=== PATIENT | male | born 1955 | race Caucasian/White ===

== ENCOUNTER 2017-01-21 09:15 | Observation (INO) | payer MEDICARE ==
[2017-01-21] MEDS ORDERED: Ondansetron HCl/PF 4 MG/2 ML Vial ONE ×2 (11:34→17:20)
[2017-01-21] MEDS ORDERED: Fentanyl 100 MCG/2 ML VIAL ONE (11:34)
[2017-01-21 12:00] LABS: #Eosinphils 0.1 thou/uL (0.0-0.7); #Monocytes 0.5 thou/uL (0.11-0.59); #Neutrophils 3.5 thou/uL (1.40-6.50); %Basophils 0.1 % (0.0-1.0); %Eosinophils 2.5 % (0.0-10.0); %Lymphocytes 19.5 % (21.0-51.0); %Monocytes 10.1 % (0.0-10.0); Hematocrit 52.5 % (42.0-52.0); Mean Platelet Volume 8.3 fL (7.4-10.4); Red Blood Cell (RBC) Count 5.91 mill/uL (4.70-6.10); White Blood Cell (WBC) Count 5.2 thou/uL (4.8-10.8)
[2017-01-21 12:21] LABS: ALT (SGPT) 31 U/L (8-55); AST (SGOT) 60 U/L (5-34); Alkaline Phosphatase 88 U/L (40-150); Anion Gap 12 mmol/L (10-20); BUN (Urea Nitrogen) 8 mg/dL (8.4-25.7); Bilirubin, Total 3.7 mg/dL (0.2-1.2); CK (CPK) 138 U/L (30-200); Calc. Creatinine Clearance 0 mL/min (70-130); Calcium 8.4 mg/dL (7.8-10.44); Carbon Dioxide 21 mmol/L (23-31); Chloride 104 mmol/L (98-107); Estimated GFR-MDRD Greater than 90; Lipase 7 U/L (8-78); Protein, Total 7.7 g/dL (5.8-8.1)
[2017-01-21 12:26] LABS: Lactic Acid - Sepsis 1.9 mmol/L (0.5-2.2)
[2017-01-21 12:32] LABS: Troponin I Less than 0.010 ng/mL (< 0.028)
--- NOTE | 2017-01-21 12:47 | RAD ---
UPRIGHT PORTABLE CHEST 1 VIEW: Date: 01/21/17 HISTORY: 61-year-old male with nausea, vomiting, and abdominal pain. COMPARISON: 11/30/04. FINDINGS: Monitor leads overlie the chest. Heart size is within normal limits. The lungs are clear. IMPRESSION: No acute intrathoracic disease. Stable from prior study. POS: OFF
--- NOTE | 2017-01-21 14:40 | CT ---
CT ABDOMEN AND PELVIS WITH CONTRAST: HISTORY: Abdominal pain. Nausea. Vomiting. History of liver disease. COMPARISON: None. TECHNIQUE: Multiple axial tomograms obtained through the abdomen and pelvis with IV enhancement FINDINGS: The liver is small with irregular margins and mild heterogeneity, consistent with changes of cirrhos is. No focal liver mass identified. There are two or three tiny cystic lesions in the liver, measu ring up to 1 cm. There is splenomegaly, and there are venous varices in the splenic hilum, consiste nt with changes of portal hypertension. The pancreas is unremarkable. The adrenal glands appear normal. The kidneys are unremarkable. A small, 1 cm cyst in the left kidney is noted. There is no evidence of hydronephrosis. No enhancing renal mass lesion. There are several small gallstones seen in the dependent portion of the gallbladder, which is mildly distended. No evidence of pericholecystic edema. Small bowel loops appear of normal caliber. The appendix is normal. The urinary bladder is unremar kable. No significant prostatic enlargement. The aorta is normal in caliber. No adenopathy identi fied. IMPRESSION: 1. There are changes indicating cirrhosis and portal hypertension with splenomegaly. No evidence o f ascites. 2. Cholelithiasis is documented. 3. Tiny renal cyst and tiny hepatic cystic lesions are seen. POS: [facility]
[2017-01-21 17:20] LABS: Bilirubin Small (Negative); Blood, Urine Trace (Negative); Glucose, Urine (Dipstick) Negative (Negative); Ketone, Urine Negative (Negative); Nitrite Negative (Negative); Protein, Urine (Dipstick) Negative (Neg-Trace)
[2017-01-21 17:21] LABS: Bacteria/HPF None Seen HPF (None Seen); Hyaline Casts/LPF 0-3 HYALINE CAST LPF (0-3 Hyaline); Squamous Epithelial None Seen HPF (0-3); WBC/HPF 0-3 HPF (0-3)
[2017-01-21] MEDS ORDERED: Ondansetron HCl/PF 4 MG/2 ML Vial IVP PRN (19:54)
[2017-01-21] MEDS ORDERED: Ondansetron ODT 4 MG TAB SL PRN (19:54)
[2017-01-21 20:02] VITALS: BMI 32.1
[2017-01-21] MEDS ORDERED: Morphine Sulfate 2 MG/ML SYRINGE SLOW IVP PRN (20:42)
[2017-01-21] MEDS ORDERED: Ondansetron HCl/PF 4 MG/2 ML Vial SLOW IVP PRN (20:43)
[2017-01-21] MEDS: Morphine Sulfate 2 MG/ML SYRINGE SLOW IVP PRN (23:27)
[2017-01-21] MEDS: traZODone HCl 50 MG TAB PO PRN (23:28)
--- NOTE | 2017-01-22 01:16 | HP ---
DATE OF ADMISSION: 01/21/2017 CHIEF COMPLAINT: Abdominal pain and vomiting. HISTORY OF PRESENT ILLNESS: Mr. Hairston is a 61-year-old white male with a colorful past who comes in for 3 days history of abdominal pain, primarily in the right upper quadrant. This has been associa sai with vomiting numerous times until today, which he apparently has not had any vomiting. He does state he did have some blood in the vomitus on a couple of occasions, but also noted that he had a \\\\"cut in his mouth during that time.\\\\" Again, he has had no vomiting today, last bowel movement 3 days ago. No fevers or chills, no chest pain, no shortness of breath. He presented to the emergency department for evaluation, and was subsequently admitted, although I a m not quite sure why. GI was consulted and Dr. Carty did see the patient upon the floor this evenin g, labs have been ordered and the plan for abdominal ultrasound has been made for tomorrow. Since admission, the patient had some abdominal pain in the right upper quadrant, when I came him to see him, he was asleep. He denies any other new problems. In further talking with him, he tells me that his current of many years is leaving him and left 3 days ago when his symptoms started. He also tells me that he does have a history of cirrhosis, h e was told probably 5 years ago, but was never confirmed until more recently. When asked about risk factors, he did have one episode of 6 months of binge drinking when he was around 41 years old when his first , and also tells me that he has known hepatitis C from his years of drug using m any years ago. He has no other current complaints. No other history to give. PAST MEDICAL HISTORY: 1. Cirrhosis, likely secondary to hepatitis C. 2. Hepatitis C, chronic. Not confirmed, but per history. 3. Questionable dementia. 4. Depression. 5. Post-traumatic stress disorder: This is interesting that he states he has post-traumatic stress disorder not associated with \\\\"killing that man\\\\" but more from watching his . PAST SURGICAL HISTORY: None. HOME MEDICATIONS: Klonopin 0.5 mg p.o. q.p.m., has not taken in quite some time. ALLERGIES: No known drug allergies. He does not tolerate LATEX well. FAMILY HISTORY: Negative for history of clotting or bleeding disorders, he has no history of immune dysfunction. No premature coronary artery disease. SOCIAL HISTORY: Negative for habits x3 right now, he has smoked a half to 1 pack per day for many y ears. No IV drugs currently and no alcohol. He states he did used to do drugs \\\\"a long time ago\\\\ " and when asked about the multiple scars on his arms, did admit to skin popping. Additionally, his did leave him 3 days ago. REVIEW OF SYSTEMS: Ten point review of systems was performed and is negative for all other systems except as stated as per HPI. PHYSICAL EXAMINATION: VITAL SIGNS: Temperature 99.1, pulse 73, blood pressure 134/81, respiratory rate 13, satting 96% on room air. His pulse rate was in the 70s while he was complaining of 7-10/10 pain. GENERAL: He is awake. He is alert. He is oriented x3. He is a well-developed, well-nourished, wh ite male who appears to be in no acute distress. HEENT: Normocephalic and atraumatic. Pupils equal, round, reactive to light bilaterally, mucous me mbranes are moist. There are no visible lesions. He has no thrush. NECK: Supple. He has no JVD, no thyromegaly. Normal carotids. LUNGS: Clear anteriorly, some faint bibasilar crackles that do not clear with deep inspiration. He has no dullness. He has no prolonged expiratory phase. No wheezes, rales or rhonchi are present. CARDIOVASCULAR: Normal S1, S2. He has a regular rhythm and a normal rate. He has no audible murmur s. ABDOMEN: Soft and is nontender, nondistended. He has normoactive bowel sounds present in all 4 fab[address]ants. There is no rebound, rigidity, or guarding. He has no Durant sign. EXTREMITIES: Show no cyanosis, no clubbing. He does have 1+ edema to the mid tibial level. He has 1+ peripheral pulses in both bilateral lower extremities. SKIN: Warm, moist, and well perfused. He has diffuse scarring present on the reachable areas of hi s arms from the wrist up to the mid bicep region bilaterally. It is well healed. There is no evide nce of fluctuance, erythema, or recent wound. MUSCULOSKELETAL: Normal to inspection, there is no inflamed or hot joints. There is no palpable caroline int effusions. NEUROLOGIC: Cranial nerves II through XII are grossly intact with no focal deficits. He has normal speech. He has 5/5 strength. LABORATORY DATA AND IMAGING: CMP is normal except for an AST of 60. His total bilirubin is 3.7. T roponin I was negative at less than 0.10. MB was normal at 2.8 and CK was 138. CBC showed a white count of 5.2, hemoglobin 17.4, hematocrit of 58.5, and platelets are low at 80,00 0, likely consistent with cirrhosis. Urinalysis was negative. Chest x-ray was clear. There is no acute cardiopulmonary disease. CT of the abdomen and pelvis ladarius ws cirrhosis with splenomegaly and evidence of portal hypertension. There is no ascites and he does have cholelithiasis present. ASSESSMENT AND PLAN: 1. Nausea, vomiting, right upper quadrant pain: Certainly could present his gallbladder disease; h owever, I found interesting that the symptoms coincide when his left him [address] Carty from GI has been consulted and plans on doing an abdominal ultrasound, has multiple labs including hepatitis B and C serologies which I concur with. He also has an ammonia level checked, but current ly the patient is alert and oriented x3. We will start on lactulose 10 grams by mouth, which we maday l continue. We will increase his morphine a little bit as he is still complaining of discomfort, an d we will add something to help him sleep tonight at his request. 2. Cirrhosis: Likely secondary to hepatitis C. He denies having any treatment for hepatitis C at any point. 3. History of chronic hepatitis C: Status unknown. Antibodies being drawn. 4. Depression. 5. Post-traumatic stress disorder. 6. Past history of IV drug abuse with no known recent activity.
--- NOTE | 2017-01-22 04:21 | CON ---
DATE OF CONSULTATION: 01/21/2017 CHIEF COMPLAINT: Abdominal pain. HISTORY OF PRESENT ILLNESS: Mr. Hairston is a 61-year-old man with cirrhosis of the liver, who present ed to the emergency room with abdominal pain. He has had right upper quadrant aching, severe pain o n and off for years; however, has been more persistent over the last 3 days. The pain lasts for elgin rs at a time. With this episode, he did have persistent nausea, which is a new symptom with this pa in. When he gets the pain, he stops all oral intake and therefore is unsure if the pain actually wo rsens with oral intake, but his assumption is that it would. He has had no diarrhea, constipation o r blood in the stool. He normally has a bowel movement daily; however, his last bowel movement now has been 3 days ago. His weight has been stable. His last drink of alcohol was several months ago. He reports a significant psychiatric history with PTSD. When times get hard, he will fall back on drinking. He reports a history of hepatitis C infection. PAST MEDICAL HISTORY: Chronic liver disease and hepatitis C, PTSD, cirrhosis, possibly dementia. PAST SURGICAL HISTORY: Negative. FAMILY HISTORY: Negative for GI malignancies or liver disease. SOCIAL HISTORY: Relapses on alcohol occasionally, but has not drank for several months. No drugs. He does smoke half a pack to a pack per day. ALLERGIES: LATEX. MEDICATIONS: Currently as an inpatient include pantoprazole and morphine, has been on clonazepam in the past. REVIEW OF SYSTEMS: Negative x10 systems reviewed except as stated in the history of present illness . PHYSICAL EXAMINATION: VITAL SIGNS: Temperature 96.6, pulse 77, blood pressure 131/77. GENERAL: He is in no acute distress. He is awake and alert. HEENT: Eyes have no scleral icterus. Oropharynx is clear, without lesions. NECK: No cervical or supraclavicular lymphadenopathy. LUNGS: Clear to auscultation bilaterally. HEART: Regular rate and rhythm. ABDOMEN: Soft. He has no significant tenderness in his right upper quadrant to exam currently. Hi s bowel sounds are active. EXTREMITIES: No lower extremity edema. NEUROLOGICAL: There is no asterixis on neurological exam. LABORATORY DATA: White blood cell count 5.2, hemoglobin 17.4, platelets 80, creatinine 0.54 with so dium of 133. Bilirubin is 3.7, AST 60, ALT 31, alkaline phosphatase 88, albumin 2.7, lipase 7. Las t INR was in August with 1.2. IMAGING: He had a CT scan of the abdomen and pelvis in the ER, which showed cholelithiasis, nodular liver and changes of portal hypertension were noted, varices in the splenic hilum were noted and th e spleen was enlarged. IMPRESSION: 1. Right upper quadrant pain. This very well might be due to symptomatic cholelithiasis; however, given his decompensated cirrhosis, he would be at significant risk for surgical intervention. We wi ll check an ultrasound to check for changes of acute cholecystitis, but otherwise we should likely f ollow more conservative management. 2. Cirrhosis of liver advanced Child's class B with a Child score of 9. This is his last INR from August. He has a history of alcohol abuse and hepatitis C. We will check additional labs to further e valuate this. If he is not immune to hepatitis A and hepatitis B, should be vaccinated. 3. Post-traumatic stress disorder. He does report some confusion. His last bowel movement was 3 d ays ago. I would start him on lactulose now. 4. Splenic varices and portal hypertension. He should eventually undergo esophagogastroduodenoscop y for screening for esophageal varices. This can be done as an outpatient. 5. There is no evidence of ascites by the CT scan. 6. He is due for hepatoma screening. RECOMMENDATIONS: 1. Check INR, alpha fetoprotein, viral hepatitis panel, additional labs for other etiologies for ch ronic liver disease. 2. Ultrasound of the gallbladder and liver.
[2017-01-22] MEDS: Morphine Sulfate 2 MG/ML SYRINGE SLOW IVP PRN ×5 (04:43→22:27)
[2017-01-22 06:32] LABS: Prothrombin Time 17.6 SEC (12.0-14.7)
[2017-01-22 06:35] LABS: #Lymphocytes 0.7 thou/uL (1.20-3.40); #Monocytes 0.3 thou/uL (0.11-0.59); %Basophils 1.2 % (0.0-1.0); %Eosinophils 1.2 % (0.0-10.0); %Lymphocytes 23.8 % (21.0-51.0); %Monocytes 9.6 % (0.0-10.0); Hematocrit 46.2 % (42.0-52.0); Mean Platelet Volume 7.8 fL (7.4-10.4); Red Blood Cell (RBC) Count 5.27 mill/uL (4.70-6.10)
[2017-01-22 06:50] LABS: ALT (SGPT) 28 U/L (8-55); AST (SGOT) 57 U/L (5-34); Alkaline Phosphatase 84 U/L (40-150); Anion Gap 10 mmol/L (10-20); BUN (Urea Nitrogen) 9 mg/dL (8.4-25.7); Bilirubin, Total 3.4 mg/dL (0.2-1.2); Calc. Creatinine Clearance 208 mL/min (70-130); Calcium 8.3 mg/dL (7.8-10.44); Carbon Dioxide 21 mmol/L (23-31); Chloride 106 mmol/L (98-107); Estimated GFR-MDRD Greater than 90; Globulin 4.6 g/dL (2.4-3.5); Iron 235 ug/dL (65-175); Protein, Total 7.3 g/dL (5.8-8.1)
--- NOTE | 2017-01-22 08:29 | ULT ---
RIGHT UPPER QUADRANT ULTRASOUND: Date: 01-22-17 History: Right upper quadrant pain. Cholelithiasis noted on CT exam one day ago. FINDINGS: There is a nodular peripheral contour of the liver suggesting cirrhosis. There is heterogeneous echo texture of the liver. There is a small anechoic cystic structure seen in the left hepatic lobe measu ring 1.1 cm also seen on recent CT scan exam on 01-21-17 demonstrating characteristics most consiste nt with a small cyst. There is also an anechoic structure in the right hepatic lobe measuring 1.3 cm likely also attributable to a small cyst. There is echogenic material in the gallbladder lumen, some of which demonstrates posterior shadowing , consistent with cholelithiasis as well as gallbladder sludge. Gallbladder wall is at the upper jain its of normal in thickness measuring 0.3 cm. Common duct is normal in caliber measuring 0.5 cm in diameter. Pancreas is mostly obscured but the limited visualized portion of the pancreas, visualized portion o f the IVC, and right kidney demonstrate a normal sonographic appearance. The right kidney measures 1 0.4 cm in length. IMPRESSION: 1. Lobulated margin of the liver which also has a heterogeneous appearance and findings are likely a ttributable to cirrhosis. 2. Right and left hepatic lobe cyst. 3. Cholelithiasis as well as gallbladder sludge. Gallbladder wall is at the upper limits of normal i n thickness. POS: [facility]
[2017-01-22] MEDS ORDERED: Famotidine/PF 20 mg/2ml Vial SLOW IVP SCH (09:00)
[2017-01-22] MEDS ORDERED: Pantoprazole 40 MG VIAL IVP SCH (09:00)
--- NOTE | 2017-01-22 13:06 | PDOC.PN ---
- Subjective Encounter Start Date: 01/22/17 Encounter Start Time: 13:04 no n/v no f/c no cp - Objective Resuscitation Status: Resuscitation Status FULL:Full Resuscitation MAR Reviewed: Yes Vital Signs & Weight: Vital Signs (12 hours) Temp Pulse Resp BP Pulse Ox 01/22/17 11:35 97.8 F 65 16 134/78 97 01/22/17 08:16 98.1 F 56 L 20 01/22/17 08:05 98.1 F 56 L 20 143/83 H 96 Weight Weight 237 lb 1.6 oz I&O: 01/21/17 01/22/17 01/23/17 06:59 06:59 06:59 Intake Total 11 Balance 11 Result Diagrams: 01/22/17 06:09 01/22/17 06:09 Phys Exam - Physical Examination Constitutional: NAD HEENT: PERRLA Neck: no JVD Respiratory: no wheezing Cardiovascular: no significant murmur Gastrointestinal: non-tender Musculoskeletal: pulses present Neurological: normal sensation Psychiatric: A&O x 3 Dx/Plan (1) Abdominal pain Code(s): R10.9 - UNSPECIFIED ABDOMINAL PAIN Status: Acute (2) Cirrhosis Code(s): K74.60 - UNSPECIFIED CIRRHOSIS OF LIVER Status: Acute (3) Gall stone Code(s): K80.20 - CALCULUS OF GALLBLADDER W/O CHOLECYSTITIS W/O OBSTRUCTION Status: Acute (4) Nausea & vomiting Code(s): R11.2 - NAUSEA WITH VOMITING, UNSPECIFIED Status: Acute (5) Thrombocytopenia Code(s): D69.6 - THROMBOCYTOPENIA, UNSPECIFIED Status: Acute (6) Chronic hepatitis C Code(s): B18.2 - CHRONIC VIRAL HEPATITIS C Status: Chronic (7) Mild protein-energy malnutrition Code(s): E44.1 - MILD PROTEIN-CALORIE MALNUTRITION Status: Chronic (8) Obesity (BMI 30.0-34.9) Code(s): E66.9 - OBESITY, UNSPECIFIED Status: Chronic (9) Tobacco dependence Code(s): F17.200 - NICOTINE DEPENDENCE, UNSPECIFIED, UNCOMPLICATED Status: Chronic - Plan * f/u gi plan for gall stone * start propranolol, spironolacton * monitor labs
[2017-01-22] MEDS ORDERED: Spironolactone 25 MG TAB PO SCH (13:15)
[2017-01-22] MEDS: traZODone HCl 50 MG TAB PO PRN (22:22)
--- NOTE | 2017-01-22 23:10 | PRG ---
DATE OF SERVICE: 01/22/2017 SUBJECTIVE: Mr. Hairston has had multiple bowel movements with incontinence following the dose of lact ulose. His right upper quadrant pain is improved. It is unclear if that improved with the bowel mo vements or if that is just the usual nature of his pain that comes and goes. OBJECTIVE: VITAL SIGNS: Temperature 98.5, pulse 53, blood pressure 118/69. GENERAL: He is in no acute distress. He is awake and alert. LUNGS: Clear to auscultation bilaterally. HEART: Regular rate and rhythm. ABDOMEN: Soft. Mild tenderness in the right upper quadrant without guarding. Bowel sounds are pre sent and nondistended. EXTREMITIES: No lower extremity edema. IMPRESSION: 1. Right upper quadrant pain. This is most likely secondary to symptomatic cholelithiasis; however , functional pain might also be contributing and also he had some constipation which is currently re solved. Pain is improved today; however, it comes and goes. Ideally, he would undergo cholecystect donna for symptomatic cholelithiasis; however, given his decompensated advanced child's B cirrhosis, w ould try to avoid surgery on his gallbladder if possible. The ultrasound does not show changes of a cute cholecystitis. He is really minimally tender at this point. There is a significant functional overlay with the psychiatric history. We will hold off surgical referral at this time. 2. Decompensated cirrhosis with a child score of 9. This is most likely due to hepatitis C by hist ory. However, the viral load is pending. RECOMMENDATIONS: 1. Stop lactulose as he had incontinence and diarrhea with a single dose of 15 mL. 2. If his pain returns and becomes persistently severe, then we might ultimately have to consider s urgical options. 3. For now, I would plan discharge tomorrow and outpatient followup for maintenance of his cirrhosi s. 4. Await additional blood work and was sent for evaluation of liver disease. Await alpha fetoprote in. His iron saturation was noted to be elevated, so hemochromatosis gene PCR has been requested. 5. Anticipate discharge home tomorrow with outpatient followup for routine care of his cirrhosis.
[2017-01-23 05:30] LABS: ALT (SGPT) 31 U/L (8-55); AST (SGOT) 58 U/L (5-34); Alkaline Phosphatase 87 U/L (40-150); Anion Gap 11 mmol/L (10-20); BUN (Urea Nitrogen) 10 mg/dL (8.4-25.7); Bilirubin, Total 3.3 mg/dL (0.2-1.2); Calc. Creatinine Clearance 191 mL/min (70-130); Calcium 8.4 mg/dL (7.8-10.44); Carbon Dioxide 19 mmol/L (23-31); Chloride 109 mmol/L (98-107); Estimated GFR-MDRD Greater than 90; Protein, Total 7.7 g/dL (5.8-8.1)
[2017-01-23 07:30] LABS: Hepatitis A Total ABS Positive (Negative)
[2017-01-23 08:11] VITALS: BP 139/81; TEMP 98.3
[2017-01-23] MEDS: Morphine Sulfate 2 MG/ML SYRINGE SLOW IVP PRN (09:41)
--- NOTE | 2017-01-23 11:33 | PDOC.PN ---
- Subjective Encounter Start Date: 01/23/17 Encounter Start Time: 11:32 Patient seen and examined. No new complaints. No overnight events - Objective Resuscitation Status: Resuscitation Status FULL:Full Resuscitation MAR Reviewed: Yes Vital Signs & Weight: Vital Signs (12 hours) Temp Pulse Resp BP BP Pulse Ox 01/23/17 08:13 98.3 F 54 L 16 01/23/17 07:55 98.3 F 54 L 16 139/81 95 01/23/17 05:00 61 18 131/75 Weight Weight 237 lb 1.6 oz I&O: 01/22/17 01/23/17 01/24/17 06:59 06:59 06:59 Intake Total 12 255 Balance 12 255 Result Diagrams: 01/22/17 06:09 01/23/17 04:58 Phys Exam - Physical Examination Constitutional: NAD HEENT: PERRLA Neck: no JVD Respiratory: no wheezing Cardiovascular: no significant murmur Gastrointestinal: non-tender Musculoskeletal: pulses present Neurological: moves all 4 limbs Psychiatric: A&O x 3 Skin: normal turgor Dx/Plan (1) Abdominal pain Code(s): R10.9 - UNSPECIFIED ABDOMINAL PAIN Status: Acute (2) Cirrhosis Code(s): K74.60 - UNSPECIFIED CIRRHOSIS OF LIVER Status: Acute (3) Gall stone Code(s): K80.20 - CALCULUS OF GALLBLADDER W/O CHOLECYSTITIS W/O OBSTRUCTION Status: Acute (4) Nausea & vomiting Code(s): R11.2 - NAUSEA WITH VOMITING, UNSPECIFIED Status: Acute (5) Thrombocytopenia Code(s): D69.6 - THROMBOCYTOPENIA, UNSPECIFIED Status: Acute (6) Chronic hepatitis C Code(s): B18.2 - CHRONIC VIRAL HEPATITIS C Status: Chronic (7) Mild protein-energy malnutrition Code(s): E44.1 - MILD PROTEIN-CALORIE MALNUTRITION Status: Chronic (8) Obesity (BMI 30.0-34.9) Code(s): E66.9 - OBESITY, UNSPECIFIED Status: Chronic (9) Tobacco dependence Code(s): F17.200 - NICOTINE DEPENDENCE, UNSPECIFIED, UNCOMPLICATED Status: Chronic - Plan * doing better * d/c home * out pt f/u with pcp and gi
--- NOTE | 2017-01-24 06:20 | DIS ---
DATE OF ADMISSION: 01/21/2017 DATE OF DISCHARGE: 01/23/2017 DISCHARGE DIAGNOSES: 1. Right upper quadrant pain, possibly secondary to combination of symptomatic cholelithiasis and c onstipation. 2. Cirrhosis of the liver advanced Child's class B with a Child score of 9. 3. History of alcohol abuse. 4. Hepatitis C. 5. Posttraumatic stress disorder. 6. Splenic varices and portal hypertension. 7. Mild protein energy malnutrition. 8. Thrombocytopenia secondary to cirrhosis. 9. Nausea and vomiting resolved. 10. Mild tobacco dependence, stable. 11. Obesity with a BMI between 30 and 34. DISCHARGE MEDICATIONS: Include propranolol 5 mg p.o. q.8 hours, Aldactone 25 mg p.o. daily, Zofran 4 mg oral dissolving tablets q.8 hours p.r.n. for nausea and vomiting and Nexium 20 mg p.o. daily. CONSULTANTS: Dr. Carty. DIAGNOSTIC DATA: The patient's studies done this hospital stay was CT scan of the abdomen and pelvi s, which showed cirrhosis, portal hypertension with splenomegaly. No evidence of ascites or choleli thiasis. Also has an ultrasound, which pretty much showed cirrhosis. BRIEF HOSPITAL COURSE: A 61-year-old pleasant gentleman came into the hospital with abdominal pain and vomiting. Please refer to the admitting physician's H\T\P for further details. The nausea and vomiting resolved with IV fluids and he got some pain medications for the abdominal pain. CT scan s howed gallstones. Because of his decompensated cirrhosis, he was not a good candidate for surgery; we decided to do conservative management. He improved with this treatment and GI is right now okay with this discharge. They also tested some of the lab work, which they ordered this hospital stay a re pending like the alpha-fetoprotein and PCR, which they will follow up in the office as an outpati ent. He is right now medically stable to be discharged to be followed by PCP and GI. He is asked t o come back to the emergency room in case symptoms recur. Total time for this discharge took 35 minutes.
[2017-01-24 13:16] LABS: Hep C PCR-Quant 666000 IU/mL (.)
[2017-01-24 15:25] LABS: Alpha-1-Antitrypsin 161 mg/dL (90-200)
== END 2017-01-23 13:48 | disposition home or self-care (01) ==
LOC: ERS 09:15 → 2SW 19:33
PROVIDERS: ADMIT Internal Medicine; ATTEND Internal Medicine
DX: R10.11 Right upper quadrant pain (principal); K74.60 Unspecified cirrhosis of liver; F10.11 Alcohol abuse, in remission; B19.20 Unspecified viral hepatitis C without hepatic coma; F43.10 Post-traumatic stress disorder, unspecified; I86.8 Varicose veins of other specified sites; K76.6 Portal hypertension; E44.1 Mild protein-calorie malnutrition; D69.59 Other secondary thrombocytopenia; R11.2 Nausea with vomiting, unspecified; E66.9 Obesity, unspecified; K80.20 Calculus of gallbladder without cholecystitis without obstruction; F32.9 Major depressive disorder, single episode, unspecified; F17.210 Nicotine dependence, cigarettes, uncomplicated; R16.1 Splenomegaly, not elsewhere classified; Z68.32 Body mass index [BMI] 32.0-32.9, adult; Z79.899 Other long term (current) drug therapy; Z91.040 Latex allergy status; Z86.59 Personal history of other mental and behavioral disorders
CPT/HCPCS: 71010; 74177; 76705; 80053 ×3; 81256; 82103; 82104; 82105; 82550; 82553; 82728; 83516 ×2; 83540; 83550; 83605; 83690; 84484; 85025 ×2; 85610; 86704; 86706; 86708; 87340; 87522; 87902; 93005; 94760; 96361; 96374; 96375 ×3; 96376 ×4; 99285; G0378; 36415; 81003; 81015; A4216; C9113; J2270; J2405; J3010

== ENCOUNTER 2017-02-07 06:21 | Emergency (ER) | payer MEDICARE ==
[2017-02-07 06:56] LABS: Hematocrit 44.9 % (42.0-52.0); Mean Platelet Volume 7.5 fL (7.4-10.4); Red Blood Cell (RBC) Count 4.99 mill/uL (4.70-6.10); White Blood Cell (WBC) Count 2.8 thou/uL (4.8-10.8)
[2017-02-07 07:05] LABS: ALT (SGPT) 34 U/L (8-55); AST (SGOT) 51 U/L (5-34); Alkaline Phosphatase 82 U/L (40-150); Anion Gap 13 mmol/L (10-20); BUN (Urea Nitrogen) 10 mg/dL (8.4-25.7); Bilirubin, Total 0.9 mg/dL (0.2-1.2); Calc. Creatinine Clearance 0 mL/min (70-130); Calcium 8.2 mg/dL (7.8-10.44); Carbon Dioxide 19 mmol/L (23-31); Chloride 105 mmol/L (98-107); Estimated GFR-MDRD 38; Globulin 4.2 g/dL (2.4-3.5); Lipase 20 U/L (8-78); Protein, Total 6.8 g/dL (5.8-8.1)
[2017-02-07 07:16] LABS: Band 11 % (5-11); Neutrophil 42 % (42-75)
[2017-02-07 08:35] LABS: Bilirubin Negative (Negative); Blood, Urine Negative (Negative); Glucose, Urine (Dipstick) Negative (Negative); Ketone, Urine Negative (Negative); Nitrite Negative (Negative); Protein, Urine (Dipstick) > or equal to 300 mg/dL (Neg-Trace); Urobilinogen 0.2 mg/dL (0.2-1.0)
[2017-02-07 08:37] LABS: Bacteria/HPF None Seen HPF (None Seen); Hyaline Casts/LPF 0-3 HYALINE CAST LPF (0-3 Hyaline); RBC/HPF 0-3 HPF (0-3)
[2017-02-07 09:01] LABS: Renal Epithelial None Seen HPF (0-3); Transitional Epithelial NONE SEEN HPF (0-3); WBC/HPF 0-3 HPF (0-3)
== END 2017-02-07 10:44 | disposition home or self-care (01) ==
LOC: ERS 06:21
DX: L28.0 Lichen simplex chronicus (principal); K74.60 Unspecified cirrhosis of liver; F17.210 Nicotine dependence, cigarettes, uncomplicated; F43.10 Post-traumatic stress disorder, unspecified; F03.90 Unspecified dementia, unspecified severity, without behavioral disturbance, psychotic disturbance, mood disturbance, and anxiety; F32.9 Major depressive disorder, single episode, unspecified
CPT/HCPCS: 36415; 80053; 81003; 81015; 83690; 85025; 87070; 87205; 99406

== ENCOUNTER 2018-10-08 18:09 | Emergency (ER) | payer MEDICARE ==
--- NOTE | 2018-10-08 18:35 | RAD ---
EXAM: Single view of the chest HISTORY: Chest congestion for 6 months COMPARISON: 01/21/2017 FINDINGS: Single view of the chest shows a normal sized cardiomediastinal silhouette. There is no derek dence of consolidation, mass, or pleural effusion. Degenerative changes are seen in the spine. IMPRESSION: No evidence of acute cardiopulmonary disease
[2018-10-08 19:20] LABS: #Basophils 0.1 thou/uL (0.0-0.2); #Eosinphils 0.3 thou/uL (0.0-0.7); #Lymphocytes 3.8 thou/uL (1.20-3.40); #Monocytes 1.4 thou/uL (0.11-0.59); #Neutrophils 5.9 thou/uL (1.40-6.50); %Eosinophils 2.4 % (0.0-10.0); %Lymphocytes 32.9 % (21.0-51.0); %Monocytes 12.2 % (0.0-10.0); %Neutrophils 51.4 % (42.0-75.0); Hemoglobin 17.7 g/dL (14.0-18.0); Mean Corpuscular HGB CONC 34.6 g/dL (32.0-36.0); Mean Corpuscular Hemoglobin 30.1 pg (27.0-31.0); Mean Corpuscular Volume 86.9 fL (78.0-98.0); Mean Platelet Volume 7.2 fL (7.4-10.4); Platelet Count 164 thou/uL (130-400); RBC Distribution Width 14.9 % (11.5-14.5); Red Blood Cell (RBC) Count 5.89 mill/uL (4.70-6.10); White Blood Cell (WBC) Count 11.5 thou/uL (4.8-10.8)
[2018-10-08 19:41] LABS: ALT (SGPT) 44 U/L (8-55); AST (SGOT) 71 U/L (5-34); Albumin 2.9 g/dL (3.4-4.8); Alkaline Phosphatase 144 U/L (40-150); Anion Gap 13 mmol/L (10-20); BUN (Urea Nitrogen) 12 mg/dL (8.4-25.7); Bilirubin, Total 2.2 mg/dL (0.2-1.2); Calc. Creatinine Clearance 0 mL/min (70-130); Calcium 8.4 mg/dL (7.8-10.44); Carbon Dioxide 19 mmol/L (23-31); Chloride 108 mmol/L (98-107); Estimated GFR-MDRD Greater than 90; Globulin 4.5 g/dL (2.4-3.5); Glucose 126 mg/dL (80-115); Potassium 4.2 mmol/L (3.5-5.1); Protein, Total 7.4 g/dL (5.8-8.1); Sodium 136 mmol/L (136-145)
== END 2018-10-08 22:03 | disposition home or self-care (01) ==
LOC: ERS 18:09
DX: J44.1 Chronic obstructive pulmonary disease with (acute) exacerbation (principal); F32.9 Major depressive disorder, single episode, unspecified; F03.90 Unspecified dementia, unspecified severity, without behavioral disturbance, psychotic disturbance, mood disturbance, and anxiety; F17.210 Nicotine dependence, cigarettes, uncomplicated
CPT/HCPCS: 36415; 71045; 80053; 85025

== ENCOUNTER 2018-10-17 11:37 | Inpatient (IN) | payer MEDICARE ==
[2018-10-17 12:35] LABS: #Eosinphils 0.1 thou/uL (0.0-0.7); #Monocytes 0.9 thou/uL (0.11-0.59); #Neutrophils 9.3 thou/uL (1.40-6.50); %Eosinophils 0.5 % (0.0-10.0); %Lymphocytes 8.6 % (21.0-51.0); %Monocytes 8.3 % (0.0-10.0); %Neutrophils 82.6 % (42.0-75.0); Hemoglobin 15.8 g/dL (14.0-18.0); Mean Corpuscular HGB CONC 33.2 g/dL (32.0-36.0); Mean Corpuscular Hemoglobin 29.8 pg (27.0-31.0); Mean Corpuscular Volume 89.7 fL (78.0-98.0); Mean Platelet Volume 8.1 fL (7.4-10.4); Platelet Count 91 thou/uL (130-400); RBC Distribution Width 16.1 % (11.5-14.5); Red Blood Cell (RBC) Count 5.31 mill/uL (4.70-6.10); White Blood Cell (WBC) Count 11.3 thou/uL (4.8-10.8)
[2018-10-17 12:53] LABS: ALT (SGPT) 35 U/L (8-55); AST (SGOT) 43 U/L (5-34); Albumin 2.6 g/dL (3.4-4.8); Alkaline Phosphatase 107 U/L (40-150); Anion Gap 9 mmol/L (10-20); BUN (Urea Nitrogen) 10 mg/dL (8.4-25.7); Bilirubin, Total 4.6 mg/dL (0.2-1.2); Calc. Creatinine Clearance 0 mL/min (70-130); Calcium 7.9 mg/dL (7.8-10.44); Carbon Dioxide 19 mmol/L (23-31); Chloride 106 mmol/L (98-107); Estimated GFR-MDRD Greater than 90; Globulin 3.7 g/dL (2.4-3.5); Glucose 123 mg/dL (80-115); Lipase 26 U/L (8-78); Potassium 3.8 mmol/L (3.5-5.1); Protein, Total 6.3 g/dL (5.8-8.1); Sodium 130 mmol/L (136-145)
[2018-10-17 12:55] LABS: Platelet Morphology Comment Appears Decreased; RBC Morphology Normal
--- NOTE | 2018-10-17 12:56 | ULT ---
US Gallbladder RUQ HISTORY: Right upper quadrant pain. COMPARISON: None. FINDINGS: Exam is technically difficult due to body habitus and bowel gas. Real-time imaging of the r ight upper quadrant showed a thick walled gallbladder with marked gallbladder wall edematous change. Small stones are present and some sludge. Gallbladder is very tortuous in appearance. The com mon bile duct is 5 mm. Liver parenchyma shows heterogeneity which would suggest cirrhotic change is difficult to assess due to technical factors described above. A small cyst is seen. The pancreas is obscured. The right kidney is nonobstructed and normal in size. IMPRESSION: 1. Small gallstones with a very abnormally thick-walled edematous appearing gallbladder raise the pos sibility of an acute cholecystitis. It would be less likely that these changes are on the basis of intrinsic liver disease. There are nodular cirrhotic changes of the liver.
[2018-10-17] MEDS ORDERED: Ketorolac Tromethamine 30 MG/ML VIAL ONE (14:05)
[2018-10-17] MEDS ORDERED: Morphine 4 MG/ML VIAL ONE (14:05)
[2018-10-17 14:31] LABS: INR-International Normal Ratio 1.2; PTT 31.5 SEC (22.9-36.1)
[2018-10-17] MEDS ORDERED: Acetaminophen 325 MG TAB PO PRN (14:55)
[2018-10-17] MEDS ORDERED: Benzonatate 100 MG CAP PO PRN (14:55)
[2018-10-17] MEDS ORDERED: Acetaminophen 650 MG Suppository PR PRN (14:55)
[2018-10-17] MEDS ORDERED: Sodium Chloride 0.65% Nasal 44 ML BOT EA NARE PRN (14:55)
[2018-10-17] MEDS ORDERED: Bisacodyl 5 MG TAB PO PRN ×2 (14:55)
[2018-10-17] MEDS ORDERED: hydrALAZINE 20 MG/ML VIAL SLOW IVP PRN (14:55)
[2018-10-17] MEDS ORDERED: cloNIDine 0.1 MG TAB PO PRN (14:55)
[2018-10-17] MEDS ORDERED: Diabetic Tussin 200 MG/10 ML UDCUP PO PRN (14:55)
[2018-10-17] MEDS ORDERED: Ondansetron PF 4 MG/2 ML Vial IVP PRN (14:55)
[2018-10-17] MEDS ORDERED: Senokot S 8.6-50 MG TAB PO PRN ×2 (14:55)
[2018-10-17] MEDS ORDERED: Sodium Chloride 0.9% (PF) 10 ML VIAL FS PRN (15:56)
[2018-10-17] MEDS ORDERED: MEROPENEM 1 GM/50 ML 1 GM in Premix Bag 1 BAG IVPB SCH (16:00)
[2018-10-17] MEDS ORDERED: Pantoprazole 40 MG VIAL IVP SCH (16:00)
--- NOTE | 2018-10-17 16:22 | HP ---
PRIMARY CARE PHYSICIAN: Magdaleno Dunn MD CHIEF COMPLAINT: Abdominal pain. HISTORY OF PRESENTING ILLNESS: Mr. Hairston is a very pleasant 62-year-old male with past medical history of hepatitis C leading to cirrhosis, who is currently admitted at [facility], was brought into the ER with above-mentioned complaint. History is mainly obtained by discussing with the patient himself. It is reviewed by discussion with the ER physician and charts are reviewed as above. Mr. Hairston reports that he has been in his usual health up until yesterday afternoon. He started to have sudden onset of sharp right upper quadrant and epigastric pain. Pain was intermittent in nature, 9/10 in intensity and radiated to his right lower quadrant. It was not associated with any nausea, vomiting, or diarrhea. He did not have any fever or chills. He could not account any relieving factors. He denies any similar symptoms in the past. He denies any blood in his stools or any dark colored stools. His last alcoholic drink was just before 09 of October. He said that he has been completely sober for the last seven months. He used to drink heavily up until 2012. In the emergency room, he underwent a general evaluation. His vitals were stable at the time of presentation. He had an ultrasound done, which showed a thick walled, adenomatous-appearing gallbladder with possible stones, raising the possibility of acute cholecystitis. His bilirubin was elevated as well with T bilirubin of 4.6. WBCs were 11.3 with 82% neutrophils. He is now being admitted to Internal Medicine team for acute cholecystitis. The emergency room physician, Dr. Esteves has discussed the case with on-call surgeon, Dr. See, who requests GI evaluation prior to possible cholecystectomy. PAST MEDICAL HISTORY: 1. History of hepatitis C. 2. History of cirrhosis, either due to hepatitis C or chronic alcoholism. 3. History of portal gastropathy. The patient reports that he was supposed to follow up with GI, Dr. Carty, for EGD, but never was able to do so. 4. Depression. 5. PTSD. PAST SURGICAL HISTORY: None as per the patient. ALLERGIES: NO KNOWN MEDICATION ALLERGIES. PAST PSYCHIATRIC HISTORY: History of severe depression with most recent suicide attempts that is why he is at [facility]. FAMILY HISTORY: No significant family history of any bleeding or clotting disorders. No premature coronary artery disease. SOCIAL HISTORY: He denies any recent alcohol use except for that mentioned in the HPI. Denies any drug abuse. Smokes about a half pack of cigarettes on a daily basis. HOME MEDICATIONS: Not updated yet. The patient does not remember the medications. REVIEW OF SYSTEMS: A 14-point review of system is done, it is negative except for those mentioned in the history and physical. PHYSICAL EXAMINATION: VITAL SIGNS: Upon presentation, blood pressure 122/76, pulse of 82, respirations 16, saturating 96% on room air, and temperature 98.3. GENERAL: No acute distress. Awake, alert, and oriented x3. Appears mildly jaundiced. HEENT: No scleral icterus. No conjunctival pallor. Head is normocephalic and atraumatic. Pupils are equal and reactive to light and accommodation. Extraocular movement intact. NECK: Supple without any lymphadenopathy, JVD, or bruit. CHEST: Clear to auscultation without any wheezing, rales, or rhonchi. Rate rhythm is regular without any murmurs, rubs, or gallops. ABDOMEN: Tender to palpation in the epigastric region as well as right upper quadrant. He does not appear to have any rebound, guarding, or rigidity. Bowel sounds are heard in all 4 quadrants. EXTREMITIES: Free of any cyanosis, clubbing, or edema. PSYCHIATRIC: Normal affect. SKIN: Free of any rashes or bruises. Feels warm and dry to touch. IMPRESSION AND PLAN: 1. Acute cholecystitis, likely due to gallstones. The patient will require Gastroenterology and General Surgery evaluations with possible ERCP as well as cholecystectomy. We will start him on meropenem for IV antibiotics and IV fluids and keep him n.p.o. after midnight. He is relatively hemodynamically stable and pain medications will be ordered as needed. We will repeat his liver enzymes in the morning. He does have history of cirrhosis, but according to the radiologist, it does not seem like that his cirrhotic morphology is responsible for his presenting symptoms at this time. 2. Abdominal pain due to #1. 3. Mild leukocytosis, this one is secondary to cholecystitis. We will start him on empiric antibiotic for GI coverage and recheck in the morning. 4. Hyperbilirubinemia. Once again, it is due to acute cholecystitis and cholelithiasis. 5. History of hepatitis C and cirrhosis, appears rather stable. Currently not having any acute issues. 6. History of depression and recent suicidal ideation. [facility] public service representative is in the room and they will follow the patient along in the inpatient setting as well. 7. History of alcohol abuse, currently abstinent. 8. Thrombocytopenia, it appears chronic. We will avoid any pharmacological DVT prophylaxis due to high risk of bleeding. Use SCDs instead. DISPOSITION: Mr. Hairston is currently being admitted to the non-ortho surgical floor for acute cholecystitis, most likely will require cholecystectomy. Estimated length of stay at this time is at least 2 to 3 midnights. Further management will depend upon his clinical course. Job ID: [id number]
[2018-10-17] MEDS: Sodium Chloride 0.9% 1,000 ML IV SCH (20:33)
--- NOTE | 2018-10-17 20:46 | CON ---
DATE OF CONSULTATION: 10/17/2018 REQUESTING PHYSICIAN: Dr. Law. REASON FOR CONSULTATION: Cholecystitis and cirrhosis. HISTORY OF PRESENT ILLNESS: Mr. Sridhar Hairston is a 62-year-old man with a history of cirrhosis secondary to hepatitis C and prior alcohol abuse. He was seen by my GI colleague, Dr. Enio Carty in hospital consultation for this back in late 2017. He was found to have hepatitis C genotype 1a. The patient has not really followed up for his cirrhosis. He has thrombocytopenia, but the cirrhosis appears to be otherwise fairly well compensated. There is no history of ascites or encephalopathy. His hepatitis C is untreated. The patient has a severe depression and is actually at the psychiatric facility at this time following recent suicide attempt. He states that last night around midnight, he had a fairly sudden onset of epigastric pain, which then shifted to the right upper quadrant. It was escalating and becoming more, more severe for several hours. There was some minimal nausea, but no vomiting. No fever with this. He never had any pain like this before. Upon presentation, he was found to have elevation of total bilirubin to 4.6, but it appears this is a chronic elevation, baseline is about 3, AST is 43 and LFTs otherwise normal, normal lipase. An abdominal ultrasound showed significant gallbladder wall thickening and edema with stones in the gallbladder lumen, all consistent with acute cholecystitis. The liver appears nodular. The common bile duct is only 5 mm in diameter. The patient has responded very well to IV morphine. He is actually sitting up in the side of his bed, eating barbecue chicken dinner and doing pretty well with this. He said he has had normal bowel movements earlier today. Surgical evaluation is pending. REVIEW OF SYSTEMS: Full review of systems including constitutional, head, eyes, ears, nose, throat, GI, , cardiovascular, respiratory, musculoskeletal, and neurologic systems are negative except as noted in the HPI. PAST MEDICAL HISTORY: 1. Hepatitis C, genotype 1a. 2. Prior alcohol abuse, abstinent for the past 7 months, except for some use last week associated with the 09 of October. 3. Cirrhosis, likely secondary to hepatitis C and prior alcohol abuse. 4. Depression, severe. 5. PTSD. 6. Suicide attempts. ALLERGIES: NO KNOWN DRUG ALLERGIES. OUTPATIENT MEDICATIONS: The patient does not remember the names. Old medication list includes: 1. Propranolol. 2. Ondansetron. 3. Spironolactone 25 mg daily. 4. Nexium 20 mg daily. SOCIAL HISTORY: Alcohol use is rare lately. He does smoke a half of pack cigarettes per day. No drug use. FAMILY HISTORY: Noncontributory. PHYSICAL EXAMINATION: VITAL SIGNS: Temperature 98.0, blood pressure 115/68, pulse 71, and 99% oxygen saturation on room air. GENERAL: Well and nontoxic appearing 62-year-old man, sitting up on the side of the bed comfortably, eating barbecue chicken for dinner. SKIN: No jaundice. No rashes were palpable. HEENT: Eyes, no scleral icterus. Extraocular movements intact. ENT, poor dentition. Mucous membranes moist. No oral lesions. LYMPH: No submandibular or supraclavicular lymphadenopathy. THYROID: Nontender to palpation. HEART: Regular rate and rhythm. LUNGS: Clear to auscultation bilaterally. ABDOMEN: Nondistended. Bowel sounds are present. Soft. Tender to palpation in the right upper quadrant, but no guarding or rebound tenderness. EXTREMITIES: No peripheral edema vessels. Radial pulses 2+ bilaterally. NEUROLOGIC: Cranial nerves 2 through 12 intact bilaterally. No focal deficits. LABORATORY STUDIES: WBC 11.3, hemoglobin 15.8, platelets 91. INR 1.2. Sodium 130, potassium 3.8, BUN 10, creatinine 0.63. Total bilirubin 4.6, alkaline phosphatase 107, AST 43, and ALT 35. IMAGING STUDIES: Abdominal ultrasound from earlier today demonstrated gallbladder wall thickening and edema with gallstones in the gallbladder lumen, raising the possibility of acute cholecystitis. Liver is nodular in appearance. Common bile duct measures only 5 mm. ASSESSMENT AND PLAN: 1. Acute cholecystitis. The patient's acute presentation and ultrasound findings are certainly suggestive of acute cholecystitis. Note, the common bile duct is normal and the bilirubin elevation is somewhat chronic, so I have a low suspicion for any retained stone in the common bile duct. There is no indication for endoscopic retrograde cholangiopancreatography. General surgery evaluation is pending. I did briefly speak with Dr. See, and she may be considering recommendation of cholecystostomy tube placement rather than cholecystectomy given the patient's liver disease. 2. Cirrhosis, secondary to hepatitis C and prior alcohol abuse. The patient's liver disease appears otherwise stable. INR is only 1.2. He does have low platelets and hypoalbuminemia, but good renal function. No acute issues with regard to his cirrhosis. GI can continue to follow while he is inpatient. Following discharge, the patient should follow up with Dr. Carty for further surveillance of his cirrhosis. Job ID: [id number]
[2018-10-17] MEDS ORDERED: Famotidine/PF 20 mg/2ml Vial SLOW IVP SCH (21:00)
[2018-10-17] MEDS: Morphine 2 MG/ML SYRINGE SLOW IVP PRN (21:56)
[2018-10-17] MEDS: MEROPENEM 1 GM/50 ML 1 GM in Premix Bag 1 BAG IVPB SCH (22:37)
[2018-10-18] MEDS: Morphine 2 MG/ML SYRINGE SLOW IVP PRN ×3 (02:18→16:37)
[2018-10-18 04:01] VITALS: BMI 33.1
[2018-10-18] MEDS: Sodium Chloride 0.9% 1,000 ML IV SCH (05:10)
[2018-10-18 05:21] LABS: #Basophils 0.1 thou/uL (0.0-0.2); #Eosinphils 0.2 thou/uL (0.0-0.7); #Lymphocytes 1.4 thou/uL (1.20-3.40); #Monocytes 1.1 thou/uL (0.11-0.59); #Neutrophils 5.8 thou/uL (1.40-6.50); %Basophils 0.6 % (0.0-1.0); %Eosinophils 2.1 % (0.0-10.0); %Lymphocytes 15.9 % (21.0-51.0); %Monocytes 13.2 % (0.0-10.0); %Neutrophils 68.3 % (42.0-75.0); Mean Corpuscular HGB CONC 33.3 g/dL (32.0-36.0); Mean Corpuscular Hemoglobin 30.4 pg (27.0-31.0); Mean Corpuscular Volume 91.1 fL (78.0-98.0); Mean Platelet Volume 8.5 fL (7.4-10.4); Platelet Count 78 thou/uL (130-400); Red Blood Cell (RBC) Count 4.93 mill/uL (4.70-6.10); White Blood Cell (WBC) Count 8.6 thou/uL (4.8-10.8)
[2018-10-18 05:44] LABS: ALT (SGPT) 28 U/L (8-55); AST (SGOT) 39 U/L (5-34); Albumin 2.4 g/dL (3.4-4.8); Alkaline Phosphatase 101 U/L (40-150); Anion Gap 8 mmol/L (10-20); BUN (Urea Nitrogen) 12 mg/dL (8.4-25.7); Bilirubin, Total 6.6 mg/dL (0.2-1.2); Calc. Creatinine Clearance 198 mL/min (70-130); Carbon Dioxide 21 mmol/L (23-31); Chloride 106 mmol/L (98-107); Estimated GFR-MDRD Greater than 90; Globulin 3.8 g/dL (2.4-3.5); Glucose 103 mg/dL (80-115); Potassium 4.3 mmol/L (3.5-5.1); Protein, Total 6.2 g/dL (5.8-8.1); Sodium 131 mmol/L (136-145)
[2018-10-18] MEDS: MEROPENEM 1 GM/50 ML 1 GM in Premix Bag 1 BAG IVPB SCH ×3 (05:54→21:09)
--- NOTE | 2018-10-18 06:59 | CON ---
DATE OF CONSULTATION: REASON FOR CONSULT: Abdominal pain. HISTORY OF PRESENT ILLNESS: Mr. Hairston is a 62-year-old man, who presented to the hospital with abdominal pain which began the afternoon the day before admission. He said the pain came on fairly rapidly and was sharp and intermittent, but was not getting any better. He denies any fevers or chills, nausea or vomiting, or diarrhea. He cannot identify any exacerbating or alleviating factors. He has a history of cirrhosis due to hepatitis C. Denies alcohol use in recent years. In the emergency room, he was found to have an elevated white count as well as an elevated bilirubin, and an ultrasound of the gallbladder showed stones, wall thickening, and pericholecystic fluid as well as an irregular contour to the liver consistent with cirrhosis. PAST MEDICAL HISTORY: Cirrhosis, hepatitis C, depression, PTSD. PAST SURGICAL HISTORY: None. PSYCHIATRIC HISTORY: He was recently being treated as an inpatient at [facility] for PTSD and depression. He denies suicidal ideation or attempts. FAMILY HISTORY: Noncontributory. SOCIAL HISTORY: He denies alcohol or drug abuse, but does smoke about a half pack a day of cigarettes. HOME MEDICATIONS: The patient is on Prozac, but does not remember his other medications. REVIEW OF SYSTEMS: Ten system review of systems is negative except per HPI. PHYSICAL EXAMINATION: VITAL SIGNS: The patient has been afebrile since admission, heart rate in the 70s, respirations 16, 95% saturated on room air, normal blood pressure. HEENT: Unremarkable. NECK: Supple without lymphadenopathy or thyroid nodules. HEART: Regular in its rate and rhythm without murmurs, rubs, or gallops. LUNGS: Clear to auscultation bilaterally. He does not have any pain with deep inspiration. ABDOMEN: Soft and nondistended. He is tender to palpation in the right upper quadrant without rigidity, rebound, or guarding. There is a fullness in the area where he is tender, suggestive of an enlarged gallbladder. Liver is not significantly enlarged on exam. No fluid wave or caput medusa. He is slightly jaundiced. EXTREMITIES: Warm and well perfused. He has mild lower extremity edema, which is worse on the right than the left leg. NEUROLOGIC: No focal deficits. No asterixis or tremor. PSYCHIATRIC: Somewhat flat affect, but alert, oriented, and appropriate. LABORATORY DATA: White count is elevated at 11.3, hematocrit 47.6, platelets 91. INR 1.2. BUN and creatinine 10 and 0.63. Sodium is low at 130 and bicarb is low at 19. Bilirubin is elevated at 4.6, and AST is slightly elevated at 43. Albumin is low at 2.6. Looking at past labs, his bilirubin has been mostly in the 3s for the past couple of years. Abdominal ultrasound images are reviewed and I agree with the written report. His gallbladder does look worse than his last ultrasound which was in 2017, although he had significant gallbladder wall thickening at that time. ASSESSMENT: Cholelithiasis, cholecystitis, and cirrhosis. Cirrhosis is fairly advanced with hypoalbuminemia, low platelets, and hyperbilirubinemia, which is all chronic. Risk for gallbladder surgery are elevated due to his cirrhosis. 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 He is on meropenem, which is appropriate coverage. We discussed options of cholecystectomy versus cholecystostomy, and also the risks and benefits of both. Overall, I would recommend percutaneous cholecystostomy given his advanced cirrhosis, and the patient would like to proceed with this. I have ordered this through Radiology and he is on the schedule for this tomorrow. I will continue to follow along while he is inpatient. Job ID: [id number]
[2018-10-18] MEDS ORDERED: Sodium Bicarbonate 2.5 MEQ/5 ML VIAL ONE (08:52)
[2018-10-18] MEDS ORDERED: Fentanyl 100 MCG/2 ML VIAL ONE (08:52)
[2018-10-18] MEDS ORDERED: Midazolam HCl 2 mg/2 ml Vial ONE (08:52)
[2018-10-18] MEDS ORDERED: Pantoprazole 40 MG VIAL IVP SCH (09:00)
[2018-10-18] MEDS ORDERED: Enoxaparin Sodium 40 MG/0.4 ML SYRINGE SC SCH (09:00)
--- NOTE | 2018-10-18 11:04 | CT ---
CT-guided PERCUTANEOUS CHOLECYSTOSTOMY For use in conjunction with Master Template Clinical Summary Sheet CLINICAL INDICATION: Acute cholecystitis in a non-surgical candidate MEDICATIONS: 2 mg of versed and 100 micrograms of Fentanyl were administered for conscious sedation. Vital signs were continuously monitored by nursing staff throughout the procedure. PROCEDURE: Informed consent was obtained. The patient was placed supine on the CT fluoroscopic table. Site overlying the right anterolateral aspect of the abdominal wall was marked. Site was prepped and draped in the usual sterile fashion. Buffered 1% lidocaine was administered overlying subcutaneou s tissues. 2 separate attempts utilizing a 5 [place] Path Logic catheter were made with CT guidance to access the gallbladder; however, due to the extent of the gallbladder wall thickening this proved to be unsuccessful. Utilizing an Accu-CheGymbox system, a microneedle was guided into the lumen of the gallbladder. There was confirmation of intraluminal positioning of the needle with aspiration of 2 cc of normal appearing bile. Following this a microwire was advanced into the lumen of the gallbladder. Utilizing the Accu-Chek exchange system, a 035 Amplatz wire was eventually exchanged thr ough the Accu-Cheks system. Following confirmation of Amplatz wire position within the lumen of the gallbladder and 8 Barbadian all-purpose drain was advanced into the lumen of the gallbladder. The pigtai l was fixated. There was aspiration of approximately 10 cc of normal appearing bile material. The patient tolerated the procedure without difficulty. The catheter was fixated to the skin utilizing 0 silk suture and a Percu-Stay device. IMPRESSION: Successful placement of percutaneous cholecystostomy tube.
[2018-10-18 12:41] LABS: BF Color Red; Clarity Cloudy/Turbid (Clear); Tube # 1
[2018-10-18 12:42] LABS: BF RBC Count - Manual 5225 /cumm; WBC/NonHematic-Auto 2200 /cumm
[2018-10-18 12:46] LABS: BF Segmented Neutrophils 95 %; Cell Count Non Hematic 2 %; Lymphocytes 3 %
--- NOTE | 2018-10-18 13:19 | PRG ---
DATE OF SERVICE: 10/18/2018 SUBJECTIVE: Mr. Hairston underwent percutaneous cholecystostomy tube placement earlier today. He says he is feeling quite a bit better. There is a bit of soreness around the tube site. No nausea or vomiting. He is about to advance his diet. He has been afebrile, receiving IV antibiotics. OBJECTIVE: VITAL SIGNS: Temperature 98.3, pulse 75, blood pressure 124/68, and 95% oxygen saturation on room air. GENERAL: No acute distress. HEART: Regular rate and rhythm. LUNGS: Clear to auscultation bilaterally. ABDOMEN: Cholecystostomy tube in place in the right upper quadrant, with drainage tubing has some cloudy fluid in it. EXTREMITIES: No peripheral edema. LABORATORY STUDIES: WBC down to 8.6, hemoglobin 15.0, platelets 78. INR 1.2. Sodium 131, potassium 4.3, BUN 12, creatinine 0.60. Total bilirubin went up to 6.6, AST only 39, ALT 28, alkaline phosphatase 101, lipase 26. Gallbladder fluid, wbc's 2200, rbc's 5225, and 95% neutrophils. ASSESSMENT AND PLAN: 1. Acute cholecystitis, now status post percutaneous cholecystostomy tube placement. This morning, the patient remains on IV meropenem. Dr. See is following. Appreciate the assistance of Interventional Radiology. 2. Cirrhosis, secondary to hepatitis C and prior alcohol abuse. Cirrhosis is otherwise stable. I again emphasized the importance of completely abstaining from alcohol with the patient. Plan to re-establish care with Dr. Carty in the GI Clinic for his cirrhosis, as well as his hepatitis C genotype 1a, following hospital discharge. Please call back anytime with questions or concerns. Job ID: [id number]
--- NOTE | 2018-10-18 13:25 | PDOC.PN ---
- Subjective Encounter Start Date: 10/18/18 (f/u cholecystitis) Encounter Start Time: 13:23 Subjective: Pt without complaints, some post procedure pain that responded to -: pain meds. Denies any new sx - Objective Vital Signs & Weight: Vital Signs (12 hours) Temp Pulse Resp BP Pulse Ox 10/18/18 08:15 98.3 F 75 18 124/68 95 10/18/18 04:25 98.3 F 72 16 117/71 96 Weight Weight 244 lb 15.995 oz Result Diagrams: 10/18/18 04:52 10/18/18 04:52 Phys Exam - Physical Examination Constitutional: NAD Respiratory: no wheezing, no rales, no rhonchi, clear to auscultation bilateral Cardiovascular: RRR, no significant murmur Gastrointestinal: soft, non-tender, no distention, positive bowel sounds Musculoskeletal: no edema Neurological: non-focal, moves all 4 limbs Psychiatric: normal affect Dx/Plan (1) Cholecystitis Code(s): K81.9 - CHOLECYSTITIS, UNSPECIFIED Status: Acute (2) Depression Code(s): F32.9 - MAJOR DEPRESSIVE DISORDER, SINGLE EPISODE, UNSPECIFIED Status : Chronic Qualifiers: Depression Type: unspecified Qualified Code(s): F32.9 - Major depressive disorder, single episode, unspecified (3) PTSD (post-traumatic stress disorder) Code(s): F43.10 - POST-TRAUMATIC STRESS DISORDER, UNSPECIFIED Status: Chronic (4) Abnormal LFTs Code(s): R79.89 - OTHER SPECIFIED ABNORMAL FINDINGS OF BLOOD CHEMISTRY Status : Chronic (5) Cirrhosis Code(s): K74.60 - UNSPECIFIED CIRRHOSIS OF LIVER Status: Chronic Qualifiers: Hepatic cirrhosis type: unspecified hepatic cirrhosis (6) Chronic hepatitis C Code(s): B18.2 - CHRONIC VIRAL HEPATITIS C Status: Chronic (7) Hyponatremia Code(s): E87.1 - HYPO-OSMOLALITY AND HYPONATREMIA Status: Chronic (8) Thrombocytopenia Code(s): D69.6 - THROMBOCYTOPENIA, UNSPECIFIED Status: Chronic - Plan * Diet resumed now s/p cholecystostomy tube * Appreciate Gen Surg and GI consults * continue meropenem * ID consult * Resume home meds to manage mood d/o and insomnia * Hyponatremia stable * monitor platelets - thrombocytopenia * d/c IVF * * dvt prophy - thrombocytopenia - no pharmacologic dvt prophy, ambulatory * gi prophy - change to PO protonix * * pt remains at high risk in current condition. *
[2018-10-18] MEDS ORDERED: Acetaminophen 500 MG TAB PO PRN (16:08)
[2018-10-18] MEDS ORDERED: Calcium Acetate 667 MG CAP ONE (20:35)
--- NOTE | 2018-10-18 22:40 | PDOC.GSPN ---
Surgery Progress Note: Subj - Subjective Narrative: Patient feels much better today. His abdominal pain has basically resolved. He is a little tender at the drain site for his percutaneous cholecystostomy tube. He has some clear bilious drainage. Assessment/plan: Acute cholecystitis in a cirrhotic patient, managed with a percutaneous cholecystostomy tube. The patient is feeling much better and his diet is being advanced. He'll require drain training to go home with the percutaneous cholecystostomy tube. He is concerned about the discharge plan since he came from inpatient psych unit and does not really have housing at this time. Her last case management to help him with options Surgery Progress Note: Obj - Vital signs Vital signs: Vital Signs - Most Recent Temp Pulse Resp BP Pulse Ox 98.9 F 79 16 126/73 95 10/18/18 19:49 10/18/18 19:49 10/18/18 19:49 10/18/18 19:49 10/18/18 20:43 Surgery Progress Note: Results - Labs Result Diagrams: 10/18/18 04:52 10/18/18 04:52 Lab results: Laboratory Results - last 24 hr 10/18/18 10:10 Fluid Source Fluid Tube Number 1 Fluid Color Red Fluid Clarity Cloudy/Turbid H Fluid WBC 2200 Fluid RBC (Manual) 5225 Fluid Seg Neutrophil % 95 Fluid Lymphocytes % 3 Non-Hematological % 2 Fluid Comment Note:
[2018-10-19 05:22] LABS: Anion Gap 7 mmol/L (10-20); BUN (Urea Nitrogen) 10 mg/dL (8.4-25.7); Calc. Creatinine Clearance 216 mL/min (70-130); Calcium 7.5 mg/dL (7.8-10.44); Carbon Dioxide 20 mmol/L (23-31); Chloride 108 mmol/L (98-107); Estimated GFR-MDRD Greater than 90; Glucose 97 mg/dL (80-115); Potassium 3.6 mmol/L (3.5-5.1); Sodium 131 mmol/L (136-145)
[2018-10-19 05:51] LABS: #Eosinphils 0.1 thou/uL (0.0-0.7); #Lymphocytes 1.4 thou/uL (1.20-3.40); #Monocytes 0.7 thou/uL (0.11-0.59); #Neutrophils 2.7 thou/uL (1.40-6.50); %Basophils 0.5 % (0.0-1.0); %Eosinophils 2.7 % (0.0-10.0); %Lymphocytes 28.5 % (21.0-51.0); %Neutrophils 54.3 % (42.0-75.0); Hemoglobin 14.1 g/dL (14.0-18.0); Hypochromia MODERATE=16-30 cells (100X) (0-5/hpf); MDiff Complete? YES; Mean Corpuscular HGB CONC 37.2 g/dL (32.0-36.0); Mean Corpuscular Hemoglobin 33.3 pg (27.0-31.0); Mean Corpuscular Volume 89.6 fL (78.0-98.0); Mean Platelet Volume 7.7 fL (7.4-10.4); Platelet Count 125 thou/uL (130-400); Platelet Morphology Comment Appears Decreased; Red Blood Cell (RBC) Count 4.23 mill/uL (4.70-6.10); White Blood Cell (WBC) Count 4.9 thou/uL (4.8-10.8)
[2018-10-19] MEDS: MEROPENEM 1 GM/50 ML 1 GM in Premix Bag 1 BAG IVPB SCH ×3 (05:53→21:26)
[2018-10-19] MEDS: Morphine 2 MG/ML SYRINGE SLOW IVP PRN ×2 (05:54→19:25)
[2018-10-19] MEDS: FLUoxetine HCl 20 MG CAP PO SCH (08:25)
--- NOTE | 2018-10-19 10:56 | PDOC.PN ---
- Subjective Encounter Start Date: 10/19/18 (f/u acute cholecystitis) Encounter Start Time: 10:54 Subjective: Pt denies any complaints, states he feels tired this morning. -: Denies n/v/abd pain/cp/sob - Objective Vital Signs & Weight: Vital Signs (12 hours) Temp Pulse Resp BP Pulse Ox 10/19/18 08:00 94 L 10/19/18 07:36 97.5 F L 77 20 124/73 94 L 10/19/18 04:34 98 F 69 16 90/56 L 94 L 10/18/18 23:36 98.8 F 78 95 H 120/95 H Weight Weight 244 lb 15.995 oz I&O: 10/18/18 10/19/18 10/20/18 06:59 06:59 06:59 Intake Total 1460 Output Total 595 30 Balance 865 -30 Result Diagrams: 10/19/18 04:41 10/19/18 04:41 Phys Exam - Physical Examination Constitutional: NAD Respiratory: no wheezing, no rales, no rhonchi Cardiovascular: RRR, no significant murmur Gastrointestinal: soft, non-tender, positive bowel sounds trace pitting edema bilateral Neurological: non-focal Psychiatric: normal affect Deviation from normal: tired appearing Dx/Plan (1) Cholecystitis Code(s): K81.9 - CHOLECYSTITIS, UNSPECIFIED Status: Acute (2) Depression Code(s): F32.9 - MAJOR DEPRESSIVE DISORDER, SINGLE EPISODE, UNSPECIFIED Status : Chronic Qualifiers: Depression Type: unspecified Qualified Code(s): F32.9 - Major depressive disorder, single episode, unspecified (3) PTSD (post-traumatic stress disorder) Code(s): F43.10 - POST-TRAUMATIC STRESS DISORDER, UNSPECIFIED Status: Chronic (4) Abnormal LFTs Code(s): R79.89 - OTHER SPECIFIED ABNORMAL FINDINGS OF BLOOD CHEMISTRY Status : Chronic (5) Cirrhosis Code(s): K74.60 - UNSPECIFIED CIRRHOSIS OF LIVER Status: Chronic Qualifiers: Hepatic cirrhosis type: unspecified hepatic cirrhosis (6) Chronic hepatitis C Code(s): B18.2 - CHRONIC VIRAL HEPATITIS C Status: Chronic (7) Hyponatremia Code(s): E87.1 - HYPO-OSMOLALITY AND HYPONATREMIA Status: Chronic (8) Thrombocytopenia Code(s): D69.6 - THROMBOCYTOPENIA, UNSPECIFIED Status: Chronic - Plan * Appreciate Gen Surg and GI consults * continue meropenem * ID consult for antibiotic type and duration * Continue home meds to manage mood d/o and insomnia * Hyponatremia stable * monitor platelets - thrombocytopenia improved * d/c IVF * * dvt prophy - scd's, ambulatory * gi prophy - d/c as pt is not on this at home * * pt remains at high risk in current condition * case management for social/living situation
--- NOTE | 2018-10-19 11:04 | PRG ---
DATE OF SERVICE: 10/19/2018 SUBJECTIVE: Mr. Hairston is doing pretty well. He had some pain at the cholecystostomy tube site earlier, but the pain is now well controlled. He is tolerating his normal diet with no nausea or vomiting. He has been afebrile. OBJECTIVE: VITAL SIGNS: Temperature 97.5, pulse 77, blood pressure 124/73, 94% oxygen saturation on room air. GENERAL: No acute distress. HEART: Regular rate and rhythm. LUNGS: Clear to auscultation bilaterally. ABDOMEN: Soft, nontender to palpation. Cholecystostomy tube is in place with some cloudy fluid in the tubing. EXTREMITIES: No peripheral edema. LABORATORY STUDIES: Sodium 131, potassium 3.6, BUN 10, creatinine 0.55. WBC down to 4.9, hemoglobin 14.1, platelets 125. ASSESSMENT AND PLAN: 1. Acute cholecystitis, now status post percutaneous cholecystostomy tube placement yesterday morning. The patient remains on meropenem. I see that Infectious Disease consultation has been requested. Clinically, the patient has improved. 2. Cirrhosis, secondary to hepatitis C and prior alcohol abuse. Cirrhosis is otherwise stable. The patient is going to completely abstain from alcohol going forward. Plan is to reestablish care with Dr. Carty in the GI Clinic for his cirrhosis and hepatitis C genotype 1a, following hospital discharge. GI will sign off, but please call back anytime with questions or concerns. Job ID: [id number]
--- NOTE | 2018-10-19 16:14 | PDOC.GSPN ---
Surgery Progress Note: Subj - Subjective Narrative: Patient is feeling good today. His abdominal pain has resolved. No fevers or chills. White cells on Gram stain of his bile, and rare growth on early subculture. Identification and sensitivities are still pending. Abdominal exam is benign with only a small amount of tenderness around the drain site. Drainage is clear bilious and decreased in amount. He is still worried about his discharge plan. Case management has not been by to see him yet. Assessment/plan: Doing well overall from the standpoint of his cholecystitis. Asymptomatic with cholecystostomy tube in place. He can go home with this and return to the clinic for follow-up. Culture results are still pending. I ordered LFTs to make sure that his bilirubin is coming down since the drain placement. If this is still trending up then further investigation may be needed. Case management has been consulted to help with discharge planning. Patient is currently basically homeless and came to the hospital from inpatient psychiatry unit on [facility]. Surgery Progress Note: Obj - Vital signs Vital signs: Vital Signs - Most Recent Temp Pulse Resp BP Pulse Ox 98.1 F 77 18 118/63 95 10/19/18 15:32 10/19/18 15:32 10/19/18 15:32 10/19/18 15:32 10/19/18 15:32 Surgery Progress Note: Results - Labs Result Diagrams: 10/19/18 04:41 10/19/18 04:41 Lab results: Laboratory Results - last 24 hr 10/19/18 10/19/18 04:41 04:41 WBC 4.9 RBC 4.23 L Hgb 14.1 Hct 37.9 L MCV 89.6 MCH 33.3 H MCHC 37.2 H RDW 16.0 H Plt Count 125 L MPV 7.7 Neutrophils % 54.3 Lymphocytes % 28.5 Monocytes % 14.0 H Eosinophils % 2.7 Basophils % 0.5 Neutrophils # 2.7 Lymphocytes # 1.4 Monocytes # 0.7 H Eosinophils # 0.1 Basophils # 0.0 Hypochromia MODERATE=16-30 cells H Plt Morphology Comment Appears Decreased L Sodium 131 L Potassium 3.6 Chloride 108 H Carbon Dioxide 20 L Anion Gap 7 L BUN 10 Creatinine 0.55 L Estimated GFR (MDRD) Greater than 90 Glucose 97 Calcium 7.5 L
[2018-10-19 16:27] LABS: ALT (SGPT) 25 U/L (8-55); AST (SGOT) 31 U/L (5-34); Albumin 2.2 g/dL (3.4-4.8); Alkaline Phosphatase 89 U/L (40-150); Anion Gap 9 mmol/L (10-20); BUN (Urea Nitrogen) 13 mg/dL (8.4-25.7); Bilirubin, Total 2.7 mg/dL (0.2-1.2); Calc. Creatinine Clearance 192 mL/min (70-130); Calcium 7.6 mg/dL (7.8-10.44); Carbon Dioxide 19 mmol/L (23-31); Chloride 109 mmol/L (98-107); Estimated GFR-MDRD Greater than 90; Globulin 3.4 g/dL (2.4-3.5); Glucose 148 mg/dL (80-115); Potassium 3.6 mmol/L (3.5-5.1); Protein, Total 5.6 g/dL (5.8-8.1); Sodium 133 mmol/L (136-145)
[2018-10-20 04:39] LABS: #Eosinphils 0.1 thou/uL (0.0-0.7); #Monocytes 0.4 thou/uL (0.11-0.59); #Neutrophils 1.4 thou/uL (1.40-6.50); %Basophils 1.2 % (0.0-1.0); %Eosinophils 3.6 % (0.0-10.0); %Lymphocytes 34.7 % (21.0-51.0); %Monocytes 12.1 % (0.0-10.0); %Neutrophils 48.4 % (42.0-75.0); Mean Corpuscular Hemoglobin 29.9 pg (27.0-31.0); Mean Corpuscular Volume 90.5 fL (78.0-98.0); Mean Platelet Volume 7.3 fL (7.4-10.4); Platelet Count 77 thou/uL (130-400); RBC Distribution Width 15.7 % (11.5-14.5); Red Blood Cell (RBC) Count 4.69 mill/uL (4.70-6.10); White Blood Cell (WBC) Count 2.9 thou/uL (4.8-10.8)
[2018-10-20 04:58] LABS: Anion Gap 7 mmol/L (10-20); BUN (Urea Nitrogen) 10 mg/dL (8.4-25.7); Calc. Creatinine Clearance 195 mL/min (70-130); Calcium 7.6 mg/dL (7.8-10.44); Carbon Dioxide 21 mmol/L (23-31); Chloride 108 mmol/L (98-107); Estimated GFR-MDRD Greater than 90; Glucose 102 mg/dL (80-115); Potassium 3.7 mmol/L (3.5-5.1); Sodium 132 mmol/L (136-145)
[2018-10-20 05:02] LABS: ALT (SGPT) 26 U/L (8-55); AST (SGOT) 36 U/L (5-34); Albumin 2.3 g/dL (3.4-4.8); Alkaline Phosphatase 96 U/L (40-150); Bilirubin, Direct 1.6 mg/dL (0.1-0.3); Bilirubin, Total 2.7 mg/dL (0.2-1.2); Protein, Total 5.9 g/dL (5.8-8.1)
[2018-10-20] MEDS: MEROPENEM 1 GM/50 ML 1 GM in Premix Bag 1 BAG IVPB SCH ×3 (06:01→21:21)
[2018-10-20] MEDS: traMADol HCl 50 MG TAB PO PRN (08:09)
[2018-10-20] MEDS: FLUoxetine HCl 20 MG CAP PO SCH (08:10)
[2018-10-20] MEDS: Morphine 2 MG/ML SYRINGE SLOW IVP PRN ×2 (08:10→20:20)
--- NOTE | 2018-10-20 16:33 | CON ---
DATE OF CONSULTATION: 10/20/2018 REASON FOR CONSULTATION: Liver cirrhosis, cholecystitis, managed with cholecystostomy, and questions regarding antimicrobial management. HISTORY OF PRESENT ILLNESS: A 62-year-old gentleman, whom I had seen in 2016. At that time, he presented with a history of chronic hepatitis C never treated, liver cirrhosis, and chronic smoking, whom I saw in 2017 for left foot cellulitis. He did have an abscess at that time as well. This has resolved after treatment and now he was brought in because of abdominal pain, this was localized to the right upper quadrant and epigastrium, quite intense, radiating to the right lower quadrant. He did not have any headaches. No documented fever or chills. No nausea, vomiting, or diarrhea. No genitourinary symptoms. Last drank alcoholic beverage before October 09 and had been sober for the past seven months. No back pain. No appendicular structure symptoms. The patient had a cholecystostomy and we have 2 organisms retrieved as shown below. Currently, he appears in no distress, pleasant. Denies headaches. No visual symptoms, sore throat, odynophagia, or dysphagia. No respiratory symptoms. The abdominal pain has improved. He is able to void without difficulty. No diarrhea. PAST MEDICAL HISTORY: Chronic hep C untreated, liver cirrhosis, alcoholism, portal hypertension with gastropathy, depression, and PTSD. PAST SURGICAL HISTORY: Cholecystostomy just performed. ALLERGIES: NONE. FAMILY HISTORY: Noncontributory. SOCIAL HISTORY: He is from his and had been without residence. He is trying to establish residence in [place] again. He seems to have resources to do it, so does not appear that it is going to be difficult for him to find a place to stay here in town. Other social history includes continuing smoking habit. CURRENT MEDICATIONS: 1. Tylenol. 2. Tessalon. 3. Dulcolax. 4. Catapres. 5. Prozac. 6. Robitussin. 7. Apresoline. 8. Meropenem. 9. Morphine. 10. Zofran. 11. Seroquel. 12. Senokot. 13. Ultram. PHYSICAL EXAMINATION: VITAL SIGNS: T-max 98.9, currently 97.6. Other vital signs are normal and O2 saturation 96% room air. SKIN: Spider angiomata noted anterior chest. The patient is voiding by himself without any catheter. Has a peripheral IV access. No lymphadenopathy. HEENT: Ocular movements conjugate. Conjunctivae a bit pale. Oral cavity still only a two teeth stubs remaining in the oral cavity. It looks like he has a pin from the dental implant, but there is no tooth associated with it. The oral cavity mucosa otherwise is okay. LUNGS: Symmetric air entry. HEART: S1 and S2. Regular rate. ABDOMEN: With a cholecystostomy tube in the right upper quadrant, draining bilious material. Mild tenderness. Liver edge about 1 cm below costal margin. No splenomegaly. No bladder distention. No evidence of ascites. EXTREMITIES: Some osteoarthrosis in knees and ankles. Pulses 1+ in dorsalis pedis. Plantar responses are flexor. Moves all extremities equally. NEUROLOGIC: He is awake and oriented. Follows commands. Speech appears to be normal. LABORATORY DATA: White cell count of 11.3 down to 2.9, hemoglobin 14, and platelets chronically decreased from cirrhosis at 77 at this time. Differential, 48% neutrophils and 34% lymphocytes. INR 1.2. Sodium 132 and creatinine 0.6. Direct bilirubin 1.6, total bilirubin 2.7, AST 36, ALT 26, alkaline phosphatase 96, and albumin 2.3. The cholecystostomy drainage with 2200 wbc's with predominance of mature neutrophils and cultures from that fluid. Two different gram negatives yet to be fully identified, susceptibility tested. We have imaging studies starting with abdomen and pelvis CT from 2017, which showed cholelithiasis, cirrhosis, portal hypertension, and renal cyst and then, there is an abdomen ultrasound this admission with small gallstones and thick-walled edematous appearing gallbladder, likely due to acute cholecystitis. We have a chest film, which showed no infiltrates or other abnormality. The abscess drainage CT report was reviewed and this reflects a successful placement of cholecystostomy. The bile material appeared normal. ASSESSMENT AND PLAN: Alcoholism, chronic hepatitis C untreated, some psychiatric abnormalities particularly depression and PTSD, and acute cholecystitis status post cholecystostomy due to perioperative risk considerations. The patient is currently receiving meropenem and we will wait for the final identification of the organism, susceptibility profile, and see if we can switch him to an oral regimen to allow discharge planning and duration of therapy will be probably 1 to 2 weeks since a full source control is not possible at this time, we will plan to treat for a longer period of time. Eventual removal of the percutaneous drain/cholecystostomy. Job ID: [id number]
--- NOTE | 2018-10-20 19:00 | PDOC.PN ---
- Subjective Encounter Start Date: 10/20/18 (f/u cholecystitis) Encounter Start Time: 18:58 Subjective: Pt without complaints, denies any n/v. Some pain with movement of -: the area that the cholecystostomy tube is at. - Objective Vital Signs & Weight: Vital Signs (12 hours) Temp Pulse Resp BP Pulse Ox 10/20/18 15:05 97.7 F 66 18 112/71 97 10/20/18 12:00 96 10/20/18 11:04 97.6 F 68 18 100/64 96 10/20/18 08:00 96 10/20/18 07:37 97.7 F 69 16 123/76 96 Weight Weight 244 lb 15.995 oz I&O: 10/19/18 10/20/18 10/21/18 06:59 06:59 06:59 Intake Total 1460 2160 1180 Output Total 595 205 100 Balance 865 1955 1080 Result Diagrams: 10/20/18 04:20 10/20/18 04:21 Phys Exam - Physical Examination Constitutional: NAD Respiratory: no wheezing, no rales, no rhonchi, clear to auscultation bilateral Cardiovascular: RRR, no significant murmur Gastrointestinal: soft, non-tender, no distention, positive bowel sounds Musculoskeletal: no edema Neurological: non-focal, moves all 4 limbs Psychiatric: normal affect Dx/Plan (1) Cholecystitis Code(s): K81.9 - CHOLECYSTITIS, UNSPECIFIED Status: Acute (2) Depression Code(s): F32.9 - MAJOR DEPRESSIVE DISORDER, SINGLE EPISODE, UNSPECIFIED Status : Chronic Qualifiers: Depression Type: unspecified Qualified Code(s): F32.9 - Major depressive disorder, single episode, unspecified (3) PTSD (post-traumatic stress disorder) Code(s): F43.10 - POST-TRAUMATIC STRESS DISORDER, UNSPECIFIED Status: Chronic (4) Abnormal LFTs Code(s): R79.89 - OTHER SPECIFIED ABNORMAL FINDINGS OF BLOOD CHEMISTRY Status : Chronic (5) Cirrhosis Code(s): K74.60 - UNSPECIFIED CIRRHOSIS OF LIVER Status: Chronic Qualifiers: Hepatic cirrhosis type: unspecified hepatic cirrhosis (6) Chronic hepatitis C Code(s): B18.2 - CHRONIC VIRAL HEPATITIS C Status: Chronic (7) Hyponatremia Code(s): E87.1 - HYPO-OSMOLALITY AND HYPONATREMIA Status: Chronic (8) Thrombocytopenia Code(s): D69.6 - THROMBOCYTOPENIA, UNSPECIFIED Status: Chronic (9) Leukopenia Code(s): D72.819 - DECREASED WHITE BLOOD CELL COUNT, UNSPECIFIED Status: Acute - Plan * * Appreciate Gen Surg and GI consults * s/p cholecystostomy tube on meropenem * Appreciate ID consult - follow GB aspirate to determine abx * Continue home meds to manage mood d/o and insomnia * Hyponatremia stable * monitor platelets - thrombocytopenia stable * leukopenia -may be secondary to abx - monitor * * dvt prophy - scd's, ambulatory * gi prophy - not indicated * * pt remains at high risk in current condition * case management for social/living situation.
--- NOTE | 2018-10-20 19:20 | PDOC.GSPN ---
Surgery Progress Note: Subj - Subjective Narrative: Patient states that he is feeling pretty good. He denies abdominal pain. No nausea or vomiting. No fevers or chills. Right upper quadrant is very minimally tender to palpation and cholecystostomy tube drainage is bile tinged but clear. Volume of drainage appears to be going down from day to day. Cultures are growing gram-negative satiety and sensitivities are pending. Assessment/plan: Acute cholecystitis and a cirrhotic managed with cholecystostomy tube placement and antibiotics. Awaiting final cultures. Bilirubin is trending down, and the drain output appears to be diminishing as well. He can be discharged with cholecystostomy tube and follow-up in the clinic in a couple weeks. No new surgical recommendations. Surgery Progress Note: Obj - Vital signs Vital signs: Vital Signs - Most Recent Temp Pulse Resp BP Pulse Ox 97.7 F 66 18 112/71 97 10/20/18 15:05 10/20/18 15:05 10/20/18 15:05 10/20/18 15:05 10/20/18 15:05 Surgery Progress Note: Results - Labs Result Diagrams: 10/20/18 04:20 10/20/18 04:21 Lab results: Laboratory Results - last 24 hr 10/18/18 10:10 Fluid Source Fluid Tube Number 1 Fluid Color Red Fluid Clarity Cloudy/Turbid H Fluid WBC 2200 Fluid RBC (Manual) 5225 Fluid Seg Neutrophil % 95 Fluid Lymphocytes % 3 Non-Hematological % 2 Fluid Comment
[2018-10-21] MEDS: MEROPENEM 1 GM/50 ML 1 GM in Premix Bag 1 BAG IVPB SCH ×3 (05:36→21:32)
[2018-10-21 06:10] LABS: #Eosinphils 0.1 thou/uL (0.0-0.7); #Lymphocytes 0.9 thou/uL (1.20-3.40); #Monocytes 0.4 thou/uL (0.11-0.59); #Neutrophils 1.4 thou/uL (1.40-6.50); %Basophils 0.8 % (0.0-1.0); %Eosinophils 3.8 % (0.0-10.0); %Lymphocytes 32.6 % (21.0-51.0); %Neutrophils 48.7 % (42.0-75.0); Mean Corpuscular HGB CONC 33.5 g/dL (32.0-36.0); Mean Corpuscular Hemoglobin 29.8 pg (27.0-31.0); Mean Platelet Volume 7.4 fL (7.4-10.4); Platelet Count 88 thou/uL (130-400); RBC Distribution Width 15.7 % (11.5-14.5); Red Blood Cell (RBC) Count 4.69 mill/uL (4.70-6.10); White Blood Cell (WBC) Count 2.9 thou/uL (4.8-10.8)
[2018-10-21 06:25] LABS: Anion Gap 9 mmol/L (10-20); BUN (Urea Nitrogen) 12 mg/dL (8.4-25.7); Calc. Creatinine Clearance 209 mL/min (70-130); Calcium 7.5 mg/dL (7.8-10.44); Carbon Dioxide 19 mmol/L (23-31); Chloride 108 mmol/L (98-107); Estimated GFR-MDRD Greater than 90; Glucose 91 mg/dL (80-115); Potassium 3.6 mmol/L (3.5-5.1); Sodium 132 mmol/L (136-145)
[2018-10-21] MEDS: FLUoxetine HCl 20 MG CAP PO SCH (08:21)
[2018-10-21] MEDS: Morphine 2 MG/ML SYRINGE SLOW IVP PRN ×3 (08:21→21:32)
--- NOTE | 2018-10-21 15:52 | PQF ---
CLINICAL DOCUMENTATION IMPROVEMENT CLARIFICATION FORM: ICD-10 Updated PLEASE DO AN ADDENDUM TO THE PROGRESS NOTE WITH ANY DOCUMENTATION UPDATES OR ADDITIONS AND CARRY THROUGH TO DC SUMMARY. THANK YOU. DATE: 10/21/2018 ATTN: Dr. Jenn Hillman Please exercise your independent, professional judgment in responding to the clarification form. Clinical indicators are provided on the bottom of this form for your review Please check appropriate box(s): Major depressive disorder, single episode. Severity: [ ] Mild [ ] Moderate [ xx ] Severe, without psychotic symptoms. - presumed diagnosis based on patient was hospitalized at [facility] for depression and ptsd. [ ] Severe with psychotic features [ ] Other specified. [ ] Other diagnosis [ ] Unable to determine In addition, please specify: Present on Admission (POA): [ XX ] Yes [ ] No [ ] Unable to determine For continuity of documentation, please document condition throughout progress notes and discharge summary. Thank You. CLINICAL INDICATORS - SIGNS / SYMPTOMS / LABS 10/17 (Case) The pt has a severe depression and is actually at the psychiatric facility at this time following recent suicide attempt. 10/18-10/20: Major depressive disorder, single episode, unspecified. Chronic RISKS: H&P 10/17: Currently admitted at [facility], was brought into the ER with abd. pain. Hx of PTSD. HX of depression and recent suicidal ideation. Hx of alcohol abuse, currently abstinent. TREATMENT: MAR: Order 10/18: Seroquel 150mg PO HS MAR: Order 10/18: Prozac 20 mg PO Daily Thank you, Maureen (This form is maintained as a part of the permanent medical record) 2015 [employer]. All Rights Reserved Maureen White RN, BSN [email or web address] Office: [phone] [facility]
--- NOTE | 2018-10-21 19:24 | PDOC.PN ---
- Objective Vital Signs & Weight: Vital Signs (12 hours) Temp Pulse Resp BP Pulse Ox 10/21/18 15:00 98.3 F 70 18 137/87 99 10/21/18 11:06 98 F 66 16 131/80 98 Weight Weight 244 lb 15.995 oz I&O: 10/20/18 10/21/18 10/22/18 06:59 06:59 06:59 Intake Total 2160 1761 1700 Output Total 205 165 65 Balance 1955 1596 1635 Result Diagrams: 10/21/18 05:48 10/21/18 05:48 Phys Exam - Physical Examination Gastrointestinal: positive bowel sounds Dx/Plan (1) Cholecystitis Code(s): K81.9 - CHOLECYSTITIS, UNSPECIFIED Status: Acute (2) Depression Code(s): F32.9 - MAJOR DEPRESSIVE DISORDER, SINGLE EPISODE, UNSPECIFIED Status : Chronic Qualifiers: Depression Type: major depressive disorder Major depression episode severity: severe Psychotic features: without psychotic features (3) PTSD (post-traumatic stress disorder) Code(s): F43.10 - POST-TRAUMATIC STRESS DISORDER, UNSPECIFIED Status: Chronic (4) Abnormal LFTs Code(s): R79.89 - OTHER SPECIFIED ABNORMAL FINDINGS OF BLOOD CHEMISTRY Status : Chronic (5) Cirrhosis Code(s): K74.60 - UNSPECIFIED CIRRHOSIS OF LIVER Status: Chronic Qualifiers: Hepatic cirrhosis type: unspecified hepatic cirrhosis (6) Chronic hepatitis C Code(s): B18.2 - CHRONIC VIRAL HEPATITIS C Status: Chronic (7) Hyponatremia Code(s): E87.1 - HYPO-OSMOLALITY AND HYPONATREMIA Status: Chronic (8) Thrombocytopenia Code(s): D69.6 - THROMBOCYTOPENIA, UNSPECIFIED Status: Chronic (9) Leukopenia Code(s): D72.819 - DECREASED WHITE BLOOD CELL COUNT, UNSPECIFIED Status: Acute Qualifiers: Neutropenia type: unspecified
--- NOTE | 2018-10-21 20:54 | PRG ---
DATE OF SERVICE: 10/21/2018 SUBJECTIVE: Mr. Hairston feels good today. Minimal pain. Abdomen is benign. Bilious drainage from his cholecystostomy tube, but output is trending down. From a surgical standpoint, he can be discharged home on oral antibiotics and follow up in the General Surgery Clinic in a few weeks for imaging and removal of cholecystostomy tube. Job ID: [id number]
--- NOTE | 2018-10-21 21:44 | PDOC.PN ---
- Subjective Encounter Start Date: 10/21/18 (f/u acute cholecystitis) Encounter Start Time: 16:30 Subjective: Pt c/o pain - both related to cholecystostomy tube as well -: as chronic pain which he has been on multiple medications for -: in the past. Denies n/v/cp/dyspnea - Objective Vital Signs & Weight: Vital Signs (12 hours) Temp Pulse Resp BP Pulse Ox 10/21/18 15:00 98.3 F 70 18 137/87 99 10/21/18 11:06 98 F 66 16 131/80 98 Weight Weight 244 lb 15.995 oz I&O: 10/20/18 10/21/18 10/22/18 06:59 06:59 06:59 Intake Total 2160 1761 1751 Output Total 205 165 65 Balance 1954 1596 1686 Result Diagrams: 10/21/18 05:48 10/21/18 05:48 Phys Exam - Physical Examination Constitutional: NAD Respiratory: no wheezing, no rales, no rhonchi, clear to auscultation bilateral Cardiovascular: RRR, no significant murmur Gastrointestinal: soft, non-tender, no distention, positive bowel sounds cholecystostomy tube draining clear yellow fluid Neurological: non-focal, moves all 4 limbs Psychiatric: normal affect Dx/Plan (1) Cholecystitis Code(s): K81.9 - CHOLECYSTITIS, UNSPECIFIED Status: Acute (2) Depression Code(s): F32.9 - MAJOR DEPRESSIVE DISORDER, SINGLE EPISODE, UNSPECIFIED Status : Chronic Qualifiers: Depression Type: major depressive disorder Major depression episode severity: severe Psychotic features: without psychotic features (3) PTSD (post-traumatic stress disorder) Code(s): F43.10 - POST-TRAUMATIC STRESS DISORDER, UNSPECIFIED Status: Chronic (4) Abnormal LFTs Code(s): R79.89 - OTHER SPECIFIED ABNORMAL FINDINGS OF BLOOD CHEMISTRY Status : Chronic (5) Cirrhosis Code(s): K74.60 - UNSPECIFIED CIRRHOSIS OF LIVER Status: Chronic Qualifiers: Hepatic cirrhosis type: unspecified hepatic cirrhosis (6) Chronic hepatitis C Code(s): B18.2 - CHRONIC VIRAL HEPATITIS C Status: Chronic (7) Hyponatremia Code(s): E87.1 - HYPO-OSMOLALITY AND HYPONATREMIA Status: Chronic (8) Thrombocytopenia Code(s): D69.6 - THROMBOCYTOPENIA, UNSPECIFIED Status: Chronic (9) Leukopenia Code(s): D72.819 - DECREASED WHITE BLOOD CELL COUNT, UNSPECIFIED Status: Acute Qualifiers: Neutropenia type: unspecified - Plan * * Appreciate Gen Surg and GI consults * s/p cholecystostomy tube on meropenem * Appreciate ID consult - awaiting recommendations based on tube aspirate - Enterobacter cloacae * Continue home meds to manage mood d/o and insomnia * Hyponatremia stable * Cirrhosis - * monitor platelets - thrombocytopenia stable * leukopenia -may be secondary to abx - monitor * Needs f/u with GI * pt asking about pain medications - has chronic pain and has been on multiple meds in the past. He is requesting long acting morphine or methadone - discussed it is not safe with his liver function. Discussed nsaids are not recommended including aspirin. He will benefit from evaluation of a paint tester as an outpatient. * * dvt prophy - scd's, ambulatory * gi prophy - not indicated * * pt remains at high risk in current condition * Anticipate ready for discharge once antibiotics determined.
[2018-10-22] MEDS: Morphine 2 MG/ML SYRINGE SLOW IVP PRN ×5 (05:40→20:51)
[2018-10-22] MEDS: MEROPENEM 1 GM/50 ML 1 GM in Premix Bag 1 BAG IVPB SCH ×2 (05:42→14:51)
[2018-10-22] MEDS: FLUoxetine HCl 20 MG CAP PO SCH (08:47)
--- NOTE | 2018-10-22 16:59 | PDOC.PN ---
- Subjective Encounter Start Date: 10/22/18 (f/u cholecystitis) Encounter Start Time: 16:00 Subjective: Pt feeling well. Denies any complaints or concerns. Up and ambulating -: without difficulty - Objective Vital Signs & Weight: Vital Signs (12 hours) Temp Pulse Resp BP Pulse Ox 10/22/18 15:46 98.0 F 64 20 128/78 96 10/22/18 11:09 98.1 F 63 16 84/51 L 94 L 10/22/18 08:00 96 10/22/18 07:53 97.7 F 69 16 126/77 96 Weight Weight 244 lb 15.995 oz I&O: 10/21/18 10/22/18 10/23/18 06:59 06:59 06:59 Intake Total 1761 2231 Output Total 165 135 40 Balance 1596 2096 -40 Result Diagrams: 10/21/18 05:48 10/21/18 05:48 Phys Exam - Physical Examination Constitutional: NAD Respiratory: no wheezing, no rales, no rhonchi, clear to auscultation bilateral Cardiovascular: RRR, no significant murmur Gastrointestinal: soft, non-tender, no distention, positive bowel sounds thin/yellow fluid draining from cholecystostomy tube Musculoskeletal: no edema Neurological: non-focal, moves all 4 limbs Psychiatric: normal affect Dx/Plan (1) Cholecystitis Code(s): K81.9 - CHOLECYSTITIS, UNSPECIFIED Status: Acute (2) Depression Code(s): F32.9 - MAJOR DEPRESSIVE DISORDER, SINGLE EPISODE, UNSPECIFIED Status : Chronic Qualifiers: Depression Type: major depressive disorder Major depression episode severity: severe Psychotic features: without psychotic features (3) PTSD (post-traumatic stress disorder) Code(s): F43.10 - POST-TRAUMATIC STRESS DISORDER, UNSPECIFIED Status: Chronic (4) Abnormal LFTs Code(s): R79.89 - OTHER SPECIFIED ABNORMAL FINDINGS OF BLOOD CHEMISTRY Status : Chronic (5) Cirrhosis Code(s): K74.60 - UNSPECIFIED CIRRHOSIS OF LIVER Status: Chronic Qualifiers: Hepatic cirrhosis type: unspecified hepatic cirrhosis (6) Chronic hepatitis C Code(s): B18.2 - CHRONIC VIRAL HEPATITIS C Status: Chronic (7) Hyponatremia Code(s): E87.1 - HYPO-OSMOLALITY AND HYPONATREMIA Status: Chronic (8) Thrombocytopenia Code(s): D69.6 - THROMBOCYTOPENIA, UNSPECIFIED Status: Chronic (9) Leukopenia Code(s): D72.819 - DECREASED WHITE BLOOD CELL COUNT, UNSPECIFIED Status: Acute Qualifiers: Neutropenia type: unspecified - Plan 62 y/o male admitted for cholecystitis, placed on meropenem and evaluated by Gen Surgery - tx with cholecystostomy tube. He has responded very well. Cirrhosis and other co-morbid conditions have been stable. * Appreciate Gen Surg and GI consults * s/p cholecystostomy tube - to f/u with Dr. See in the outpatient setting for imaging and determination of duration of cholecystostomy tube * Appreciate ID consult - change to ciprofloxacin 500 mg BID x 2 weeks * Continue home meds to manage mood d/o and insomnia - this appears stable. Pt was sent here from [facility] and was hospitalized there due to SI. Will need to ensure safety at discharge * Hyponatremia stable * Cirrhosis - * thrombocytopenia stable * low albumin * leukopenia -may be secondary to abx - stable * Needs f/u with GI/Dr. Carty Hep C - f/u with either Dr. Og or Dr. Carty for consideration of tx * pt asking about pain medications yesterday - discussed with liver dysfunction that long-acting pain meds are not considered safe. Recommend that he be evaluated by a pain management clinic as an outpatient. Will need a rx for tramadol at discharge * * Social stressors - pt homeless currently - case making machine operator working with him to identify resources * * dvt prophy - scd's, ambulatory * gi prophy - not indicated * * anticipate discharge tomorrow.
[2018-10-23] MEDS ORDERED: Ciprofloxacin 500 MG TAB PO SCH (06:00)
[2018-10-23] MEDS: traMADol HCl 50 MG TAB PO PRN (07:37)
[2018-10-23] MEDS: FLUoxetine HCl 20 MG CAP PO SCH (07:39)
--- NOTE | 2018-10-23 11:59 | DIS ---
DATE OF ADMISSION: 10/17/2018 DATE OF DISCHARGE: 10/23/2018 PRIMARY CARE PROVIDER: Magdaleno Dunn MD FINAL DIAGNOSES: Acute cholecystitis, chronic hepatitis C, chronic thrombocytopenia, posttraumatic stress disorder. DISCHARGE MEDICATIONS: 1. Seroquel 150 mg a day. 2. Prozac 20 mg a day. 3. Tramadol 50 mg p.o. q.6 hours for pain. 4. Cipro 500 mg p.o. b.i.d. for 2 weeks. CODE STATUS: Full. ALLERGIES: NONE. DIET: Regular. PENDING AT TIME OF DISCHARGE: Nothing. CONSULTATIONS: 1. Dr. Santana Burleson, Gastroenterology. 2. Dr. Martin See, General Surgery. 3. Dr. Isma Og, Infectious Disease. HOSPITAL COURSE: The patient was referred to [facility] by [facility] after transfer from [facility]. He has abdominal pain. The patient was found to have acute cholecystitis. He was started on IV antibiotics, IV fluids, kept n.p.o. Initial laboratory; sodium 130, potassium 3.8, BUN 10, creatinine 0.6, glucose 123, bilirubin 4.6, AST 43, ALT 35. White cell count 11.3, hemoglobin 15.8, platelet count 91,000. The patient underwent a percutaneous cholecystostomy on 10/17/2018. The patient's cultures from his gallbladder aspirate did draw Enterobacter cloacae, which is sensitive to ciprofloxacin. He is being discharged on oral ciprofloxacin for 2 weeks. The patient has done well postoperatively. At the time of discharge, the patient still had a cholecystostomy tube to be managed at followup. His liver function test demonstrated a trending down of his bilirubin from a high of 6.6 to 2.7. The patient has outpatient appointments with Dr. Martin See in 14 days, Dr. Og in 14 days, Dr. Enio Carty. He is going home with the cholecystostomy tube. He has been instructed on care. Prescriptions have been written. Currently today, vital signs are stable. Afebrile. Chest is clear. Heart has a regular rate and rhythm. Abdomen is soft. Site around the cholecystostomy tube is clean. 35 minutes spent preparing this discharge on Mr. Hairston. Job ID: [id number]
[2018-10-23 15:28] VITALS: BP 143/85; TEMP 97.9
== END 2018-10-23 15:28 | disposition home or self-care (01) | DRG 445 ==
LOC: ERS 11:37 → SJJU 14:56
PROVIDERS: ADMIT Internal Medicine; ATTEND Internal Medicine
PROC: 0T9B30Z Drainage of Bladder with Drainage Device, Percutaneous Approach (ICD-10-PCS; principal; 2018-10-17)
DX: K81.0 Acute cholecystitis (principal); E87.1 Hypo-osmolality and hyponatremia; F32.2 Major depressive disorder, single episode, severe without psychotic features; B18.2 Chronic viral hepatitis C; D69.6 Thrombocytopenia, unspecified; F43.10 Post-traumatic stress disorder, unspecified; K74.60 Unspecified cirrhosis of liver; D72.819 Decreased white blood cell count, unspecified; G47.00 Insomnia, unspecified; F10.20 Alcohol dependence, uncomplicated
CPT/HCPCS: 36415; 49020; 76705; 77002; 80048; 80053; 80076; 83690; 85025; 85060; 85610; 85730; 87070; 87077; 87186; 87205; 89051; 96374; 96375; C1729; C9113; J1885; J2185; J2250; J2270; J3010

== ENCOUNTER 2018-11-01 13:11 | Emergency (ER) | payer MEDICARE ==
[~2018-11-01 13:11] MED LIST: ISOVUE-370 76%-LOCM 1 ML ONE
[2018-11-01 13:42] LABS: #Basophils 0.1 thou/uL (0.0-0.2); #Eosinphils 0.3 thou/uL (0.0-0.7); #Lymphocytes 1.3 thou/uL (1.20-3.40); #Monocytes 0.7 thou/uL (0.11-0.59); #Neutrophils 2.5 thou/uL (1.40-6.50); %Basophils 1.6 % (0.0-1.0); %Eosinophils 6.9 % (0.0-10.0); %Lymphocytes 26.5 % (21.0-51.0); %Monocytes 13.4 % (0.0-10.0); %Neutrophils 51.5 % (42.0-75.0); Hemoglobin 15.4 g/dL (14.0-18.0); Mean Corpuscular HGB CONC 34.5 g/dL (32.0-36.0); Mean Corpuscular Hemoglobin 30.4 pg (27.0-31.0); Mean Platelet Volume 7.4 fL (7.4-10.4); Platelet Count 131 thou/uL (130-400); Red Blood Cell (RBC) Count 5.08 mill/uL (4.70-6.10); White Blood Cell (WBC) Count 4.8 thou/uL (4.8-10.8)
[2018-11-01 14:01] LABS: ALT (SGPT) 29 U/L (8-55); AST (SGOT) 41 U/L (5-34); Albumin 2.7 g/dL (3.4-4.8); Alkaline Phosphatase 118 U/L (40-150); Anion Gap 11 mmol/L (10-20); BUN (Urea Nitrogen) 8 mg/dL (8.4-25.7); Bilirubin, Total 2.2 mg/dL (0.2-1.2); Calc. Creatinine Clearance 0 mL/min (70-130); Calcium 8.2 mg/dL (7.8-10.44); Carbon Dioxide 20 mmol/L (23-31); Chloride 110 mmol/L (98-107); Estimated GFR-MDRD Greater than 90; Globulin 4.1 g/dL (2.4-3.5); Glucose 108 mg/dL (80-115); Lipase 26 U/L (8-78); Potassium 3.3 mmol/L (3.5-5.1); Protein, Total 6.8 g/dL (5.8-8.1); Sodium 138 mmol/L (136-145)
--- NOTE | 2018-11-01 14:23 | RAD ---
PORTABLE CHEST 1 VIEW: Date: 11/01/18 Time: 1342 hours HISTORY: Abdominal pain. FINDINGS: Comparison made with exam of 10/08/18. The heart size is normal. The aorta is tortuous. The lungs are well expanded without lobar consolidat ion, pneumothoraces, or pleural effusions. IMPRESSION: No acute process. POS: [facility]KO
[2018-11-01 14:54] LABS: Bacteria/HPF None Seen HPF (None Seen); Bilirubin 1+ (Negative); Blood, Urine 2+ (Negative); Clarity Turbid (Clear); Glucose, Urine (Dipstick) Normal (Negative); Leukocyte Negative Leu/uL (Negative); Mucous/LPF 1+ LPF (<2+); Nitrite Negative (Negative); Protein, Urine (Dipstick) 10 mg/dL (Neg-Trace); Squamous Epithelial None Seen HPF (0-3); Urobilinogen 12 mg/dL (Less than 2)
[2018-11-01 14:58] LABS: Calcium Oxalate Crystals 4+ HPF (None Seen); Yeast-Budding None Seen HPF (None Seen)
[2018-11-01 14:59] LABS: Sperm/HPF None Seen HPF (None Seen); WBC/HPF 0-3 HPF (0-3)
--- NOTE | 2018-11-01 14:59 | CT ---
CT OF THE ABDOMEN AND PELVIS WITH IV CONTRAST INDICATION: 62-year-old male with complications related to drainage catheter and clogged drain COMPARISON: CT peritoneal abscess drainage exam dated 10/18/[address] of the abdomen and pelvis date d 01/21/2017 FINDINGS: ABDOMEN: Lung bases: Clear Liver: Cirrhotic morphology of the liver. Stable 9 mm hypodensity within the left hepatic lobe Gallbladder: There is a percutaneous cholecystostomy tube in place within the gallbladder body. The gallbladder is decompressed. There are numerous gallstones within the gallbladder. Pancreas: Normal. Adrenal glands: Normal. Spleen: Enlarged measuring 18 cm. There are numerous splenic varicosities. Kidneys: Small renal hypodensities, too small to characterize. No hydronephrosis. Retroperitoneum of the upper abdomen: No lymphadenopathy or free fluid is identified. Pelvis: Small and large bowel: Thousand normal caliber. There is a normal appendix in the right lower quadran t of the abdomen. Bladder: Partially decompressed Rectal and perirectal soft tissues:Normal. Reproductive structures: Normal. Free fluid in pelvis: No free fluid is evident. Lymphadenopathy pelvis: No lymphadenopathy is evident. Osseous structures: No acute fracture or subluxation demonstrated. There is diffuse osteopenia There is scattered degenerative and osteoarthritic changes. IMPRESSION: 1. Percutaneous cholecystostomy tube situated within the gallbladder lumen in a decompressed gallblad torin with associated gallstones. 2. Stable cirrhosis and findings of portal hypertension. The 9 mm hypodensity within left hepatic lob e is unchanged from a comparison in 2017.
[2018-11-01] MEDS ORDERED: Ciprofloxacin 500 MG TAB ONE (15:12)
== END 2018-11-01 15:25 | disposition home or self-care (01) ==
LOC: ERS 13:11
DX: R10.9 Unspecified abdominal pain (principal); F32.9 Major depressive disorder, single episode, unspecified; F17.210 Nicotine dependence, cigarettes, uncomplicated; Z79.899 Other long term (current) drug therapy
CPT/HCPCS: 36415; 71045; 74177; 80053; 81003; 81015; 83605; 83690; 85025; 87040; 93005; Q9966

== ENCOUNTER 2018-12-08 22:04 | Inpatient (IN) | payer MEDICARE ==
[2018-12-08 22:59] LABS: #Basophils 0.1 thou/uL (0.0-0.2); #Eosinphils 0.4 thou/uL (0.0-0.7); #Lymphocytes 1.6 thou/uL (1.20-3.40); #Monocytes 0.6 thou/uL (0.11-0.59); #Neutrophils 1.8 thou/uL (1.40-6.50); %Basophils 1.4 % (0.0-1.0); %Eosinophils 8.2 % (0.0-10.0); %Lymphocytes 35.4 % (21.0-51.0); %Monocytes 13.4 % (0.0-10.0); %Neutrophils 41.6 % (42.0-75.0); Hemoglobin 14.1 g/dL (14.0-18.0); Mean Corpuscular Hemoglobin 32.3 pg (27.0-31.0); Mean Corpuscular Volume 89.9 fL (78.0-98.0); Mean Platelet Volume 6.6 fL (7.4-10.4); Platelet Count 156 thou/uL (130-400); Red Blood Cell (RBC) Count 4.35 mill/uL (4.70-6.10); White Blood Cell (WBC) Count 4.4 thou/uL (4.8-10.8)
--- NOTE | 2018-12-08 23:00 | RAD ---
PORTABLE CHEST ONE VIEW: Date: 12-08-18 Time: 10:43 p.m. History: Dizziness, confusion, had cholecystectomy on 12-01-18. FINDINGS/IMPRESSION: Comparison is made with exam of 11-01-18. The heart size is normal. The aorta is tortuous. There is an infiltrate at the right lung base with a small right pleural effusion. No pneumothoraces are seen. POS: [facility]
[2018-12-08 23:17] LABS: ALT (SGPT) 29 U/L (8-55); AST (SGOT) 60 U/L (5-34); Albumin 2.6 g/dL (3.4-4.8); Alkaline Phosphatase 93 U/L (40-150); Anion Gap 9 mmol/L (10-20); BUN (Urea Nitrogen) 7 mg/dL (8.4-25.7); Bilirubin, Total 2.8 mg/dL (0.2-1.2); Calc. Creatinine Clearance 0 mL/min (70-130); Calcium 7.8 mg/dL (7.8-10.44); Carbon Dioxide 22 mmol/L (23-31); Chloride 105 mmol/L (98-107); Estimated GFR-MDRD Greater than 90; Globulin 3.5 g/dL (2.4-3.5); Glucose 106 mg/dL (80-115); Magnesium 1.8 mg/dL (1.6-2.6); Potassium 3.2 mmol/L (3.5-5.1); Protein, Total 6.1 g/dL (5.8-8.1); Sodium 133 mmol/L (136-145)
--- NOTE | 2018-12-08 23:46 | ULT ---
VENOUS DOPPLER ULTRASOUND RIGHT LOWER EXTREMITY: History: Right lower extremity pain and edema. Technique: Grayscale, color, and spectral doppler imaging of the deep venous system of the right lowe r extremity was performed. FINDINGS: There is absence of compression and minimal flow due to thrombosis in the deep venous system of the r ight lower extremity from the common femoral to the tibial vein in the mid calf. IMPRESSION: Findings are consistent with DVT in the right lower extremity. Discussed over the telephone with Emergency Department physician, Dr. Bismark Lopes at 11:49 p.m. POS: [facility]
[2018-12-09 00:16] LABS: Actual Bicarbonate (HCO3a) 24.5 mEq/L (22-28); Analyzer IN Cardio ER; Base Excess (BEa) 2.1 mEq/L (-2.0 to +3.0); CO2 Tension 31.7 mmHg (35.0-45.0); Calcium, Ionized 1.08 mmol/L (1.12-1.30); Carboxyhemoglobin (COHb) 1.4 gm% (0.0-3.0); Hemoglobin (Hb) 14.3 g/dL (14.0-18.0); O2 Tension (PaO2) 67.6 mmHg (> 80.0); Potassium - ABG Lab 2.93 mmol/L (3.70-5.30); pH, Arterial 7.51 (7.35-7.45)
[2018-12-09 00:18] LABS: ALV-art Gradient 42.505 (0-20); Puncture Site LRA
[2018-12-09] MEDS ORDERED: Enoxaparin Sodium 100 MG/ML SYRINGE ONE (02:24)
[2018-12-09] MEDS ORDERED: Enoxaparin Sodium 30 MG/0.3 ML SYRINGE ONE (02:24)
[2018-12-09] MEDS ORDERED: Enoxaparin Sodium 60 MG/0.6 ML SYRINGE ONE (02:46)
[2018-12-09] MEDS ORDERED: Piperacillin/Tazobactam 4.5 GM VIAL ONE (03:05)
[2018-12-09 04:51] VITALS: BMI 36.8
--- NOTE | 2018-12-09 08:52 | CT ---
PRELIMINARY REPORT/[facility]/EMERGENCY AFTER HOURS PROCEDURE: EXAM: CT Head Without Contrast EXAM DATE/TIME: 12/09/2018 1:12 AM CLINICAL HISTORY: 63 years old, male; Patient HX: 63 y/o m presents to ED C/O dizziness and confusion S/P gb cholecysto stomy removal on 12/01. PT states since that time, he has become increasingly dizzy and confused TECHNIQUE: Imaging protocol: Computed tomography of the head without contrast. COMPARISON: No relevant prior studies available. FINDINGS: Brain: There is no evidence for acute stroke or bleed. There is global and diffuse parenchymal volume loss. There are scattered foci of decreased attenuation in the periventricular and subcortical white matter , nonspecific, but most consistent with chronic small vessel ischemic changes in patient of this age. 10 mm remote lacunar infarct vs prominent perivascular space, left basal ganglion. Ventricles / cisterns / extra-axial spaces: There is no hydrocephalus, midline shift, or acute extra-axial fluid collection. There is no sulcal e ffacement. Sinuses: No findings of acute sinusitis. 2.3 cm right maxillary retention cyst vs polyp. Bone: No acute fracture or displacement. Impression: Chronic changes without evidence for acute, intracranial pathology. Thank you for allowing us to participate in the care of your patient. Dictated and Authenticated by: Coco Bautista MD 12/09/2018 1:48 AM Central Time ([place] & [place]) FINAL REPORT CT HEAD: Date: 12/09/18 HISTORY: Dizziness and confusion. FINDINGS: This report is in agreement with the preliminary report given by Ravi. There is polypoid mucosal thic kening within the maxillary sinus on the right. There is no displaced calvarial fracture. No intracra nial hemorrhage, midline shift, or mass effect. Mild cerebral volume loss. Periventricular hypodensit y suggests a mild degree of small vessel disease. Incidental note is made of a choroidal fissure cyst on the left. IMPRESSION: Findings suggesting small vessel disease. No intracranial hemorrhage. POS: OFF
--- NOTE | 2018-12-09 08:53 | CT ---
PRELIMINARY REPORT/[facility]/EMERGENCY AFTER HOURS PROCEDURE: EXAM: CT Angiography Chest With Contrast EXAM DATE/TIME: 12/09/2018 1:19 AM CLINICAL HISTORY: 63 years old, male; Shortness of breath; Patient HX: 63 y/o m presents to ED C/O dizziness and confus ion S/P gb cholecystostomy removal on 12/01. PT states since that time, he has become increasingly diz zy and confused TECHNIQUE: Imaging protocol: Computed tomographic angiography of the chest with intravenous contrast. 3D renderi ng: MIP reconstructed images were created and reviewed. COMPARISON: No relevant prior studies available. FINDINGS: Pulmonary arteries: No pulmonary emboli. Aorta: No aortic aneurysm. No aortic dissection. Lungs: Right basilar consolidation consistent with atelectasis vs infiltrate. Coarse left upper lobe subpleural infiltrate. Pleural space: Moderate right pleural effusion. No pneumothorax. Heart: No cardiomegaly. No pericardial effusion. Lymph nodes: Unremarkable. No enlarged lymph nodes. Bones/joints: Chronic degenerative spinal changes without acute fracture or dislocation. Soft tissues: Unremarkable. Upper abdomen: Cirrhotic liver. Splenomegaly, partially visualized. IMPRESSION: Moderate right pleural effusion. Right basilar consolidation consistent with atelectasis vs infiltrate. Coarse left upper lobe subpleural infiltrate. Thank you for allowing us to participate in the care of your patient. Dictated and Authenticated by: Coco Bautista MD 12/09/2018 2:01 AM Central Time ([place] & [place]) FINAL REPORT CT ANGIO CHEST PERFORMED WITH IV CONTRAST ENHANCEMENT WITH 3D RECONSTRUCTIONS: Date: 12/08/18 HISTORY: Shortness of breath. FINDINGS: There is a large right pleural effusion with parenchymal changes in the right base, most suggestive o f atelectasis. There is more of an interstitial infiltrative appearing change in the left upper lobe. There is some subsegmental atelectasis in the right base. There is suboptimal pulmonary artery opacification. I see no definite CT evidence for central pulmona ry embolus. Thoracic aorta is normal in caliber. Liver shows a cirrhotic pattern with splenomegaly. IMPRESSION: 1. Large right pleural effusion with right lower lobe atelectasis. 2. Some minimal interstitial infiltrate in the left upper lobe. 3. Suboptimal pulmonary artery opacification, but no CT evidence for any central pulmonary embolus. 4. Cirrhotic liver with splenomegaly. This report is in agreement with the preliminary report issued by [facility]. POS: OFF
[2018-12-09] MEDS ORDERED: Multivitamins, Adult 10 ML, Thiamine HCl 100 MG, Folic Acid 1 MG in Dextrose 5 %-0.45 %... IV SCH (09:00)
[2018-12-09] MEDS ORDERED: Labetalol HCl 100 MG/20 ML VIAL SLOW IVP PRN (10:15)
[2018-12-09] MEDS ORDERED: Senokot S 8.6-50 MG TAB PO PRN (10:15)
--- NOTE | 2018-12-09 10:47 | HP ---
PRIMARY CARE PHYSICIAN: Magdaleno Dunn MD. CHIEF COMPLAINT: Generalized weakness with dizziness of 1-week duration. HISTORY OF PRESENT ILLNESS: The patient is a 63-year-old white male with cirrhosis with recent acute cholecystitis, status post cholecystostomy drainage, presented to the emergency room with above complaints. Last week, he was discharged from [facility]. Next day, he was seen by Dr. See and cholecystostomy tube was removed. He has been feeling generally weak and fatigued over the last 1 week. He also has intermittent cough along with wheezing. The cough is essentially dry. He also has shortness of breath on [id number] exertion. He also noticed right lower extremity swelling over the last 1 week. No injuries, erythema, or significant tenderness in right lower extremity reported. No fever or chills. He denies recent immobilization or travel. PAST MEDICAL HISTORY: 1. Chronic hepatitis C. 2. Cirrhosis secondary to hepatitis C and chronic alcoholism. 3. Portal gastropathy. 4. Depression. 5. PTSD. 6. Recent acute cholecystitis, status post cholecystostomy drainage. PAST SURGICAL HISTORY: Cholecystostomy tube. ALLERGIES: NO KNOWN DRUG ALLERGIES. MEDICATIONS: Current home mediations, Seroquel 150 mg at bedtime. SOCIAL HISTORY: He continues to smoke up to half pack a day. He has a history of alcoholism. He denies significant alcohol use recently. He denies current use of drugs. FAMILY HISTORY: Negative for heart disease. REVIEW OF SYSTEMS: All other review of systems was reviewed and was found negative. PHYSICAL EXAMINATION: VITAL SIGNS: Temperature 98.3, respirations 20, pulse rate of 92, blood pressure of 128/77, and O2 saturation 96% on room air. GENERAL: A 63-year-old male, in no significant distress while at rest. HEENT: Head, atraumatic and normocephalic. Sclerae anicteric. Moist mucous membrane. No oral lesion. NECK: Supple. No JVD. No carotid bruit. LUNGS: Showed diminished air entry at the bases, right more than left, with scattered rales mainly in the right mid zone. HEART: S1 and S2 present. Regular rate and rhythm. No rubs or gallops. ABDOMEN: Soft and obese. Bowel sounds present. No rebound or guarding. EXTREMITIES: No edema or calf tenderness in left lower extremity. Right lower extremity with significant swelling with mild tenderness on palpation. SKIN: Warm and dry. LYMPH NODES: No palpable lymph nodes in the neck. PERIPHERAL VASCULAR: Radial pulses palpable bilaterally. MUSCULOSKELETAL: No joint swelling or tenderness. LABORATORY FINDINGS: WBC 4.4, hemoglobin 14.1, hematocrit 39.1, and platelets 156. ABG showed pH of 7.51, pCO2 31.7, pO2 67.6, and bicarbonate of 24.5. Chemistry showed sodium 133, potassium 3.2, chloride 105, bicarb 22, BUN of 7, and creatinine 0.67. Total bilirubin 2.8 with AST of 60 and ALT of 29. Troponin of 0.012. BNP was negative. Recent coagulation profile showed prothrombin time of 15 with INR 1.2. IMAGING STUDIES: CT angiogram of the chest was negative for pulmonary embolism. It was a suboptimal study. It showed large right pleural effusion with right lower lobe atelectasis with minimal interstitial infiltrate in the left upper lobe. It also showed cirrhosis of the liver with splenomegaly. CT scan of the head by my review showed chronic small-vessel changes. Right lower extremity Doppler was positive for DVT. Chest x-ray by my review showed right-sided pleural effusion with pneumonia. IMPRESSION: 1. Generalized weakness, multifactorial. 2. Healthcare-associated pneumonia, suspected gram negatives. 3. Large right-sided pleural effusion. 4. Right lower extremity deep venous thrombosis. 5. History of recurrent falls. 6. History of depression with suicidal attempts in the past with recent hospitalization at [facility]. The patient denies any suicidal ideation at this time. 7. History of cirrhosis with portal hypertension and splenomegaly. 8. Posttraumatic stress disorder. 9. Chronic hepatitis C with cirrhosis. 10. Coagulopathy secondary to cirrhosis. 11. Recent acute cholecystitis, status post cholecystostomy drainage. 12. Hyponatremia/hypokalemia. 13. History of thrombocytopenia last admission. 14. Obesity with a BMI of 36.8. PLAN: The patient will be monitored on the medical floor. We will continue empiric antibiotics. He received 1 dose of Lovenox 1 mg/kg in the emergency room at 2:20 a.m. today. I think due to history of cirrhosis and recurrent falls, he is at high risk of complications from anticoagulation. He also has a history of medication noncompliance. We will consult Dr. Ryder for assistance with pleural effusion and pneumonia. Replace electrolytes. Recheck labs in a.m. We will consider IVC filter. Resume home dose of Seroquel. He has also not followed up with GI for surveillance EGD. Plan was discussed with the patient in detail and he stated understanding. Job ID: [id number]
[2018-12-09] MEDS: Piperacillin/Tazobactam 3.375 GM in Sodium Chloride 0.9% 100 ML IVPB SCH ×3 (11:12→22:52)
[2018-12-09] MEDS: Vancomycin HCl 1 GM in Premix Bag 1 BAG IVPB SCH (16:28)
[2018-12-09] MEDS ORDERED: predniSONE 20 MG TAB PO SCH (19:45)
[2018-12-09] MEDS ORDERED: Potassium Chloride 20 MEQ TAB PO SCH (19:45)
[2018-12-09 20:06] LABS: Pleural Fluid, Protein 2.9 g/dL
[2018-12-09 20:15] LABS: RBC Count-Automated (BF) 5951 /cumm; WBC/Nucleated-Auto (BF) 1173 uL
[2018-12-09 20:26] LABS: BF Color Yellow; Body Fluid Source Thoracentesis Fluid; Clarity Cloudy/Turbid (Clear); Tube # EDTA
[2018-12-09 20:29] LABS: Eosinophils 47 %
[2018-12-09 20:30] LABS: BF Segmented Neutrophils 2 %; Cell Count Non Hematic 42 %; Lymphocytes 3 %
--- NOTE | 2018-12-09 20:46 | OP ---
DATE OF PROCEDURE: 12/09/2018 SERVICE: Pulmonary Medicine. PROCEDURE PERFORMED: Right-sided pleural drainage with catheter insertion under ultrasound guidance. CONSENT: Risks and benefits of the procedure were explained to the patient. All questions were answered and alternative options explained. STAFF PHYSICIAN: Morteza Ryder MD MEDICATIONS USED: Lidocaine 1% without epinephrine, 8 mL. PREOPERATIVE DIAGNOSES: 1. Healthcare-associated pneumonia. 2. Pleural effusion. POSTOPERATIVE DIAGNOSES: 1. Healthcare-associated pneumonia. 2. Pleural effusion. DESCRIPTION OF PROCEDURE: Time-out was performed by the procedure team and the patient. The patient was positively identified using name and date of . The procedure site was marked. Vital sign monitoring was accomplished by noninvasive hemodynamic monitoring, pulse oximetry, and telemetry. In the seated position, the right posterior hemothorax was examined using ultrasound probe. The diaphragm and pleural fluid were easily identified. The skin was prepped and draped in sterile fashion and anesthetized with 1% lidocaine without epinephrine. A finder needle was inserted in the pleural space with return of cloudy yellow fluid. A pleural drainage catheter was inserted in the same location. A total of 1.1 L of emily colored minimally cloudy fluid was withdrawn by syringe pump technique. A sample was sent for analysis. Evacuation of fluid was terminated because the fluid stopped coming abruptly. At the end of the procedure, estimated pleural pressure, measured by manometry, was -20 cm of pleural fluid. The intact catheter was withdrawn on exhalation, and a sterile dressing was applied. The patient had stable vitals throughout the entire procedure. ESTIMATED BLOOD LOSS: 2 mL. COMPLICATIONS: None. Job ID: [id number]
--- NOTE | 2018-12-10 02:18 | CON ---
DATE OF CONSULTATION: 12/09/2018 SERVICE: Pulmonary Medicine. REASON FOR CONSULTATION: Pleural effusion. HISTORY OF PRESENT ILLNESS: The patient is a 63-year-old white male with past medical history significant for cirrhosis who presents to the hospital after recently being treated for pneumonia at a different facility. Ultimately, at our facility, a CT of the chest was performed demonstrating a possible infiltrate versus just simple atelectasis and appeared a parapneumonic effusion. He is not having significant difficulties with his breathing. He is coughing and bringing up a little bit of white to pale yellow phlegm. He did not have any significant events overnight. He has no hot or red swollen joints, rashes, diarrhea, nausea, or vomiting. In the emergency department, he was given broad-spectrum antibiotics. He has had multiple rounds of antibiotics directed at respiratory issues in the last 6 months. PAST MEDICAL HISTORY: 1. Chronic hepatitis C. 2. Cirrhosis. 3. Portal gastropathy. 4. Major depressive disorder. 5. PTSD. PAST SURGICAL HISTORY: Percutaneous cholecystostomy tube and subsequent removal. SOCIAL HISTORY: He smokes half pack on a daily basis. He has about a 50 pack- year history of smoking. He has a history of alcohol abuse and alcoholism, but does not use any here recently. He has been from his domestic partner for over 6 months. Denies any illicit drugs. He has no exposure to chemicals, dust, asbestos, or tuberculosis. FAMILY HISTORY: Noncontributory. ALLERGIES: NO KNOWN DRUG ALLERGIES. MEDICATIONS: List of his inpatient medications was reviewed. No specific updates were made at this time. REVIEW OF SYSTEMS: General, head, ears, eyes, nose, throat, cardiovascular, respiratory, GI, , musculoskeletal, neurologic, and skin is negative except as mentioned is the HPI. PHYSICAL EXAMINATION: VITAL SIGNS: Afebrile, pulse 63, blood pressure 116/78, respirations 20, and saturation 95% on room air. GENERAL: The patient is awake and alert, in no apparent distress. LUNGS: Decent air entry on the left. There is mildly prolonged expiratory phase without any polyphonic wheezing. There is decreased air entry at the right base with dullness to percussion there. HEART: Normal rate. Regular. ABDOMEN: Soft, nontender, nondistended. Bowel sounds are positive. MUSCULOSKELETAL: No cyanosis or clubbing. There is 2+ pitting in the bilateral lower extremities. NEUROLOGIC: Grossly nonfocal. LABORATORY DATA: WBC 4.4, hemoglobin 14.1, platelets 156,000. PH 7.51, pCO2 32 , PO2 68. Sodium 133, potassium 3.2. Liver function studies are unremarkable. Troponin, and BNP are unremarkable. IMAGING DATA: 1. CTA of the chest demonstrates no evidence of a pulmonary embolism. There is a right-sided pleural effusion, which is [id number] in size. It appears to be simple in layering, though there is one area which may be in the fissure that could represent some degree of loculation. There is atelectasis in the right base. There is minimal air bronchograms present, so an actual pneumonia cannot be entirely excluded. There is a ground-glass opacification of the left upper lobe. No evidence of pulmonary embolism is appreciated. There is a cirrhotic contour to the liver with splenomegaly. 2. CT of the brain demonstrates no acute intracranial abnormality. 3. Ultrasound of the leg demonstrates findings consistent with DVT. 4. Chest x-ray demonstrates right basilar infiltrate versus effusion. ASSESSMENT: 1. Healthcare-associated pneumonia, possible. 2. Right-sided pleural effusion. 3. Deep vein thrombosis. 4. Chronic obstructive pulmonary disease, suspected, with mild exacerbation. 5. Cirrhosis. DISCUSSION AND PLAN: We will perform a thoracentesis for diagnostic purposes primarily. I will send some fluid down for analysis to help us characterize this. We will continue these empiric antibiotics for the time being. He would benefit from an outpatient lung evaluation to determine whether or not he has anything there that limits his activity. He likely has some degree of chronic obstructive lung disease and may benefit from a long-acting inhaler. I will put him on a brief, 5 day course of steroids and schedule nebulized medications. 70 minutes have been devoted to this patient in various activities. I personally reviewed all imaging studies and laboratory data noted within this document. For fifty percent of this time, I was interacting with the patient at the bedside or coordinating care with the care team. For the remainder of the time I was immediately available to the patient in the hospital unit. Job ID: [id number] MTDD
[2018-12-10] MEDS: Piperacillin/Tazobactam 3.375 GM in Sodium Chloride 0.9% 100 ML IVPB SCH ×4 (04:05→22:24)
[2018-12-10] MEDS: Vancomycin HCl 1 GM in Premix Bag 1 BAG IVPB SCH (04:45)
[2018-12-10 07:39] LABS: ALT (SGPT) 26 U/L (8-55); AST (SGOT) 52 U/L (5-34); Albumin 2.2 g/dL (3.4-4.8); Alkaline Phosphatase 81 U/L (40-150); Anion Gap 9 mmol/L (10-20); BUN (Urea Nitrogen) 6 mg/dL (8.4-25.7); Bilirubin, Total 2.1 mg/dL (0.2-1.2); Calc. Creatinine Clearance 210 mL/min (70-130); Calcium 7.7 mg/dL (7.8-10.44); Carbon Dioxide 19 mmol/L (23-31); Chloride 112 mmol/L (98-107); Estimated GFR-MDRD Greater than 90; Globulin 3.3 g/dL (2.4-3.5); Glucose 155 mg/dL (80-115); Magnesium 1.9 mg/dL (1.6-2.6); Potassium 4.1 mmol/L (3.5-5.1); Protein, Total 5.5 g/dL (5.8-8.1); Sodium 136 mmol/L (136-145)
[2018-12-10 08:37] LABS: #Lymphocytes 0.4 thou/uL (1.20-3.40); #Monocytes 0.1 thou/uL (0.11-0.59); #Neutrophils 1.9 thou/uL (1.40-6.50); %Eosinophils 1.2 % (0.0-10.0); %Lymphocytes 16.7 % (21.0-51.0); %Monocytes 2.8 % (0.0-10.0); %Neutrophils 79.2 % (42.0-75.0); Hemoglobin 13.5 g/dL (14.0-18.0); Mean Corpuscular HGB CONC 35.3 g/dL (32.0-36.0); Mean Corpuscular Hemoglobin 31.8 pg (27.0-31.0); Mean Corpuscular Volume 89.9 fL (78.0-98.0); Mean Platelet Volume 6.8 fL (7.4-10.4); Platelet Count 114 thou/uL (130-400); Platelet Morphology Comment Appears Decreased; RBC Distribution Width 14.7 % (11.5-14.5); RBC Morphology Normal; Red Blood Cell (RBC) Count 4.24 mill/uL (4.70-6.10); White Blood Cell (WBC) Count 2.4 thou/uL (4.8-10.8)
[2018-12-10] MEDS: Multivit, Therapeutic 1 TAB PO SCH (08:48)
[2018-12-10] MEDS: Folic Acid 1 MG TAB PO SCH (08:49)
[2018-12-10] MEDS: predniSONE 20 MG TAB PO SCH (08:49)
[2018-12-10] MEDS: Thiamine 100 MG TAB PO SCH (08:49)
[2018-12-10] MEDS ORDERED: Morphine 2 MG/ML SYRINGE SLOW IVP SCH (09:00)
[2018-12-10] MEDS ORDERED: Diabetic Tussin 200 MG/10 ML UDCUP PO PRN (10:53)
[2018-12-10 15:18] LABS: Vancomycin, Trough 8.3 ug/mL
[2018-12-10] MEDS: Vancomycin HCl 1.5 GM in Sodium Chloride 0.9% 250 ML 300 ML IVPB SCH (16:05)
--- NOTE | 2018-12-10 16:39 | PRG ---
DATE OF SERVICE: 12/10/2018 SERVICE: Pulmonary medicine. INTERVAL HISTORY: The patient is actually breathing comfortably today. He denies any chest discomfort, nausea, or vomiting. Otherwise, there has been no change to his condition. I reviewed the results of the body fluid analysis with him. He understands it. Multiple laboratories are currently pending. PHYSICAL EXAMINATION: VITAL SIGNS: Afebrile, pulse 64, blood pressure 92/55, respirations 18, saturation 94%, currently on room air. GENERAL: The patient is awake and alert, in no apparent distress. LUNGS: Decent air entry. There is a slightly prolonged expiratory phase, but no wheezing today. I do not appreciate crackles or rhonchi. HEART: Normal rate and regular. ABDOMEN: Soft, nontender, nondistended. Bowel sounds are positive. MUSCULOSKELETAL: No cyanosis or clubbing. No pitting in the bilateral lower extremities. NEUROLOGIC: Grossly nonfocal. LABORATORY DATA: WBC 2.4 and downtrending, hemoglobin 13.5, platelets 114,000. Sodium and potassium are normal. Bicarb 19. Total bilirubin downtrending, AST downtrending. Liver function studies are otherwise unremarkable. Body fluid is consistent with an exudate with an eosinophilic predominance. PH and glucose are normal. Pathology is pending. No acid-fast bacilli are seen. Body fluid culture is negative to date. ASSESSMENT: 1. Healthcare-associated pneumonia, possible. 2. Pleural effusion, eosinophilic exudate. 3. Deep vein thrombosis. 4. Cirrhosis. DISCUSSION AND PLAN: We will wait on the pathology results to come back to us on the sample. In the meantime, I will continue steroids, and nebulized medications. He is on appropriate antibiotic coverage, which can be deescalated since we have not identified a source at this point. Pulmonary Critical Care will follow along. Job ID: [id number] MTDD
[2018-12-10] MEDS: HYDROcodone/Acetaminophen 5/325 mg Tablet PO PRN (18:41)
--- NOTE | 2018-12-10 21:54 | PDOC.HOSPP ---
- Subjective Encounter Date: 12/10/18 Encounter Time: 11:00 Subjective: Patient seen and examined for multiple medical issues. s/p thoracentesis. No SOB. Dry cough +. No fever or chills. No new complaints. No overnight events - Objective Vital Signs & Weight: Vital Signs (12 hours) Temp Pulse Resp BP Pulse Ox 12/10/18 19:51 97.7 F 88 16 107/64 94 L 12/10/18 19:17 84 12 97 12/10/18 16:00 98.8 F 103 H 20 108/69 95 12/10/18 11:51 97.3 F L 64 18 92/55 L 94 L Weight Weight 271 lb 9.752 oz I&O: 12/09/18 12/10/18 12/11/18 06:59 06:59 06:59 Intake Total 915 1260 2200 Output Total 675 450 Balance 240 1260 1750 Result Diagrams: 12/11/18 05:57 12/11/18 05:57 Radiology Reviewed by me: Yes (CXR - reviewed) Hospitalist ROS - Review of Systems Cardiovascular: denies: chest pain, palpitations, orthopnea, paroxysmal noc. dyspnea, edema, light headedness, other Gastrointestinal: denies: nausea, vomitting, abdominal pain, diarrhea, constipation, melena, hematochezia, other - Medication Medications: Active Medications Generic Name Dose Route Start Last Admin Trade Name Freq PRN Reason Stop Dose Admin Hydrocodone Bitart/Acetaminophen 1 tab 12/10/18 08:58 12/10/18 18:41 [place] 5/325 PO 1 tab Q4H PRN Administration Moderate Pain (4-6) Albuterol/Ipratropium 3 ml 12/10/18 01:00 12/10/18 19:17 Duoneb NEB 3 ml [id number] JOI Administration Folic Acid 1 mg 12/10/18 09:00 12/10/18 08:49 Folvite PO 1 mg DAILY JOI Administration Piperacillin Sod/Tazobactam 100 mls @ 200 mls/hr 12/09/18 11:00 12/10/18 17: 19 Sod 3.375 gm/ Sodium Chloride IVPB 100 mls Q6H JOI Administration Vancomycin HCl 1.5 gm/ Sodium 300 mls @ 200 mls/hr 12/10/18 16:00 12/10/18 16 :05 Chloride IVPB 300 mls 0400,1600 JOI Administration Multivitamins 1 tab 12/10/18 09:00 12/10/18 08:48 Theragran PO 1 tab DAILY JOI Administration Prednisone 40 mg 12/10/18 08:00 12/10/18 08:49 Prednisone PO 40 mg QAM-WM JOI Administration Quetiapine Fumarate 150 mg 12/09/18 21:00 12/10/18 20:40 Seroquel PO 150 mg HS JOI Administration Sodium Chloride 10 ml 12/09/18 10:15 12/10/18 04:05 Flush - Normal Saline IVF 10 ml PRN PRN Administration Saline Flush Thiamine HCl 100 mg 12/10/18 09:00 12/10/18 08:49 Thiamine PO 100 mg DAILY JOI Administration - Exam General Appearance: NAD Neck: supple, no JVD Heart: RRR, no gallops, no rubs Heart - other findings: no heaves/pulsations Respiratory: no wheezes, normal chest expansion, rales, rhonchi Gastrointestinal: soft, non-tender, non-distended, normal bowel sounds Extremities: 2+ LE edema (RLE) Neurological: no new deficit Psychiatric: normal affect, A&O x 3 Hosp A/P - Plan IMPRESSION: 1. Generalized weakness, multifactorial. 2. Healthcare-associated pneumonia, suspected gram negatives. 3. Large right-sided pleural effusion - s/p thoracentesis 4. Right lower extremity deep venous thrombosis - prob not a candidate for anticoag due to Cirrhosis/recurrent falls and noncompliance 5. History of recurrent falls. 6. History of depression with suicidal attempts in the past with recent hospitalization at [facility]. 7. History of cirrhosis with portal hypertension and splenomegaly. 8. Posttraumatic stress disorder. 9. Chronic hepatitis C with cirrhosis. 10. Coagulopathy secondary to cirrhosis. 11. Recent acute cholecystitis, status post cholecystostomy drainage. 12. Hyponatremia/hypokalemia. 13. History of thrombocytopenia last admission. 14. Obesity with a BMI of 36.8. PLAN: Cont IV Vancomycin/Zosyn Monitor Vancomycin level IVC filter in AM AM labs Cont Seroquel Pain control Cont other meds as above
[2018-12-11] MEDS: Vancomycin HCl 1.5 GM in Sodium Chloride 0.9% 250 ML 300 ML IVPB SCH ×2 (03:00→17:23)
[2018-12-11] MEDS: Piperacillin/Tazobactam 3.375 GM in Sodium Chloride 0.9% 100 ML IVPB SCH ×2 (05:16→12:06)
[2018-12-11 06:39] LABS: #Eosinphils 0.2 thou/uL (0.0-0.7); #Lymphocytes 0.8 thou/uL (1.20-3.40); #Monocytes 0.3 thou/uL (0.11-0.59); #Neutrophils 2.4 thou/uL (1.40-6.50); %Basophils 0.6 % (0.0-1.0); %Eosinophils 4.6 % (0.0-10.0); %Lymphocytes 22.2 % (21.0-51.0); %Monocytes 6.9 % (0.0-10.0); %Neutrophils 65.6 % (42.0-75.0); Hemoglobin 12.4 g/dL (14.0-18.0); Mean Corpuscular HGB CONC 34.2 g/dL (32.0-36.0); Mean Corpuscular Hemoglobin 31.4 pg (27.0-31.0); Mean Corpuscular Volume 91.7 fL (78.0-98.0); Platelet Count 113 thou/uL (130-400); RBC Distribution Width 15.2 % (11.5-14.5); Red Blood Cell (RBC) Count 3.94 mill/uL (4.70-6.10); White Blood Cell (WBC) Count 3.6 thou/uL (4.8-10.8)
[2018-12-11 06:56] LABS: Anion Gap 11 mmol/L (10-20); BUN (Urea Nitrogen) 9 mg/dL (8.4-25.7); Calc. Creatinine Clearance 200 mL/min (70-130); Calcium 7.7 mg/dL (7.8-10.44); Carbon Dioxide 19 mmol/L (23-31); Chloride 115 mmol/L (98-107); Estimated GFR-MDRD Greater than 90; Glucose 105 mg/dL (80-115); Potassium 3.3 mmol/L (3.5-5.1); Sodium 142 mmol/L (136-145)
--- NOTE | 2018-12-11 08:14 | ULT ---
ULTRASOUND DOPPLER DUPLEX VENOUS LEFT LOWER EXTREMITY: DATE: 12/11/2018 HISTORY: 63-year-old male. Left lower extremity edema. TECHNIQUE: Grayscale, color-flow, and spectral analysis, of major veins of left lower extremity. FINDINGS: There is demonstration of blood flow with normal compressibility, of the left common femoral, profund a femoral, greater saphenous, femoral, popliteal, and posterior tibial, veins. IMPRESSION: Negative. No deep venous thrombosis of left lower extremity.
[2018-12-11] MEDS ORDERED: Lidocaine 1% (PF) 30 ML VIAL ONE (11:05)
[2018-12-11] MEDS: Thiamine 100 MG TAB PO SCH (11:29)
[2018-12-11] MEDS: predniSONE 20 MG TAB PO SCH (11:29)
[2018-12-11] MEDS: Folic Acid 1 MG TAB PO SCH (11:29)
[2018-12-11] MEDS: Multivit, Therapeutic 1 TAB PO SCH (11:30)
[2018-12-11] MEDS: HYDROcodone/Acetaminophen 5/325 mg Tablet PO PRN ×2 (11:34→17:27)
--- NOTE | 2018-12-11 12:26 | PDOC.HOSPP ---
- Subjective Encounter Date: 12/11/18 Encounter Time: 11:30 Subjective: Patient seen and examined for DVT/Pneumonia and Pleural effusion. Refusing IVC filter. No CP or SOB. Pain controlled. No new complaints. No overnight events - Objective Vital Signs & Weight: Vital Signs (12 hours) Temp Pulse Resp BP Pulse Ox 12/11/18 08:00 97.5 F L 67 20 112/74 94 L 12/11/18 06:33 60 14 99 12/11/18 04:17 97.4 F L 66 18 113/74 97 Weight Weight 271 lb 9.752 oz I&O: 12/10/18 12/11/18 12/12/18 06:59 06:59 06:59 Intake Total 1260 3570 Output Total 450 Balance 1260 3120 Result Diagrams: 12/11/18 05:57 12/11/18 05:57 Additional Labs: Microbiology 12/09/18 19:20 Pleural fluid Direct Acid Fast Bacilli Smear - Final 12/09/18 19:20 Pleural fluid Body Fluid Culture - Preliminary 08/19/16 17:25 Venous blood - Right Arm Blood Culture - Preliminary Specimen has been received and culture in progress. No Growth to date. 08/19/16 17:11 Venous blood - Left Arm Blood Culture - Preliminary Specimen has been received and culture in progress. No Growth to date. Laboratory Tests 12/09/18 12/09/18 12/09/18 19:20 19:20 19:20 Fluid pH 7.8 Fluid WBC 1173 Fluid RBC 5951 Pleural Total Protein 2.9 Pleural LDH 479 Pleural Glucose 103 Vancomycin Trough 12/10/18 14:50 Fluid pH Fluid WBC Fluid RBC Pleural Total Protein Pleural LDH Pleural Glucose Vancomycin Trough 8.3 Radiology Reviewed by me: No (LLE - No DVT) Hospitalist ROS - Review of Systems Respiratory: denies: cough, dry, shortness of breath, hemoptysis, SOB with excertion, pleuritic pain, sputum, wheezing, other Cardiovascular: denies: chest pain, palpitations, orthopnea, paroxysmal noc. dyspnea, edema, light headedness, other Gastrointestinal: denies: nausea, vomitting, abdominal pain, diarrhea, constipation, melena, hematochezia, other - Medication Medications: Active Medications Generic Name Dose Route Start Last Admin Trade Name Freq PRN Reason Stop Dose Admin Hydrocodone Bitart/Acetaminophen 1 tab 12/10/18 08:58 12/11/18 11:34 [place] 5/325 PO 1 tab Q4H PRN Administration Moderate Pain (4-6) Albuterol/Ipratropium 3 ml 12/10/18 01:00 12/11/18 06:33 Duoneb NEB 3 ml [id number] JOI Administration Folic Acid 1 mg 12/10/18 09:00 12/11/18 11:29 Folvite PO 1 mg DAILY JOI Administration Piperacillin Sod/Tazobactam 100 mls @ 200 mls/hr 12/09/18 11:00 12/11/18 12: 06 Sod 3.375 gm/ Sodium Chloride IVPB 100 mls Q6H JIO Administration Vancomycin HCl 1.5 gm/ Sodium 300 mls @ 200 mls/hr 12/10/18 16:00 12/11/18 03 :00 Chloride IVPB 300 mls 0400,1600 JOI Administration Multivitamins 1 tab 12/10/18 09:00 12/11/18 11:30 Theragran PO 1 tab DAILY JOI Administration Pantoprazole Sodium 40 mg 12/11/18 09:00 12/11/18 11:30 Protonix PO 40 mg DAILY JOI Administration Prednisone 40 mg 12/10/18 08:00 12/11/18 11:29 Prednisone PO 40 mg QAM-WM JOI Administration Quetiapine Fumarate 150 mg 12/09/18 21:00 12/10/18 20:40 Seroquel PO 150 mg HS JOI Administration Sodium Chloride 10 ml 12/09/18 10:15 12/11/18 02:58 Flush - Normal Saline IVF 10 ml PRN PRN Administration Saline Flush Thiamine HCl 100 mg 12/10/18 09:00 12/11/18 11:29 Thiamine PO 100 mg DAILY JOI Administration - Exam General Appearance: NAD Neck: supple, no JVD Heart: RRR, no murmur, no gallops, no rubs Respiratory: CTAB, no wheezes, no rales, no ronchi Gastrointestinal: soft, non-tender, non-distended, normal bowel sounds Extremities: no cyanosis, 2+ LE edema (RLE) Neurological: no new deficit Hosp A/P - Plan IMPRESSION: 1. Generalized weakness, multifactorial. 2. Healthcare-associated pneumonia, suspected gram negatives. 3. Large right-sided pleural effusion - s/p thoracentesis 4. Right lower extremity deep venous thrombosis. 5. History of recurrent falls. 6. History of depression with suicidal attempts in the past with recent hospitalization at [facility]. 7. History of cirrhosis with portal hypertension and splenomegaly. 8. Posttraumatic stress disorder. 9. Chronic hepatitis C with cirrhosis. 10. Coagulopathy secondary to cirrhosis. 11. Recent acute cholecystitis, status post cholecystostomy drainage. 12. Hyponatremia/hypokalemia. 13. History of thrombocytopenia last admission. 14. Obesity with a BMI of 36.8. 15. Anemia/thrombocytopenia PLAN: Cont IV Atbx- Vancomycin/Zosyn - with Vancomycin level monitoring Start low dose Lovenox - Will change to Warfarin (Per Hematology rec) Consult GI prior to starting Warfarin Cont other meds as above AM labs
[2018-12-11] MEDS ORDERED: Enoxaparin Sodium 40 MG/0.4 ML SYRINGE SC SCH (12:30)
[2018-12-11] MEDS ORDERED: Apixaban 2.5 MG TAB PO SCH (12:45)
--- NOTE | 2018-12-11 16:38 | PRG ---
DATE OF SERVICE: 12/11/2018 SERVICE: Pulmonary Medicine. INTERVAL HISTORY: The patient is doing fine from respiratory standpoint. Breathing comfortably. Denies any current chest discomfort, nausea, or vomiting. He does have a DVT in the right lower extremity. There should not be any issue with him tolerating anticoagulation given that his cirrhosis is not truthfully that terribly advanced. The pathology came back on his pleural fluid and I discussed that with the patient today. PHYSICAL EXAMINATION: VITALS SIGNS: Afebrile, pulse 63, blood pressure 112/74, respirations 12, and saturation 98% on room air. GENERAL: The patient is awake and alert, in no apparent distress. LUNGS: Wonderful air entry. There is minimally prolonged expiratory phase now. Minimal wheezing is also noted. There is much improved compared to presentation. HEART: Normal rate and regular. ABDOMEN: Soft, nontender, and nondistended. Bowel sounds are positive. MUSCULOSKELETAL: No cyanosis or clubbing. No pitting in the bilateral lower extremities. NEUROLOGIC: Grossly nonfocal. LABORATORY DATA: WBC 3.6, hemoglobin 12.4 and roughly stable, and platelets 113,000. Eosinophil count is 4.6%. Potassium 3.3, chloride 115, and sodium 142. Basic metabolic profile is otherwise unremarkable. Body fluid is consistent with eosinophilic exudate. All cultures remain negative to date from the pleural broth. IMAGING STUDIES: Ultrasound of the left lower extremity demonstrates no evidence of DVT. ASSESSMENT: 1. Healthcare-associated pneumonia, possible. 2. Pleural effusion, eosinophilic exudate. 3. Deep vein thrombosis of the right lower extremity. 4. Presumed pulmonary embolism, resulting in the eosinophilic exudate. 5. Cirrhosis. DISCUSSION AND PLAN: The patient will require minimum of 6 months of anticoagulation directed at this DVT. My presumption is that he had a PE causing a pulmonary infarction. This is likely resulted in the effusion that we see. I am going to repeat a chest x-ray tomorrow morning. Assuming this is normal, he can be considered for discharge from the hospital. No organisms have been identified. Therefore, the antibiotics will be de-escalated. He will be treated for a total duration of 7 days with a fluoroquinolone. I would like to see him in the outpatient setting to clarify his underlying lung disease as I suspect he has COPD, but it has yet to be confirmed. If this is the case, he may benefit from long-acting therapy depending on the severity of that process. Potassium will be replaced. Pulmonary will follow. Job ID: [id number] MTDD
[2018-12-11] MEDS: Potassium Chloride 20 MEQ TAB PO SCH ×2 (17:20→20:33)
--- NOTE | 2018-12-11 19:20 | CON ---
DATE OF CONSULTATION: 12/11/2018 REQUESTING PHYSICIAN: Jayesh Villagran MD REASON FOR CONSULTATION: Cirrhosis, in need of anticoagulation. HISTORY OF PRESENT ILLNESS: Sridhar Hairston is a 63-year-old man with a history of cirrhosis secondary to hepatitis C and prior alcohol abuse. He was seen by my GI colleague, Dr. Carty in hospital consultation for this, back in late 2016. He was found to have hepatitis C genotype 1A. He has never really followed up for his cirrhosis. He has mild thrombocytopenia, but otherwise his cirrhosis has been fairly well compensated. There is no history of ascites or encephalopathy. His hepatitis C is untreated. The patient has a history of severe depression and has been in a psychiatric facility for several months, evidently just got out last week, following recent suicide attempt. I met him in hospital consultation in October, at which time, he was found to have acute cholecystitis. He underwent cholecystostomy tube placement, which was uncomplicated. The tube has since been removed. He has been treated in the past month for healthcare-associated pneumonia with multiple rounds of antibiotics. He appears to have developed a right pleural effusion. Upon presentation here, he was evaluated by Dr. Ryder, who performed thoracentesis. The fluid is negative for malignancy on cytology and it appears to be in eosinophilic exudate. AFB negative with culture showing no growth to-date. He has been treated with steroids, nebulizers, and antibiotics. The patient has also been found to have a right lower extremity DVT. He has refused IVC filter placement. We are consulted for recommendation regarding anticoagulation given his history of cirrhosis. One potential barrier is that the patient is essentially homeless and has had difficulty following up with appointments and adherence to therapies in the past. The patient is currently not having any abdominal pain or nausea. His appetite is normal. REVIEW OF SYSTEMS: Full review of systems including constitutional, head, eyes, ears, nose, throat, GI, , cardiovascular, respiratory, musculoskeletal, and neurologic systems are negative except as noted in the HPI. PAST MEDICAL HISTORY: Hepatitis C genotype 1A and prior alcohol abuse, abstinent for the past 8 to 9 months except for around the October 09. Cirrhosis likely secondary to hepatitis C and prior alcohol abuse, and depression, severe. PTSD, suicide attempts, healthcare-associated pneumonia, right pleural effusion, and cholecystitis in October 2018, status post cholecystostomy tube. ALLERGIES: NO KNOWN DRUG ALLERGIES. MEDICATIONS: 1. [place] p.r.n. 2. DuoNebs. 3. Folic acid. 4. Multivitamin. 5. IV Zosyn. 6. Prednisone 40 mg daily. 7. Seroquel. 8. Thiamine. 9. IV vancomycin. FAMILY HISTORY: Noncontributory. SOCIAL HISTORY: Alcohol use is rare lately. He does smoke. No drug use. PHYSICAL EXAMINATION: VITAL SIGNS: Temperature 97.5, pulse 67, blood pressure 112/74, and 94% oxygen saturation on room air. GENERAL: Obese, man, lying in bed comfortably, in no distress. SKIN: No jaundice. HEENT: Eyes, no scleral icterus. Extraocular movements intact. ENT, mucous membranes moist. No oral lesions. LYMPH: No submandibular or supraclavicular lymphadenopathy. THYROID: Nontender to palpation. HEART: Regular rate and rhythm. LUNGS: Some decreased breath sounds in the right side lower lobe. No wheezing. No crackles appreciated. ABDOMEN: He is obese, tympanitic to percussion throughout. Bowel sounds present. Soft and nontender to palpation throughout. EXTREMITIES: He has some asymmetric lower extremity edema, worse on the right than the left. NEURO: No asterixis. Cranial nerves 2 through 12 intact bilaterally. LABORATORY STUDIES: WBC 3.6, hemoglobin 12.4, and platelets 113. INR 1.2. Sodium 142, potassium 3.3, BUN 9, and creatinine 0.65. Thoracentesis fluid study showed 1173 wbc's and 5951 rbc's. This is eosinophilic infiltrate 47% eosinophils. Fluid cytologies negative for malignant cells. ASSESSMENT AND PLAN: 1. Cirrhosis, secondary to hepatitis C and prior alcohol abuse, fairly well compensated. The patient does have mild thrombocytopenia, but otherwise cirrhosis appears to be well compensated. He has had recent imaging showing no evidence of liver mass. He has not undergone EGD, but has not been interested in undergoing this for variceal screening. His hepatitis C is untreated. We will again try to set up followup with Dr. Carty in the outpatient clinic in the coming weeks. 2. Right lower extremity deep venous thrombosis. The question has arisen is to the need for anticoagulation. The patient has declined the inferior vena cava filter. I do think he probably will need anticoagulation given the burden of his right lower extremity deep venous thrombosis. Note that, his INR is nearly normal and thrombocytopenia is only mild. I see no contraindication to anticoagulation. I worry about the patient's adherence, if he were to start on Coumadin, inability to follow up for INR checks, etc. Eliquis might be a better option. That is what I would recommend if okay with Primary Service. 3. Pleural effusion. This appears to be an eosinophilic exudate. It does not appear to represent hepatic hydrothorax. Thank you for the consultation. GI will sign off, but please call back with questions or concerns. Job ID: [id number]
[2018-12-11] MEDS: Apixaban 2.5 MG TAB PO SCH (20:32)
[2018-12-11] MEDS ORDERED: Enoxaparin Sodium 60 MG/0.6 ML SYRINGE SC SCH (21:00)
[2018-12-12 07:14] LABS: Hemoglobin 13.1 g/dL (14.0-18.0); Platelet Count 95 thou/uL (130-400)
[2018-12-12 07:34] LABS: Anion Gap 7 mmol/L (10-20); BUN (Urea Nitrogen) 8 mg/dL (8.4-25.7); Calc. Creatinine Clearance 203 mL/min (70-130); Calcium 7.7 mg/dL (7.8-10.44); Carbon Dioxide 22 mmol/L (23-31); Chloride 112 mmol/L (98-107); Estimated GFR-MDRD Greater than 90; Glucose 90 mg/dL (80-115); Potassium 3.9 mmol/L (3.5-5.1); Sodium 137 mmol/L (136-145)
[2018-12-12] MEDS: Folic Acid 1 MG TAB PO SCH (09:46)
[2018-12-12] MEDS: predniSONE 20 MG TAB PO SCH (09:46)
[2018-12-12] MEDS: HYDROcodone/Acetaminophen 5/325 mg Tablet PO PRN ×2 (09:46→20:22)
[2018-12-12] MEDS: Thiamine 100 MG TAB PO SCH (09:47)
[2018-12-12] MEDS: Apixaban 2.5 MG TAB PO SCH ×2 (09:47→20:20)
[2018-12-12] MEDS: Multivit, Therapeutic 1 TAB PO SCH (09:47)
--- NOTE | 2018-12-12 11:03 | PRG ---
DATE OF SERVICE: 12/12/2018 SERVICE: Pulmonary Medicine. INTERVAL HISTORY: The patient is doing really well from respiratory standpoint. Denies any current chest discomfort, nausea, or vomiting. He has no complaints of fevers or chills. There were no significant overnight events overnight. He is certainly not bleeding anywhere. PHYSICAL EXAMINATION: VITAL SIGNS: Afebrile, pulse 61, blood pressure 137/86, respirations 20, and saturation 97% on room air. GENERAL: The patient is awake and alert, in no apparent distress. LUNGS: Very good air entry. There is no prolonged expiratory phase or wheezing present. HEART: Normal rate, regular. ABDOMEN: Soft, nontender, and nondistended. Bowel sounds are positive. MUSCULOSKELETAL: No cyanosis or clubbing. There is no pitting in the bilateral lower extremities. NEUROLOGIC: Grossly nonfocal. LABORATORY DATA: Hemoglobin 13.1, platelets 95,000. Basic metabolic profile is essentially unremarkable/improving. All cultures remain negative to date. IMAGING: Chest x-ray demonstrates small right-sided pleural effusion. This has significantly improved compared to prior. There is an increased interstitial densities throughout bilateral lung gregory, which have also slightly improved. ASSESSMENT: 1. Healthcare-associated pneumonia, possible. 2. Pleural effusion, eosinophilic exudate. 3. Deep vein thrombosis of the right lower extremity. 4. Presumed pulmonary embolism, resulting in eosinophilic exudate (poor contrast bolus on CTA of the chest prevented evaluation of distal arteries). 5. Cirrhosis. DISCUSSION AND PLAN: The patient requires 6 months of anticoagulation directed at this DVT and presumed PE before considering deescalation. He will need a repeat chest x-ray in 4 to 6 weeks in the outpatient setting to make certain that the effusion resolves. He will need a 5-day course of antibiotic and a 7-day course of Levaquin. At this point, the patient has no further requirements for inpatient Pulmonary or Critical Care opinion, and we will sign off. Since the patient is doing well and is on room air, he can be considered for discharge today. Job ID: [id number] [facility]
--- NOTE | 2018-12-12 11:13 | RAD ---
PA AND LATERAL CHEST: Date: 12/12/18 INDICATION: History of pleural effusion. COMPARISON: Prior CTA of the chest dated 12/09/18. FINDINGS: Previously, there was a large right pleural effusion, now a small right pleural effusion remains. Tin y left pleural effusion persists. Heart size is upper limits of normal. Chronic lung changes are alicia lar appearing. No consolidation is noted. IMPRESSION: Decreasing size of bilateral pleural effusions. POS: OFF
--- NOTE | 2018-12-12 15:20 | PDOC.HOSPP ---
- Subjective Encounter Date: 12/12/18 Encounter Time: 08:45 Subjective: Patient seen and examined for HCAP/DVT. No CP or SOB. No new complaints. No overnight events - Objective Vital Signs & Weight: Vital Signs (12 hours) Temp Pulse Resp BP Pulse Ox 12/12/18 13:40 61 16 97 12/12/18 07:43 97.4 F L 61 20 137/86 97 12/12/18 05:10 97.6 F 69 18 130/85 96 12/12/18 03:40 94 L Weight Weight 271 lb 9.752 oz I&O: 12/11/18 12/12/18 12/13/18 06:59 06:59 06:59 Intake Total 3570 720 690 Output Total 450 Balance 3120 720 690 Result Diagrams: 12/12/18 06:56 12/12/18 06:56 Radiology Reviewed by me: Yes (CXR - Improving effusions) Hospitalist ROS - Review of Systems Respiratory: reports: cough. denies: dry, shortness of breath, hemoptysis, SOB with excertion, pleuritic pain, sputum, wheezing, other Cardiovascular: denies: chest pain, palpitations, orthopnea, paroxysmal noc. dyspnea, edema, light headedness, other Gastrointestinal: denies: nausea, vomitting, abdominal pain, diarrhea, constipation, melena, hematochezia, other - Medication Medications: Active Medications Generic Name Dose Route Start Last Admin Trade Name Freq PRN Reason Stop Dose Admin Hydrocodone Bitart/Acetaminophen 1 tab 12/10/18 08:58 12/12/18 09:46 [place] 5/325 PO 1 tab Q4H PRN Administration Moderate Pain (4-6) Albuterol/Ipratropium 3 ml 12/10/18 01:00 12/12/18 13:40 Duoneb NEB 3 ml [id number] JOI Administration Apixaban 2.5 mg 12/11/18 21:00 12/12/18 09:47 Eliquis PO 2.5 mg BID JOI Administration Folic Acid 1 mg 12/10/18 09:00 12/12/18 09:46 Folvite PO 1 mg DAILY JOI Administration Levofloxacin 750 mg 12/12/18 06:00 12/12/18 06:29 Levaquin PO 12/16/18 06:01 750 mg 0600 JOI Administration Multivitamins 1 tab 12/10/18 09:00 12/12/18 09:47 Theragran PO 1 tab DAILY JOI Administration Pantoprazole Sodium 40 mg 12/11/18 21:00 12/12/18 09:46 Protonix PO 40 mg BID JOI Administration Prednisone 40 mg 12/10/18 08:00 12/12/18 09:46 Prednisone PO 40 mg QAM-WM JOI Administration Quetiapine Fumarate 150 mg 12/09/18 21:00 12/11/18 20:33 Seroquel PO 150 mg HS JOI Administration Sodium Chloride 10 ml 12/09/18 10:15 12/11/18 02:58 Flush - Normal Saline IVF 10 ml PRN PRN Administration Saline Flush Thiamine HCl 100 mg 12/10/18 09:00 12/12/18 09:47 Thiamine PO 100 mg DAILY JOI Administration - Exam General Appearance: NAD Heart: RRR, no gallops Respiratory: CTAB, no rales Respiratory - other findings: Dec AE at bases Extremities: 2+ LE edema Hosp A/P - Plan IMPRESSION: 1. Generalized weakness, multifactorial. 2. Healthcare-associated pneumonia, suspected gram negatives. 3. Large right-sided pleural effusion - s/p thoracentesis 4. Right lower extremity deep venous thrombosis. 5. History of recurrent falls. 6. History of depression with suicidal attempts in the past with recent hospitalization at [facility]. 7. History of cirrhosis with portal hypertension and splenomegaly. 8. Posttraumatic stress disorder. 9. Chronic hepatitis C with cirrhosis. 10. Coagulopathy secondary to cirrhosis. 11. Recent acute cholecystitis, status post cholecystostomy drainage. 12. Hyponatremia/hypokalemia. 13. History of thrombocytopenia last admission. 14. Obesity with a BMI of 36.8. 15. Anemia/thrombocytopenia PLAN: Cont Levaquin with Prednisone Tolerating low dose Eliquis Stable for discharge - Await placement Cont other meds as above
[2018-12-13] MEDS: Apixaban 2.5 MG TAB PO SCH ×2 (09:07→20:54)
[2018-12-13] MEDS: Multivit, Therapeutic 1 TAB PO SCH (09:07)
[2018-12-13] MEDS: Thiamine 100 MG TAB PO SCH (09:07)
[2018-12-13] MEDS: predniSONE 20 MG TAB PO SCH (09:07)
[2018-12-13] MEDS: Folic Acid 1 MG TAB PO SCH (09:07)
[2018-12-13] MEDS: HYDROcodone/Acetaminophen 5/325 mg Tablet PO PRN ×2 (09:19→20:56)
--- NOTE | 2018-12-13 23:50 | PDOC.HOSPP ---
- Subjective Encounter Date: 12/13/18 Encounter Time: 14:15 Subjective: Patient seen and examined for DVT/HCAP. Ambulating in hallways. No new complaints. No overnight events - Objective Vital Signs & Weight: Vital Signs (12 hours) Temp Pulse Resp BP Pulse Ox 12/13/18 20:00 96 12/13/18 19:58 97.9 F 77 20 158/92 H 96 12/13/18 16:00 97.6 F 73 20 152/87 H 97 12/13/18 13:36 97.9 F 80 20 112/69 93 L 12/13/18 13:34 70 12 Weight Weight 271 lb 9.752 oz I&O: 12/12/18 12/13/18 12/14/18 06:59 06:59 06:59 Intake Total 720 690 520 Balance 720 690 520 Result Diagrams: 12/12/18 06:56 12/12/18 06:56 Hospitalist ROS - Review of Systems Respiratory: denies: cough, dry, shortness of breath, hemoptysis, SOB with excertion, pleuritic pain, sputum, wheezing, other Cardiovascular: denies: chest pain, palpitations, orthopnea, paroxysmal noc. dyspnea, edema, light headedness, other Gastrointestinal: denies: nausea, vomitting, abdominal pain, diarrhea, constipation, melena, hematochezia, other - Medication Medications: Active Medications Generic Name Dose Route Start Last Admin Trade Name Freq PRN Reason Stop Dose Admin Hydrocodone Bitart/Acetaminophen 1 tab 12/10/18 08:58 12/13/18 20:56 [place] 5/325 PO 1 tab Q4H PRN Administration Moderate Pain (4-6) Apixaban 2.5 mg 12/11/18 21:00 12/13/18 20:54 Eliquis PO 2.5 mg BID JOI Administration Folic Acid 1 mg 12/10/18 09:00 12/13/18 09:07 Folvite PO 1 mg DAILY JOI Administration Levofloxacin 750 mg 12/12/18 06:00 12/13/18 06:25 Levaquin PO 12/16/18 06:01 750 mg 0600 JOI Administration Multivitamins 1 tab 12/10/18 09:00 12/13/18 09:07 Theragran PO 1 tab DAILY JOI Administration Pantoprazole Sodium 40 mg 12/11/18 21:00 12/13/18 20:54 Protonix PO 40 mg BID JOI Administration Prednisone 40 mg 12/10/18 08:00 12/13/18 09:07 Prednisone PO 40 mg QAM-WM JOI Administration Quetiapine Fumarate 150 mg 12/09/18 21:00 12/13/18 20:54 Seroquel PO 150 mg HS JOI Administration Sodium Chloride 10 ml 12/09/18 10:15 12/11/18 02:58 Flush - Normal Saline IVF 10 ml PRN PRN Administration Saline Flush Thiamine HCl 100 mg 12/10/18 09:00 12/13/18 09:07 Thiamine PO 100 mg DAILY JOI Administration - Exam General Appearance: NAD Neck: supple, no JVD Heart: RRR, no rubs Respiratory: CTAB, no wheezes, no ronchi Gastrointestinal: soft, non-tender, normal bowel sounds Extremities: no edema Hosp A/P - Plan IMPRESSION: 1. Generalized weakness, multifactorial. 2. Healthcare-associated pneumonia, suspected gram negatives. 3. Large right-sided pleural effusion - s/p thoracentesis 4. Right lower extremity deep venous thrombosis - on Eliquis 5. History of recurrent falls. 6. History of depression with suicidal attempts in the past with recent hospitalization at [facility]. 7. History of cirrhosis with portal hypertension and splenomegaly. 8. Posttraumatic stress disorder. 9. Chronic hepatitis C with cirrhosis. 10. Coagulopathy secondary to cirrhosis. 11. Recent acute cholecystitis, status post cholecystostomy drainage. 12. Hyponatremia/hypokalemia. 13. History of thrombocytopenia last admission. 14. Obesity with a BMI of 36.8. 15. Anemia/thrombocytopenia PLAN: Cont Eliquis Cont Levaquin with Prednisone Stable for discharge - Await placement Cont other meds as above
[2018-12-14] MEDS ORDERED: Artificial Tears 18 DROP/0.9 ML EA EYE PRN (08:23)
[2018-12-14] MEDS ORDERED: Bisacodyl 10 MG SUPP PR PRN (08:23)
[2018-12-14] MEDS ORDERED: Zolpidem Tartrate 5 MG TAB PO PRN (08:23)
[2018-12-14] MEDS ORDERED: Metoclopramide HCl 10 MG/2 ML VIAL IVP PRN (08:23)
[2018-12-14] MEDS ORDERED: Cepastat Lozenges 1 LOZ PO PRN (08:23)
[2018-12-14] MEDS ORDERED: Sodium Chloride 0.65% Nasal 44 ML BOT EA NARE PRN (08:23)
[2018-12-14] MEDS ORDERED: Loratadine 10 MG TAB PO PRN (08:23)
[2018-12-14] MEDS ORDERED: Loperamide HCl 2 MG CAP PO PRN (08:23)
[2018-12-14 08:26] LABS: Hemoglobin 14.9 g/dL (14.0-18.0); Platelet Count 107 thou/uL (130-400)
[2018-12-14] MEDS: predniSONE 20 MG TAB PO SCH (09:53)
[2018-12-14] MEDS: Apixaban 2.5 MG TAB PO SCH ×2 (09:53→20:26)
[2018-12-14] MEDS: Thiamine 100 MG TAB PO SCH (09:54)
[2018-12-14] MEDS: Folic Acid 1 MG TAB PO SCH (09:54)
[2018-12-14] MEDS: Multivit, Therapeutic 1 TAB PO SCH (09:54)
--- NOTE | 2018-12-14 12:38 | PDOC.HOSPP ---
- Subjective Encounter Date: 12/14/18 Encounter Time: 10:45 Subjective: Patient seen and examined. No new complaints. No overnight events - Objective Vital Signs & Weight: Vital Signs (12 hours) Temp Pulse Resp BP Pulse Ox 12/14/18 12:23 97.6 F 63 20 132/84 93 L 12/14/18 08:06 97.5 F L 69 18 130/82 96 12/14/18 08:00 96 Weight Weight 271 lb 9.752 oz I&O: 12/13/18 12/14/18 12/15/18 06:59 06:59 06:59 Intake Total 690 970 Balance 690 970 Result Diagrams: 12/14/18 07:49 12/12/18 06:56 Hospitalist ROS - Review of Systems ENT: denies: ear pain, ear discharge, nose pain, nose discharge, nose congestion , mouth pain, mouth swelling, throat pain, throat swelling, other Respiratory: denies: cough, dry, shortness of breath, hemoptysis, SOB with excertion, pleuritic pain, sputum, wheezing, other Cardiovascular: denies: chest pain, palpitations, orthopnea, paroxysmal noc. dyspnea, edema, light headedness, other Gastrointestinal: denies: nausea, vomitting, abdominal pain, diarrhea, constipation, melena, hematochezia, other Genitourinary: denies: dysuria, frequency, incontinence, hematuria, retention, other Musculoskeletal: denies: neck pain, shoulder pain, arm pain, back pain, hand pain, leg pain, foot pain, other - Medication Medications: Active Medications Generic Name Dose Route Start Last Admin Trade Name Shmuelq PRN Reason Stop Dose Admin Hydrocodone Bitart/Acetaminophen 1 tab 12/10/18 08:58 12/13/18 20:56 [place] 5/325 PO 1 tab Q4H PRN Administration Moderate Pain (4-6) Apixaban 2.5 mg 12/11/18 21:00 12/14/18 09:53 Eliquis PO 2.5 mg BID JOI Administration Folic Acid 1 mg 12/10/18 09:00 12/14/18 09:54 Folvite PO 1 mg DAILY JOI Administration Levofloxacin 750 mg 12/12/18 06:00 12/14/18 06:16 Levaquin PO 12/16/18 06:01 750 mg 0600 JOI Administration Multivitamins 1 tab 12/10/18 09:00 12/14/18 09:54 Theragran PO 1 tab DAILY JOI Administration Pantoprazole Sodium 40 mg 12/11/18 21:00 12/14/18 09:53 Protonix PO 40 mg BID JOI Administration Prednisone 40 mg 12/10/18 08:00 12/14/18 09:53 Prednisone PO 40 mg QAM-WM JOI Administration Quetiapine Fumarate 150 mg 12/09/18 21:00 12/13/18 20:54 Seroquel PO 150 mg HS JOI Administration Sodium Chloride 10 ml 12/09/18 10:15 12/11/18 02:58 Flush - Normal Saline IVF 10 ml PRN PRN Administration Saline Flush Thiamine HCl 100 mg 12/10/18 09:00 12/14/18 09:54 Thiamine PO 100 mg DAILY JOI Administration - Exam General Appearance: NAD, awake alert Eye: PERRL, anicteric sclera ENT: normocephalic atraumatic, no oropharyngeal lesions Neck: supple, symmetric, no JVD Heart: RRR, no murmur, no gallops, no rubs Respiratory: CTAB, no wheezes, no rales Gastrointestinal: soft, non-tender, non-distended, normal bowel sounds Extremities: no cyanosis, no clubbing, no edema Skin: normal turgor, no lesions Neurological: CN's grossly intact, no focal deficits Musculoskeletal: normal tone, normal strength Psychiatric: normal affect, normal behavior Hosp A/P (1) Deep vein thrombosis (DVT) of right lower extremity Code(s): I82.401 - ACUTE EMBOLISM AND THOMBOS UNSP DEEP VEINS OF R LOW EXTREM Status: Acute (2) Pleural effusion Code(s): J90 - PLEURAL EFFUSION, NOT ELSEWHERE CLASSIFIED Status: Acute (3) Chronic hepatitis C Code(s): B18.2 - CHRONIC VIRAL HEPATITIS C Status: Chronic (4) Cirrhosis Code(s): K74.60 - UNSPECIFIED CIRRHOSIS OF LIVER Status: Chronic Qualifiers: Hepatic cirrhosis type: unspecified hepatic cirrhosis (5) Depression Code(s): F32.9 - MAJOR DEPRESSIVE DISORDER, SINGLE EPISODE, UNSPECIFIED Status : Chronic Qualifiers: Depression Type: major depressive disorder Major depression episode severity: severe Psychotic features: without psychotic features (6) Obesity (BMI 30-39.9) Code(s): E66.9 - OBESITY, UNSPECIFIED Status: Chronic (7) PTSD (post-traumatic stress disorder) Code(s): F43.10 - POST-TRAUMATIC STRESS DISORDER, UNSPECIFIED Status: Chronic (8) Thrombocytopenia Code(s): D69.6 - THROMBOCYTOPENIA, UNSPECIFIED Status: Chronic (9) Tobacco dependence Code(s): F17.200 - NICOTINE DEPENDENCE, UNSPECIFIED, UNCOMPLICATED Status: Chronic - Plan old records reviewed/req pt is medically stable continue elliquis continue levaquin and prednisone as per pulmonary for pneumonia pt is walking around unit, and reports that he is weak he reports that he has no place to go and wants help medication reviewed as above symptomatic treatment
[2018-12-14] MEDS: HYDROcodone/Acetaminophen 5/325 mg Tablet PO PRN (20:26)
[2018-12-15] MEDS: Apixaban 2.5 MG TAB PO SCH ×2 (08:04→20:26)
[2018-12-15] MEDS: Multivit, Therapeutic 1 TAB PO SCH (08:04)
[2018-12-15] MEDS: Folic Acid 1 MG TAB PO SCH (08:04)
[2018-12-15] MEDS: Thiamine 100 MG TAB PO SCH (08:04)
[2018-12-15] MEDS: predniSONE 20 MG TAB PO SCH (08:05)
[2018-12-15] MEDS: HYDROcodone/Acetaminophen 5/325 mg Tablet PO PRN ×2 (08:08→20:26)
--- NOTE | 2018-12-15 11:40 | DIS ---
DATE OF ADMISSION: 12/09/2018 DATE OF DISCHARGE: 12/15/2018 PRIMARY CARE PROVIDER: Dr. Magdaleno Dunn. DISPOSITION: Discharged home. FINAL DIAGNOSES: Deep vein thrombosis of the right leg, hepatitis C with cirrhosis, pleural effusion, pneumonia, post-traumatic stress disorder, thrombocytopenia, tobacco dependence. DISCHARGE MEDICATIONS: 1. Seroquel 150 mg at bedtime. 2. Levaquin 750 mg p.o. daily x7 days. 3. Eliquis 2.5 mg p.o. daily, one month prescription given, length of treatment per primary care physician. ALLERGIES: NO KNOWN DRUG ALLERGIES. PENDING AT TIME OF DISCHARGE: Nothing. CODE STATUS: Full. HOSPITAL COURSE: The patient admitted to [facility] to the Hospitalist Service with a complaint of weakness and dizziness. He had a recent discharge from the [facility]. He has had recent cholecystitis with cholecystostomy drainage. Cholecystostomy tube had already been removed. He was admitted with healthcare-associated pneumonia, right pleural effusion, generalized weakness, right deep vein thrombosis, PTSD, hepatitis C untreated with cirrhosis with portal hypertension and splenomegaly. The patient was treated with IV antibiotics. Microbiology studies were negative. Laboratory; his initial sodium 133, potassium 3.2, BUN 7, creatinine 0.67. Bilirubin was 2.8, followup 2.1. Minimal elevation of AST. He had a white cell count of 4.4, hemoglobin 14.1. Platelet count of 156,000, which came down as low as 95,000. During his hospital stay, he had a consult with Dr. Morteza Ryder, Pulmonology; Dr. Santana Burleson, Gastroenterology. Procedures done, thoracentesis by Aleksey Chester. Followup chest x-ray revealed unremarkable lung gregory with small right pleural effusion, no pneumothorax. The patient has been placed on Eliquis 2.5 mg twice a day for his deep vein thrombosis. He has been on IV antibiotics. He has been transitioned to p.o. Levaquin, which will be continued for seven more days. He has been requested to see his PCP in 7 days for followup. He will need followup chest x-ray for his pleural effusions. He will need followup with primary care provider for renewal of his Eliquis for his deep vein thrombosis and for determination of length of therapy. Job ID: [id number]
--- NOTE | 2018-12-15 17:58 | PDOC.HOSPP ---
- Subjective Encounter Date: 12/15/18 Encounter Time: 17:57 Subjective: patient DCed earlier today, no complaint at that time. now has appealed DC. medicare review - Objective Vital Signs & Weight: Vital Signs (12 hours) Temp Pulse Resp BP Pulse Ox 12/15/18 16:00 97.8 F 82 20 124/74 96 12/15/18 13:44 97.8 F 70 20 123/77 95 12/15/18 08:00 95 12/15/18 07:43 97.4 F L 59 L 18 123/79 95 Weight Weight 271 lb 9.752 oz I&O: 12/14/18 12/15/18 12/16/18 06:59 06:59 06:59 Intake Total 970 1380 720 Balance 970 1380 720 Result Diagrams: 12/14/18 07:49 12/12/18 06:56 Hospitalist ROS - Medication Medications: Active Medications Generic Name Dose Route Start Last Admin Trade Name Freq PRN Reason Stop Dose Admin Hydrocodone Bitart/Acetaminophen 1 tab 12/10/18 08:58 12/15/18 08:08 [place] 5/325 PO 1 tab Q4H PRN Administration Moderate Pain (4-6) Apixaban 2.5 mg 12/11/18 21:00 12/15/18 08:04 Eliquis PO 2.5 mg BID JOI Administration Folic Acid 1 mg 12/10/18 09:00 12/15/18 08:04 Folvite PO 1 mg DAILY JOI Administration Levofloxacin 750 mg 12/12/18 06:00 12/15/18 05:51 Levaquin PO 12/16/18 06:01 750 mg 0600 JOI Administration Multivitamins 1 tab 12/10/18 09:00 12/15/18 08:04 Theragran PO 1 tab DAILY JOI Administration Pantoprazole Sodium 40 mg 12/11/18 21:00 12/15/18 08:04 Protonix PO 40 mg BID JOI Administration Prednisone 40 mg 12/10/18 08:00 12/15/18 08:05 Prednisone PO 40 mg QAM-WM JOI Administration Quetiapine Fumarate 150 mg 12/09/18 21:00 12/14/18 20:26 Seroquel PO 150 mg HS JOI Administration Sodium Chloride 10 ml 12/09/18 10:15 12/15/18 08:05 Flush - Normal Saline IVF 10 ml PRN PRN Administration Saline Flush Thiamine HCl 100 mg 12/10/18 09:00 12/15/18 08:04 Thiamine PO 100 mg DAILY JOI Administration - Exam General Appearance: NAD Neck: no JVD Heart: RRR, no murmur Respiratory: CTAB Gastrointestinal: soft, non-tender Extremities: no edema Hosp A/P (1) Deep vein thrombosis (DVT) of right lower extremity Code(s): I82.401 - ACUTE EMBOLISM AND THOMBOS UNSP DEEP VEINS OF R LOW EXTREM Status: Acute (2) Pleural effusion Code(s): J90 - PLEURAL EFFUSION, NOT ELSEWHERE CLASSIFIED Status: Acute (3) Chronic hepatitis C Code(s): B18.2 - CHRONIC VIRAL HEPATITIS C Status: Chronic (4) Cirrhosis Code(s): K74.60 - UNSPECIFIED CIRRHOSIS OF LIVER Status: Chronic Qualifiers: Hepatic cirrhosis type: unspecified hepatic cirrhosis (5) Depression Code(s): F32.9 - MAJOR DEPRESSIVE DISORDER, SINGLE EPISODE, UNSPECIFIED Status : Chronic Qualifiers: Depression Type: major depressive disorder Major depression episode severity: severe Psychotic features: without psychotic features (6) PTSD (post-traumatic stress disorder) Code(s): F43.10 - POST-TRAUMATIC STRESS DISORDER, UNSPECIFIED Status: Chronic (7) Thrombocytopenia Code(s): D69.6 - THROMBOCYTOPENIA, UNSPECIFIED Status: Chronic - Plan medically stable. post thacetsis. on elquis for DVT on levaquin for PNDC pending appeal
[2018-12-16] MEDS: Multivit, Therapeutic 1 TAB PO SCH (08:25)
[2018-12-16] MEDS: Folic Acid 1 MG TAB PO SCH (08:25)
[2018-12-16] MEDS: HYDROcodone/Acetaminophen 5/325 mg Tablet PO PRN ×2 (08:25→20:26)
[2018-12-16] MEDS: Apixaban 2.5 MG TAB PO SCH ×2 (08:25→20:25)
[2018-12-16] MEDS: Thiamine 100 MG TAB PO SCH (08:25)
[2018-12-16] MEDS: predniSONE 20 MG TAB PO SCH (08:25)
--- NOTE | 2018-12-16 16:19 | PDOC.HOSPP ---
- Subjective Encounter Date: 12/16/18 Encounter Time: 16:17 Subjective: patient appealed dicharge on grounds he has neuropathy in his feet - Objective Vital Signs & Weight: Vital Signs (12 hours) Temp Pulse Resp BP Pulse Ox 12/16/18 08:19 94 L 12/16/18 08:00 97.8 F 60 20 119/78 94 L Weight Weight 271 lb 9.752 oz I&O: 12/15/18 12/16/18 12/17/18 06:59 06:59 06:59 Intake Total 1380 1940 Balance 1380 1940 Result Diagrams: 12/14/18 07:49 12/12/18 06:56 Hospitalist ROS - Medication Medications: Active Medications Generic Name Dose Route Start Last Admin Trade Name Freq PRN Reason Stop Dose Admin Hydrocodone Bitart/Acetaminophen 1 tab 12/10/18 08:58 12/16/18 08:25 [place] 5/325 PO 1 tab Q4H PRN Administration Moderate Pain (4-6) Apixaban 2.5 mg 12/11/18 21:00 12/16/18 08:25 Eliquis PO 2.5 mg BID JOI Administration Folic Acid 1 mg 12/10/18 09:00 12/16/18 08:25 Folvite PO 1 mg DAILY JOI Administration Multivitamins 1 tab 12/10/18 09:00 12/16/18 08:25 Theragran PO 1 tab DAILY JOI Administration Pantoprazole Sodium 40 mg 12/11/18 21:00 12/16/18 08:25 Protonix PO 40 mg BID JOI Administration Prednisone 40 mg 12/10/18 08:00 12/16/18 08:25 Prednisone PO 40 mg QAM-WM JOI Administration Quetiapine Fumarate 150 mg 12/09/18 21:00 12/15/18 20:26 Seroquel PO 150 mg HS JOI Administration Sodium Chloride 10 ml 12/09/18 10:15 12/15/18 08:05 Flush - Normal Saline IVF 10 ml PRN PRN Administration Saline Flush Thiamine HCl 100 mg 12/10/18 09:00 12/16/18 08:25 Thiamine PO 100 mg DAILY JOI Administration - Exam Neck: no JVD Heart: RRR, no murmur Respiratory: CTAB, no wheezes Gastrointestinal: soft, normal bowel sounds Extremities: no edema Extremeties - other findings: feet warm, non-tender to touch, sensation decreased Hosp A/P (1) Deep vein thrombosis (DVT) of right lower extremity Code(s): I82.401 - ACUTE EMBOLISM AND THOMBOS UNSP DEEP VEINS OF R LOW EXTREM Status: Acute (2) Pleural effusion Code(s): J90 - PLEURAL EFFUSION, NOT ELSEWHERE CLASSIFIED Status: Acute (3) Chronic hepatitis C Code(s): B18.2 - CHRONIC VIRAL HEPATITIS C Status: Chronic (4) Cirrhosis Code(s): K74.60 - UNSPECIFIED CIRRHOSIS OF LIVER Status: Chronic Qualifiers: Hepatic cirrhosis type: unspecified hepatic cirrhosis (5) Depression Code(s): F32.9 - MAJOR DEPRESSIVE DISORDER, SINGLE EPISODE, UNSPECIFIED Status : Chronic Qualifiers: Depression Type: major depressive disorder Major depression episode severity: severe Psychotic features: without psychotic features (6) PTSD (post-traumatic stress disorder) Code(s): F43.10 - POST-TRAUMATIC STRESS DISORDER, UNSPECIFIED Status: Chronic (7) Thrombocytopenia Code(s): D69.6 - THROMBOCYTOPENIA, UNSPECIFIED Status: Chronic (8) Peripheral neuropathy Code(s): G62.9 - POLYNEUROPATHY, UNSPECIFIED Status: Acute Qualifiers: Peripheral neuropathy type: polyneuropathy, unspecified Qualified Code(s): G62.9 - Polyneuropathy, unspecified - Plan medically stable. post thacetsis. on elquis for DVT on levaquin for PNDC pending appealp patient has no acute process in his feet. he is on multiple meds for multiple problems including cirrhosis of liver. i am loathe to add more meds for this problem which is an outpatoint and not inpatient problem
[2018-12-17] MEDS: Multivit, Therapeutic 1 TAB PO SCH (08:48)
[2018-12-17] MEDS: predniSONE 20 MG TAB PO SCH (08:49)
[2018-12-17] MEDS: Thiamine 100 MG TAB PO SCH (08:49)
[2018-12-17] MEDS: Folic Acid 1 MG TAB PO SCH (08:49)
[2018-12-17] MEDS: Apixaban 2.5 MG TAB PO SCH ×2 (08:50→20:42)
--- NOTE | 2018-12-17 13:50 | PDOC.HOSPP ---
- Subjective Encounter Date: 12/17/18 Encounter Time: 13:47 Subjective: no change - Objective Vital Signs & Weight: Vital Signs (12 hours) Temp Pulse Resp BP Pulse Ox 12/17/18 08:00 97.6 F 61 20 117/73 94 L 12/17/18 04:37 97.8 F 60 16 125/74 92 L Weight Weight 271 lb 9.752 oz I&O: 12/16/18 12/17/18 12/18/18 06:59 06:59 06:59 Intake Total 1939 1520 Balance 1939 1520 Result Diagrams: 12/14/18 07:49 12/12/18 06:56 Hospitalist ROS - Medication Medications: Active Medications Generic Name Dose Route Start Last Admin Trade Name Freq PRN Reason Stop Dose Admin Hydrocodone Bitart/Acetaminophen 1 tab 12/10/18 08:58 12/16/18 20:26 [place] 5/325 PO 1 tab Q4H PRN Administration Moderate Pain (4-6) Apixaban 2.5 mg 12/11/18 21:00 12/17/18 08:50 Eliquis PO 2.5 mg BID JOI Administration Folic Acid 1 mg 12/10/18 09:00 12/17/18 08:49 Folvite PO 1 mg DAILY JOI Administration Multivitamins 1 tab 12/10/18 09:00 12/17/18 08:48 Theragran PO 1 tab DAILY JOI Administration Pantoprazole Sodium 40 mg 12/11/18 21:00 12/17/18 08:49 Protonix PO 40 mg BID JOI Administration Prednisone 40 mg 12/10/18 08:00 12/17/18 08:49 Prednisone PO 40 mg QAM-WM JOI Administration Quetiapine Fumarate 150 mg 12/09/18 21:00 12/16/18 20:25 Seroquel PO 150 mg HS JOI Administration Sodium Chloride 10 ml 12/09/18 10:15 12/15/18 08:05 Flush - Normal Saline IVF 10 ml PRN PRN Administration Saline Flush Thiamine HCl 100 mg 12/10/18 09:00 12/17/18 08:49 Thiamine PO 100 mg DAILY JOI Administration Hosp A/P (1) Deep vein thrombosis (DVT) of right lower extremity Code(s): I82.401 - ACUTE EMBOLISM AND THOMBOS UNSP DEEP VEINS OF R LOW EXTREM Status: Acute (2) Pleural effusion Code(s): J90 - PLEURAL EFFUSION, NOT ELSEWHERE CLASSIFIED Status: Acute (3) Chronic hepatitis C Code(s): B18.2 - CHRONIC VIRAL HEPATITIS C Status: Chronic (4) Cirrhosis Code(s): K74.60 - UNSPECIFIED CIRRHOSIS OF LIVER Status: Chronic Qualifiers: Hepatic cirrhosis type: unspecified hepatic cirrhosis (5) Depression Code(s): F32.9 - MAJOR DEPRESSIVE DISORDER, SINGLE EPISODE, UNSPECIFIED Status : Chronic Qualifiers: Depression Type: major depressive disorder Major depression episode severity: severe Psychotic features: without psychotic features (6) PTSD (post-traumatic stress disorder) Code(s): F43.10 - POST-TRAUMATIC STRESS DISORDER, UNSPECIFIED Status: Chronic (7) Thrombocytopenia Code(s): D69.6 - THROMBOCYTOPENIA, UNSPECIFIED Status: Chronic (8) Peripheral neuropathy Code(s): G62.9 - POLYNEUROPATHY, UNSPECIFIED Status: Acute Qualifiers: Peripheral neuropathy type: polyneuropathy, unspecified Qualified Code(s): G62.9 - Polyneuropathy, unspecified - Plan medicare denied his appeal of loriearge. his complaint is he is unable to walk, however, multiple witnesses document his walking to his car to smoke multiple x a day. he says he ic calling his online activist
[2018-12-17] MEDS: HYDROcodone/Acetaminophen 5/325 mg Tablet PO PRN (20:42)
[2018-12-18] MEDS: Multivit, Therapeutic 1 TAB PO SCH (08:24)
[2018-12-18] MEDS: Folic Acid 1 MG TAB PO SCH (08:24)
[2018-12-18] MEDS: predniSONE 20 MG TAB PO SCH (08:25)
[2018-12-18] MEDS: Apixaban 2.5 MG TAB PO SCH ×2 (08:25→20:09)
[2018-12-18] MEDS: Thiamine 100 MG TAB PO SCH (08:26)
[2018-12-18] MEDS: HYDROcodone/Acetaminophen 5/325 mg Tablet PO PRN ×2 (08:29→20:09)
--- NOTE | 2018-12-18 13:32 | PDOC.EVN ---
Event Note - Event Note Event Note: not in room, seen walking to elevator and leaving per staff
--- NOTE | 2018-12-18 15:04 | PDOC.HOSPP ---
- Subjective Encounter Date: 12/18/18 Encounter Time: 15:02 Subjective: "i wnt to leave" me- your free to go, you have been discharged, he " i have no place to go". fact- [facility] - Objective Vital Signs & Weight: Vital Signs (12 hours) Temp Pulse Resp BP Pulse Ox 12/18/18 08:00 97.8 F 79 16 110/69 95 Weight Weight 271 lb 9.752 oz I&O: 12/17/18 12/18/18 12/19/18 06:59 06:59 06:59 Intake Total 1520 740 240 Balance 1520 740 240 Result Diagrams: 12/14/18 07:49 12/12/18 06:56 Hospitalist ROS - Medication Medications: Active Medications Generic Name Dose Route Start Last Admin Trade Name Freq PRN Reason Stop Dose Admin Hydrocodone Bitart/Acetaminophen 1 tab 12/10/18 08:58 12/18/18 08:29 [place] 5/325 PO 1 tab Q4H PRN Administration Moderate Pain (4-6) Apixaban 2.5 mg 12/11/18 21:00 12/18/18 08:25 Eliquis PO 2.5 mg BID JOI Administration Folic Acid 1 mg 12/10/18 09:00 12/18/18 08:24 Folvite PO 1 mg DAILY JOI Administration Multivitamins 1 tab 12/10/18 09:00 12/18/18 08:24 Theragran PO 1 tab DAILY JOI Administration Pantoprazole Sodium 40 mg 12/11/18 21:00 12/18/18 08:25 Protonix PO 40 mg BID JOI Administration Prednisone 40 mg 12/10/18 08:00 12/18/18 08:25 Prednisone PO 40 mg QAM-WM JOI Administration Quetiapine Fumarate 150 mg 12/09/18 21:00 12/17/18 20:42 Seroquel PO 150 mg HS JOI Administration Sodium Chloride 10 ml 12/09/18 10:15 12/15/18 08:05 Flush - Normal Saline IVF 10 ml PRN PRN Administration Saline Flush Thiamine HCl 100 mg 12/10/18 09:00 12/18/18 08:26 Thiamine PO 100 mg DAILY JOI Administration - Exam Extremities: no cyanosis, no clubbing, no edema Extremities - other findings: feet warm, non-tender Hosp A/P (1) Deep vein thrombosis (DVT) of right lower extremity Code(s): I82.401 - ACUTE EMBOLISM AND THOMBOS UNSP DEEP VEINS OF R LOW EXTREM Status: Acute (2) Pleural effusion Code(s): J90 - PLEURAL EFFUSION, NOT ELSEWHERE CLASSIFIED Status: Acute (3) Chronic hepatitis C Code(s): B18.2 - CHRONIC VIRAL HEPATITIS C Status: Chronic (4) Cirrhosis Code(s): K74.60 - UNSPECIFIED CIRRHOSIS OF LIVER Status: Chronic Qualifiers: Hepatic cirrhosis type: unspecified hepatic cirrhosis (5) Depression Code(s): F32.9 - MAJOR DEPRESSIVE DISORDER, SINGLE EPISODE, UNSPECIFIED Status : Chronic Qualifiers: Depression Type: major depressive disorder Major depression episode severity: severe Psychotic features: without psychotic features (6) PTSD (post-traumatic stress disorder) Code(s): F43.10 - POST-TRAUMATIC STRESS DISORDER, UNSPECIFIED Status: Chronic (7) Thrombocytopenia Code(s): D69.6 - THROMBOCYTOPENIA, UNSPECIFIED Status: Chronic (8) Peripheral neuropathy Code(s): G62.9 - POLYNEUROPATHY, UNSPECIFIED Status: Acute Qualifiers: Peripheral neuropathy type: polyneuropathy, unspecified Qualified Code(s): G62.9 - Polyneuropathy, unspecified - Plan medicare denied his appeal of loriearge. He has now filed for reconsideration of denial
[2018-12-19 08:01] VITALS: BP 110/73; TEMP 97.9
[2018-12-19] MEDS: Thiamine 100 MG TAB PO SCH (08:57)
[2018-12-19] MEDS: Folic Acid 1 MG TAB PO SCH (08:57)
[2018-12-19] MEDS: Apixaban 2.5 MG TAB PO SCH (08:57)
[2018-12-19] MEDS: Multivit, Therapeutic 1 TAB PO SCH (08:57)
[2018-12-19] MEDS: predniSONE 20 MG TAB PO SCH (08:57)
--- NOTE | 2018-12-20 03:16 | DIS ---
DATE OF ADMISSION: 12/09/2018 DATE OF DISCHARGE: 12/19/2018 REASON FOR HOSPITALIZATION: Shortness of breath. SIGNIFICANT FINDINGS: The patient was found to have lower extremity DVT on ultrasound. The patient also found to have community-acquired pneumonia. PROCEDURES PERFORMED/TREATMENTS RENDERED: Please see full radiographic imaging, history and physical, and consultation from sustainable agriculture specialist, powerhouse operator for full details. The patient was medically optimized and stabilized for discharge. The patient cleared by all specialists. The patient was recommended follow up in the outpatient setting. CONDITION ON DISCHARGE: Stable. SPECIFIC INSTRUCTIONS FOR THE PATIENT/FAMILY: 1. The patient is recommended to take all medications as directed, to be re-evaluated by primary care physician. 2. The patient is recommended to follow up with primary care physician in the next 5 to 7 days-or return to acute care hospital immediately if unable to be seen. The patient recommended to follow up with primary care physician for referral to Pain Management as he has been referred in the past, though he has not followed up. 3. The patient is recommended to return to acute care hospital immediately if signs or symptoms return, worsen, or any other new symptoms occur. DISCHARGE MEDICATIONS: 1. Levaquin 750 mg one tablet p.o. daily for 3 days. 2. Eliquis 2.5 mg one tablet p.o. b.i.d. 3. Seroquel 150 mg one tab p.o. at bedtime. DISCHARGE SUMMARY/HOSPITAL COURSE: Please see full discharge summary report from 12/15/2018. Since that time, the patient has filed an appeal with Medicare, which has been denied. The patient filed a second reconsideration of appeal for Medicare, which was also denied. The patient is breathing well on room air. Patient ambulating to and from the hospital on the 4th floor out to the grassy area multiple times today for smoking breaks. I evaluated the patient on 12/19/2018 and agreed that the patient is medically safe for discharge at this time. The patient is recommended to take all medications as directed. The patient having questions about pain management and states that he wants to get back on methadone. I recommended he talk with his primary care physician about medication such as gabapentin and Lyrica. The patient states that he has been on Lyrica in the past and he states that it does not work. The patient states that the only thing that will help him would be more methadone. I rewrote the patient's prescriptions for Levaquin, he will need an additional three days of Levaquin for resolution of pneumonia with final dose being on 12/22/2018. The patient was written for Se and I coordinated with the case mgr, who states that he has been given a coupon card that will cost him zero dollars for the first month until he can come up with another long-term strategy on anticoagulation. The patient is recommended to take all medications as directed , to be re-evaluated by primary care physician in the next 5 to 7 days. The patient is recommended to follow up with primary care physician in the next 5 to 7 days-or return to acute care hospital immediately if unable to be seen. The patient is recommended to return to acute care hospital immediately if signs or symptoms return, worsen, or any other new symptoms occur. Greater than 34 minutes spent coordinating care and discharge process. Job ID: [id number] MTDD
--- NOTE | 2018-12-23 07:05 | PQF ---
SAP Swatch Clerk Crystal Reports Winform ViewerFITLUNA VICENTE ESTRADA MORALES MD [id number] [facility] [id number] CLINICAL DOCUMENTATION CLARIFICATION FORM: POST DISCHARGE Addendum to original discharge summary date: ____ Late entry note date: __ DATE: 12/23/2018 ATTN: ESTRADA MORALES MD Please exercise your independent, professional judgment in responding to the clarification form. Clinical indicators are provided on the bottom of this form for your review Etiology of Pleural Effusion Please check appropriate box(s): [ ] Pleural effusion Due to Pneumonia [ x ] Pleural effusion Due to Pulmonary Embolism [ ] Other diagnosis [ ] Unable to determine In addition, please specify: Present on Admission (POA): [ x ] Yes [ ] No [ ] Unable to determine For continuity of documentation, please document condition throughout progress notes and discharge summary. Thank You. CLINICAL INDICATORS - SIGNS / SYMPTOMS / LABS SOB and weakness - Documented in h&P on 12/16 by Sparkle Mcconnell MD Healthcare-associated Pneumonia suspected gram negative - Documented in h&P on 12/16 by Sparkle Mcconnell MD Presumed Pulmonary embolism resulting in the eosinophillic exudate - Documented in Progress Notes on 12/12 by Aleksey Pro MD My presumption is that he had a PE causing a Pulmonary infarction this is likely resulted the effusion - Documented in Progress Notes on 12/12 by Aleksey Pro MD RISK FACTORS DVT TREATMENTS: Chest xray Thoracentesis - Documented in operative report Repeat chest Xray - Documented in Progress Notes on 12/12 by Aleksey Pro MD (This form is maintained as a part of the permanent medical record) [facility]ITALKwadwo
--- NOTE | 2018-12-23 07:33 | PQF ---
SAP Wide Area Network Administrator Crystal Reports Winform ViewerLUNA FINK ESTRADA MORALES MD [id number] [facility] [id number] CLINICAL DOCUMENTATION CLARIFICATION FORM: POST DISCHARGE Addendum to original discharge summary date: ____ Late entry note date: __ DATE: 12/23/2018 ATTN: ESTRADA MORALES MD Please exercise your independent, professional judgment in responding to the clarification form. Clinical indicators are provided on the bottom of this form for your review Etiology of Weakness Please check appropriate box(s): [ ] Weakness Due to Pneumonia [ ]Weakness Due to Pleural Effusion [ ]Weakness Due to DVT [ x ] Other diagnosis _multifactoral generalized weakness [ ] Unable to determine In addition, please specify: Present on Admission (POA): [ x ] Yes [ ] No [ ] Unable to determine For continuity of documentation, please document condition throughout progress notes and discharge summary. Thank You. CLINICAL INDICATORS - SIGNS / SYMPTOMS / LABS Generalized Weakness and Dizziness last 1 week and SOB - Documented in H&P on 12/09 Sparkle Mcconnell MD Lower extremity swelling over the last one week - Documented in H&P on 12/09 Sparkle Mcconnell MD Generalized Weakness multifactorial HCAP - Documented in H&P on 12/09 Sparkle Mcconnell MD pleural effusion - Documented in H&P on 12/09 Sparkle Mcconnell MD DVT - Documented in DS on 12/15 by Eliel Keane MD RISK FACTORS Hx of recurrent falls - Documented in DS on 12/15 by Eliel Keane MD Hx of cirrhosis - Documented in H&P on 12/09 Sparkle Mcconnell MD TREATMENTS: Thoracentesis- Operative report Continue Empiric antibiotics - Documented in H&P on 12/09 Sparkle Mcconnell MD Consultation Placed Eliquis 2.5 mg - Documented in DS on 12/15 by Eliel Keane MD SAP Wide Area Network Administrator Crystal Reports Winform Viewer (This form is maintained as a part of the permanent medical record) 2014 [employer] All Rights Reserved Concepcion [email or web address] [not provided] MTDD
== END 2018-12-19 11:45 | disposition home or self-care (01) | DRG 175 ==
LOC: ERS 22:04 → T4-B 12-09 02:29
PROVIDERS: ADMIT Hospitalist; ATTEND Hospitalist
PROC: 0W9930Z Drainage of Right Pleural Cavity with Drainage Device, Percutaneous Approach (ICD-10-PCS; principal; 2018-12-09)
DX: I26.99 Other pulmonary embolism without acute cor pulmonale (principal); J18.9 Pneumonia, unspecified organism; B19.21 Unspecified viral hepatitis C with hepatic coma; J90 Pleural effusion, not elsewhere classified; I82.401 Acute embolism and thrombosis of unspecified deep veins of right lower extremity; J98.11 Atelectasis; D68.4 Acquired coagulation factor deficiency; K76.6 Portal hypertension; Z90.49 Acquired absence of other specified parts of digestive tract; F32.9 Major depressive disorder, single episode, unspecified; F43.10 Post-traumatic stress disorder, unspecified; Z79.899 Other long term (current) drug therapy; F17.210 Nicotine dependence, cigarettes, uncomplicated; E66.9 Obesity, unspecified; Z68.36 Body mass index [BMI] 36.0-36.9, adult; K74.60 Unspecified cirrhosis of liver; D69.6 Thrombocytopenia, unspecified; R16.1 Splenomegaly, not elsewhere classified; B18.2 Chronic viral hepatitis C; G62.9 Polyneuropathy, unspecified
CPT/HCPCS: 36415; 70450; 71045; 71046; 71275; 80048; 80053; 80202; 82805; 82945; 83615; 83735; 83880; 83986; 84157; 84484; 85014; 85018; 85025; 85049; 85060; 87070; 87116; 87205; 87206; 88112; 88305; 89051; 93005; 94640; 96365; 96366; 96372; 96375; J1644; J1650; J2001; J2270; J2543; J3370; J3411; J3490; J7042; J7050; J7512; J7620

== ENCOUNTER 2018-12-22 15:43 | Emergency (ER) | payer MEDICARE ==
[2018-12-22 16:33] LABS: #Basophils 0.1 thou/uL (0.0-0.2); #Eosinphils 0.1 thou/uL (0.0-0.7); #Lymphocytes 0.6 thou/uL (1.20-3.40); #Monocytes 0.6 thou/uL (0.11-0.59); #Neutrophils 6.9 thou/uL (1.40-6.50); %Basophils 1.1 % (0.0-1.0); %Eosinophils 0.7 % (0.0-10.0); %Lymphocytes 6.9 % (21.0-51.0); %Monocytes 7.2 % (0.0-10.0); %Neutrophils 84.2 % (42.0-75.0); Mean Corpuscular HGB CONC 34.1 g/dL (32.0-36.0); Mean Corpuscular Hemoglobin 31.8 pg (27.0-31.0); Mean Corpuscular Volume 93.2 fL (78.0-98.0); Mean Platelet Volume 7.3 fL (7.4-10.4); Platelet Count 94 thou/uL (130-400); RBC Distribution Width 14.8 % (11.5-14.5); Red Blood Cell (RBC) Count 5.67 mill/uL (4.70-6.10); White Blood Cell (WBC) Count 8.2 thou/uL (4.8-10.8)
[2018-12-22 16:53] LABS: ALT (SGPT) 31 U/L (8-55); AST (SGOT) 40 U/L (5-34); Albumin 3.5 g/dL (3.4-4.8); Alkaline Phosphatase 107 U/L (40-150); Anion Gap 11 mmol/L (10-20); BUN (Urea Nitrogen) 20 mg/dL (8.4-25.7); Bilirubin, Total 3.4 mg/dL (0.2-1.2); Calc. Creatinine Clearance 0 mL/min (70-130); Calcium 8.8 mg/dL (7.8-10.44); Carbon Dioxide 25 mmol/L (23-31); Chloride 107 mmol/L (98-107); Estimated GFR-MDRD 74; Globulin 4.1 g/dL (2.4-3.5); Glucose 129 mg/dL (80-115); Protein, Total 7.6 g/dL (5.8-8.1); Sodium 139 mmol/L (136-145)
== END 2018-12-22 20:31 | disposition home or self-care (01) ==
LOC: ERS 15:43
DX: G62.9 Polyneuropathy, unspecified (principal); E86.0 Dehydration; F32.9 Major depressive disorder, single episode, unspecified; F43.10 Post-traumatic stress disorder, unspecified; F17.210 Nicotine dependence, cigarettes, uncomplicated
CPT/HCPCS: 80053; 85025; 96360; 96361

== ENCOUNTER 2019-01-01 14:15 | Emergency (ER) | payer MEDICARE ==
[2019-01-01 15:46] LABS: INR-International Normal Ratio 1.2; PTT 31.4 SEC (22.9-36.1); Prothrombin Time 15.4 SEC (12.0-14.7)
[2019-01-01 16:03] LABS: ALT (SGPT) 53 U/L (8-55); AST (SGOT) 101 U/L (5-34); Albumin 2.9 g/dL (3.4-4.8); Alkaline Phosphatase 103 U/L (40-110); Anion Gap 10 mmol/L (10-20); BUN (Urea Nitrogen) 6 mg/dL (8.4-25.7); Bilirubin, Total 4.1 mg/dL (0.2-1.2); CK (CPK) 444 U/L (30-200); Calc. Creatinine Clearance 0 mL/min (70-130); Calcium 8.2 mg/dL (7.8-10.44); Carbon Dioxide 25 mmol/L (23-31); Chloride 107 mmol/L (98-107); Estimated GFR-MDRD Greater than 90; Globulin 3.5 g/dL (2.4-3.5); Glucose 111 mg/dL (80-115); Potassium 3.4 mmol/L (3.5-5.1); Protein, Total 6.4 g/dL (5.8-8.1); Sodium 139 mmol/L (136-145)
--- NOTE | 2019-01-01 16:15 | ULT ---
EXAM: Right lower extremity venous ultrasound HISTORY: Right lower extremity pain and edema COMPARISON: 12/08/2018 TECHNIQUE: Multiplanar grayscale and color Doppler images were obtained in a right lower extremity ve nous ultrasound. Spectral analysis of the Doppler waveforms were performed. FINDINGS: A nonocclusive thrombus is again seen extending from the common femoral vein down to the po sterior tibial veins. Thrombus is also seen within the profunda femoral vein. IMPRESSION: Stable extensive DVT of the right leg
[2019-01-01 16:38] LABS: #Eosinphils 0.3 thou/uL (0.0-0.7); #Lymphocytes 1.2 thou/uL (1.20-3.40); #Monocytes 0.6 thou/uL (0.11-0.59); #Neutrophils 3.8 thou/uL (1.40-6.50); %Basophils 0.7 % (0.0-1.0); %Eosinophils 5.7 % (0.0-10.0); %Lymphocytes 20.3 % (21.0-51.0); %Monocytes 9.8 % (0.0-10.0); %Neutrophils 63.6 % (42.0-75.0); Hemoglobin 16.6 g/dL (14.0-18.0); Mean Corpuscular HGB CONC 35.2 g/dL (32.0-36.0); Mean Corpuscular Hemoglobin 32.2 pg (27.0-31.0); Mean Corpuscular Volume 91.5 fL (78.0-98.0); Mean Platelet Volume 7.4 fL (7.4-10.4); Platelet Count 121 thou/uL (130-400); RBC Distribution Width 14.8 % (11.5-14.5); Red Blood Cell (RBC) Count 5.16 mill/uL (4.70-6.10)
--- NOTE | 2019-01-01 17:43 | RAD ---
Exam:Right tibia fibula 2 views HISTORY: Pain. Trauma. COMPARISON: None FINDINGS: No fracture. No cortical irregularity. No periosteal reaction. IMPRESSION: Unremarkable 2 views right tibia-fibula
--- NOTE | 2019-01-01 17:51 | RAD ---
TWO VIEWS RIGHT FEMUR: 01/01/19 COMPARISON: None. HISTORY: Right leg pain after fall on Saturday. FINDINGS: Two views of the right femur shows no evidence of acute fracture or dislocation. Moderate diffuse sof t tissue swelling is seen. IMPRESSION: No evidence of acute osseous abnormality. POS: C
== END 2019-01-01 23:15 ==
LOC: ERS 14:15
DX: I82.412 Acute embolism and thrombosis of left femoral vein (principal); I82.442 Acute embolism and thrombosis of left tibial vein; F32.9 Major depressive disorder, single episode, unspecified; F43.10 Post-traumatic stress disorder, unspecified; F17.210 Nicotine dependence, cigarettes, uncomplicated; Z79.899 Other long term (current) drug therapy
CPT/HCPCS: 80053; 82550; 84484; 85025; 85610; 85730; 93005

== ENCOUNTER 2019-06-05 15:53 | Observation (INO) | payer MEDICARE ==
[~2019-06-05 15:53] MED LIST changes: -ISOVUE-370 76%-LOCM 1 ML ONE; +Iopamidol-370 76% 500 ML 1 ML ONE
[2019-06-05 17:38] LABS: Hemoglobin 16.2 g/dL (14.0-18.0); Mean Corpuscular HGB CONC 35.7 g/dL (32.0-36.0); Mean Corpuscular Hemoglobin 32.1 pg (27.0-31.0); Mean Corpuscular Volume 89.8 fL (78.0-98.0); Mean Platelet Volume 7.2 fL (7.4-10.4); Platelet Count 101 thou/uL (130-400); RBC Distribution Width 13.5 % (11.5-14.5); Red Blood Cell (RBC) Count 5.05 mill/uL (4.70-6.10); White Blood Cell (WBC) Count 4.3 thou/uL (4.8-10.8)
--- NOTE | 2019-06-05 17:47 | RAD ---
EXAM: Portable chest PROVIDED CLINICAL HISTORY: Shortness of breath COMPARISON: 12/08/2018 FINDINGS: Cardiac and mediastinal silhouette is within normal limits. There is emphysematous change noted invol ving the lung parenchyma. There is a focal opacity in the right upper lung zone medially that is incompletely characterized. No pleural fluid or pneumothorax apparent. IMPRESSION: Possible lung nodule. Correlation with PA and lateral views of the chest recommended.
[2019-06-05 17:49] LABS: ALT (SGPT) 23 U/L (8-55); AST (SGOT) 47 U/L (5-34); Albumin 3.2 g/dL (3.4-4.8); Alkaline Phosphatase 107 U/L (40-110); Anion Gap 15 mmol/L (10-20); BUN (Urea Nitrogen) Less than 4 mg/dL (8.4-25.7); Bilirubin, Total 2.7 mg/dL (0.2-1.2); CK (CPK) 129 U/L (30-200); Calc. Creatinine Clearance 0 mL/min (70-130); Calcium 8.3 mg/dL (7.8-10.44); Carbon Dioxide 21 mmol/L (23-31); Chloride 102 mmol/L (98-107); Estimated GFR-MDRD Greater than 90; Globulin 4.2 g/dL (2.4-3.5); Glucose 101 mg/dL (80-115); Potassium 3.7 mmol/L (3.5-5.1); Protein, Total 7.4 g/dL (5.8-8.1); Sodium 134 mmol/L (136-145)
[2019-06-05 17:56] LABS: Band 10 % (5-11); Eosinophils 1 % (0-10); Lymphocytes 19 % (21-51); MDiff Complete? YES; Monocytes 5 % (0-10); Neutrophil 57 % (42-75); Platelet Morphology Comment Appears Decreased; Polychromasia SLIGHT = 2-3 cells (100X) (0-2/hpf); Reactive Lymphocytes 8 % (0-10)
--- NOTE | 2019-06-05 21:30 | RAD ---
EXAM: XR Shoulder Lt 3 View STANDARD PROVIDED CLINICAL HISTORY: Pain FINDINGS: There is no evidence for fracture or other acute osseous abnormality. Alignment appears anatomic. Deg enerative changes are seen involving the acromioclavicular and glenohumeral joints. IMPRESSION: No evidence for an acute osseous abnormality. If there is persistent clinical concern, conservative m anagement and follow-up imaging advised.
--- NOTE | 2019-06-05 21:31 | RAD ---
EXAM: XR Knee Lt 4 View STANDARD PROVIDED CLINICAL HISTORY: Pain FINDINGS: There is no evidence for fracture or other acute osseous abnormality. Alignment appears anatomic. Delia nt spaces appear preserved. Vascular calcifications are seen. IMPRESSION: No evidence for an acute osseous abnormality. If there is persistent clinical concern, conservative m anagement and follow-up imaging advised.
[2019-06-05 21:34] LABS: INR-International Normal Ratio 1.2; PTT 29.2 SEC (22.9-36.1)
--- NOTE | 2019-06-05 23:08 | CT ---
EXAM: CT pulmonary angiogram with contrast and 3-D MIP reconstructions PROVIDED CLINICAL HISTORY: None COMPARISON: 12/09/2018 FINDINGS: There is no evidence for central or segmental pulmonary embolus. No pleural fluid or pneumothorax apparent. No evidence for thoracic lymph node enlargement. There is bronchial wall thickening and partial opacification of several medial right lower lobe subse gmental bronchi. There is patchy groundglass opacity and subsegmental atelectatic change involving the adjacent right lower lobe. Lungs appear otherwise clear. Airway appears otherwise patent and of n ormal caliber. The visualized portions of the upper abdomen demonstrate no acute findings. Peripheral nodular contou r of the liver compatible with cirrhosis and partially visualized splenomegaly compatible with portal hypertension. The osseous structures demonstrate no concerning lytic or blastic lesions. IMPRESSION: 1. No evidence for central or segmental pulmonary embolus. 2. Partial opacification of several subsegmental right medial basilar bronchi with adjacent groundgla ss opacity and volume loss suggesting pneumonitis.
[2019-06-05] MEDS ORDERED: Aspirin Chewable 81 MG TAB ONE (23:30)
[2019-06-05 23:57] LABS: Bacteria/HPF None Seen HPF (None Seen); Bilirubin Negative (Negative); Blood, Urine Trace (Negative); Clarity Clear (Clear); Glucose, Urine (Dipstick) Normal (Negative); Leukocyte Negative Leu/uL (Negative); Nitrite Negative (Negative); Protein, Urine (Dipstick) 20 mg/dL (Neg-Trace); RBC/HPF 0-3 HPF (0-3); Squamous Epithelial 0-3 HPF (0-3); WBC/HPF 0-3 HPF (0-3)
[2019-06-06] MEDS ORDERED: cefTRIAXone\\ROCEPHIN 1 GM in Sodium Chloride 0.9% 100 ML IVPB SCH (01:30)
[2019-06-06] MEDS ORDERED: Azithromycin 500 MG in Sodium Chloride 0.9% 250 ML 250 ML IVPB SCH (02:00)
--- NOTE | 2019-06-06 02:51 | HP ---
CHIEF COMPLAINT: Syncope. HISTORY OF PRESENT ILLNESS: Mr. Hairston is a 63-year-old male with past medical history of liver cirrhosis, hepatitis C, DVT, presented to the emergency room with syncopal episode, recurrent, first one happened 3 days ago. As per patient, he went to get his mailbox and then apparently he passed out and few minutes later, he found himself in the street, does not recall exactly what happened. He reported injury to the left shoulder and left knee. He reports smoking history. Workup in the emergency room including CTA of chest shows no evidence for central or segmental pulmonary embolus. There is a partial opacification of several subsegmental right medial basilar bronchi with adjacent ground-glass opacity volume loss suggesting ?pneumonitis. Troponin 0.02. EKG showed sinus rhythm at a rate of 62 with complete right bundle branch block. The patient is being admitted to the hospital for further management. PAST MEDICAL HISTORY: 1. Liver cirrhosis. 2. Hepatitis C. 3. DVT, right leg. PAST SURGICAL HISTORY: 1. Gallbladder drain. 2. Thoracentesis. PAST PSYCHIATRIC HISTORY: 1. PTSD. 2. Psychosis. 3. Depression. FAMILY HISTORY: Reviewed and noncontributory. HOME MEDICATIONS: Please see home medication reconciliation form for updated medications. ALLERGIES: NO KNOWN ALLERGIES. REVIEW OF SYSTEMS: Review of 14 systems negative except what is mentioned in history of present illness. PHYSICAL EXAMINATION: GENERAL: The patient is awake, alert, does not appear to be in acute distress. VITAL SIGNS: Blood pressure 147/88, pulse is 74, respiratory rate is 16, temperature 98.9. HEAD : Normocephalic. NECK: Supple. No JVD. CHEST: Fair bilateral air entry. HEART: S1, S2. Regular. ABDOMEN: Soft, nontender. Bowel sounds present. NEUROLOGIC: Awake, alert. PSYCHIATRIC: Unable to assess. EXTREMITIES: No clubbing or cyanosis. IMAGING STUDIES: As mentioned above in the history of present illness. LABORATORY DATA: Troponin 0.02. WBC 4.3, hemoglobin 16.2, platelet 101. Sodium is 134, BUN is less than 4, creatinine 0.5, total bilirubin 2.7. ASSESSMENT: 1. Syncope ?etiology. 2. Pneumonitis?? 3. Liver cirrhosis. 4. Hepatitis C. PLAN: 1. Admit. 2. Telemetry monitoring. 3. Serial troponins. 4. 2D echo. 5. Consult Cardiology in a.m. for evaluation and further recommendations. 6. Empiric IV antibiotic. 7. Reconcile home medications. 8. DVT prophylaxis. Early ambulation. 9. Expected length of stay, at least 1 midnight if patient is stable and further workup negative. Job ID: [id number]
[2019-06-06 02:53] LABS: Troponin I 0.019 ng/mL (< 0.028)
[2019-06-06] MEDS: Sodium Chloride 0.9% 1,000 ML IV SCH ×5 (02:58→16:29)
[2019-06-06] MEDS ORDERED: Aspirin 325 MG TAB PO SCH (08:00)
[2019-06-06] MEDS: Morphine IR 10 MG/5 ML UDCUP PO PRN ×2 (09:48→16:25)
--- NOTE | 2019-06-06 10:40 | CON ---
DATE OF CONSULTATION: 06/06/2019 INDICATION FOR CONSULTATION: A 63-year-old gentleman, who fell. He has had no previous cardiac history that he is aware of. He denied any chest pain. He denied any shortness of breath. In the emergency room, his EKG showed a sinus rhythm with a complete right bundle-branch block. Cardiac enzymes have remained negative. He denies any shortness of breath or chest pain. We were asked to see him apparently due to a fall. The patient is uncertain as to whether or not he passed out or not, he does not remember that. He says he has had no syncope in the past. However, he has a very long history of illegal drug use, he has used since 2005. He has used methadone for pain, he has also used since 2010. He said he had been using methamphetamines, cocaine, Dilaudid, whatever he could get. He also says that he chews fentanyl patches when he can get them for his pain. He has chronic pain syndrome. He has peripheral neuropathy. Apparently, he also has pain in his right shoulder. He said he fell on the shoulder and can have more pain. He has right knee pain after the fall and apparently is pretty much addicted to pain medications. He also has a history of liver cirrhosis when he was diagnosed with hepatitis C about eight years ago. The only cardiac abnormality thus far is the right bundle-branch block, but he has had no significant arrhythmias since being in the hospital. His heart rate is relatively reasonable in 60s and 70s. PAST MEDICAL HISTORY: Significant for liver cirrhosis, hepatitis C, and DVT. He has had apparently some type of gallbladder drain and thoracentesis. He has depression, psychosis, and post-traumatic stress disorder and also had a history of illicit drug use. FAMILY HISTORY: Noncontributory. MEDICATIONS: At home: 1. He apparently was just taking aspirin and also whatever illicit drugs he could find. 2. He has also been using methadone in the past. ALLERGIES: NONE. REVIEW OF SYSTEMS: He said when he coughs up phlegm every now and then and he said that was one of the reasons he came to the hospital because he coughed up phlegm and he fell. Uncertain as to whether any other indication as to why he came, he also said that he drove himself to the hospital. Otherwise, his 12-point review of systems is unremarkable. He did have some lower leg edema, which he said he was not really aware of, it was not a problem for him and uncertain as to how long that has been ongoing. He denied any other GI complaints. No urological complaints and he says he has no neurological complaints either. PHYSICAL EXAMINATION: GENERAL: Reveals a middle-aged gentleman, who is a somewhat poor historian, somewhat uncooperative during the evaluation. VITAL SIGNS: Show a blood pressure of 141/92, heart rate is 75 and regular, respiratory rate is 18, and he is afebrile. HEENT: Shows head to be normocephalic and atraumatic. Carotid pulses are present. I do not hear any bruits. He has very few teeth left. They were all broken off the roots and extremely poor cavities as most likely associated with his previous use of methamphetamines. CHEST: Clear to auscultation. There were no rales, rhonchi, or wheezing noted. The patient did not have any coughing during the evaluation. CARDIOVASCULAR: Reveals a regular rate and rhythm. I did not hear any significant murmurs, heaves, thrills, bruits, or rubs. ABDOMEN: Soft. I did not feel any significant masses. He has no tenderness. EXTREMITIES: Show no clubbing or cyanosis. He has 2+ lower extremity edema. Pedal pulses are present. Radial pulses are present. NEUROLOGIC: The patient is somewhat distant at times and again is a poor historian, but I could not elicit any gross focal motor deficits at this time. LABORATORY DATA: Shows a BNP of 99. No evidence of congestive heart failure. Troponin I's are negative. BUN was 4, creatinine was 0.59, blood sugar was 101, and potassium was 3.7. Hemoglobin is 16.2, WBC of 4.3, and platelet count of 101,000. INR is 1.2. His bilirubin was elevated at 2.7 and AST of 47. IMPRESSION AND PLAN: 1. Elderly gentleman, 63-year-old, who actually appears to be somewhat older than his stated age, who I suspect he has some drug-seeking behavior with continued use of an illegal pain medications. He did make the statement to me that the doctors were not given medications for his pain and he had other methods, where he would obtain pain medications and thus was chewing the fentanyl patches. 2. History of a fall, uncertain whether or not the patient had any syncope or not. He denied any codey syncope, but actually says he does not remember what happened, but he did drive himself to the hospital. 3. Liver cirrhosis and hepatitis C. This will be dealt with by the Primary Care Service or Gastroenterology. 4. Chronic pain syndrome, most likely he will need to be started on some type of medication while he is in the hospital and may need to be referred to some type of Pain Management Clinic, but he does need something for his pain. Apparently, he will seek other illegal methods to get his medications. 5. History of depression as well as post-traumatic stress disorder. This will also need to be dealt with by the Primary Care Service. At this time, we will await the results of the echocardiogram. If the echocardiogram does not show any significant evidence of cardiomyopathy, then I would have no further evaluation for this patient at this time. Job ID: [id number]
[2019-06-06] MEDS ORDERED: Naloxone HCl 0.4 mg/ml Vial IV PRN (17:06)
--- NOTE | 2019-06-06 21:54 | ULT ---
EXAM: Bilateral lower extremity venous Doppler PROVIDED CLINICAL HISTORY: Bilateral lower extremity edema FINDINGS: Grayscale and color Doppler sonography with spectral analysis was performed of the common femoral, fe moral, popliteal, posterior tibial, greater saphenous and profunda femoral veins bilaterally. The evaluated venous structures demonstrate no evidence for acute DVT. IMPRESSION: No sonographic evidence for acute lower extremity deep venous thrombosis.
[2019-06-07] MEDS: Sodium Chloride 0.9% 1,000 ML IV SCH ×3 (03:20→12:56)
[2019-06-07 05:21] LABS: Anion Gap 9 mmol/L (10-20); BUN (Urea Nitrogen) 9 mg/dL (8.4-25.7); Bilirubin, Total 1.9 mg/dL (0.2-1.2); Calc. Creatinine Clearance 197 mL/min (70-130); Carbon Dioxide 21 mmol/L (23-31); Chloride 107 mmol/L (98-107); Estimated GFR-MDRD Greater than 90; Glucose 109 mg/dL (80-115); Magnesium 1.6 mg/dL (1.6-2.6); Potassium 3.4 mmol/L (3.5-5.1); Sodium 134 mmol/L (136-145)
[2019-06-07 06:00] LABS: #Eosinphils 0.1 thou/uL (0.0-0.7); #Lymphocytes 0.8 thou/uL (1.20-3.40); #Monocytes 0.3 thou/uL (0.11-0.59); #Neutrophils 0.9 thou/uL (1.40-6.50); %Basophils 0.4 % (0.0-1.0); %Eosinophils 2.8 % (0.0-10.0); %Lymphocytes 39.2 % (21.0-51.0); %Monocytes 13.2 % (0.0-10.0); %Neutrophils 44.5 % (42.0-75.0); Hemoglobin 14.5 g/dL (14.0-18.0); Mean Corpuscular HGB CONC 35.5 g/dL (32.0-36.0); Mean Corpuscular Hemoglobin 32.1 pg (27.0-31.0); Mean Corpuscular Volume 90.4 fL (78.0-98.0); Mean Platelet Volume 7.7 fL (7.4-10.4); Platelet Count 58 thou/uL (130-400); RBC Distribution Width 13.3 % (11.5-14.5); Red Blood Cell (RBC) Count 4.52 mill/uL (4.70-6.10)
[2019-06-07 06:01] LABS: Band 5 % (5-11); Eosinophils 4 % (0-10); Lymphocytes 33 % (21-51); MDiff Complete? YES; Monocytes 9 % (0-10); Neutrophil 45 % (42-75); Platelet Morphology Comment Appears Decreased; RBC Morphology Normal; Reactive Lymphocytes 4 % (0-10)
[2019-06-07] MEDS ORDERED: Aspirin 81 mg Enteric Coated Tablet PO SCH (09:00)
--- NOTE | 2019-06-07 11:40 | PDOC.CPN ---
- Subjective Date: 06/07/19 Time: 11:40 Interval history: The pt seen and examined. No overnight events. No cardiac complaints. - Objective Allergies/Adverse Reactions: Allergies Allergy/AdvReac Type Severity Reaction Status Date / Time No Known Allergies Allergy Verified 06/06/19 00:08 Visit Medications: Current Medications Aspirin (Ecotrin) 81 mg PO DAILY JOI Last Admin: 06/07/19 07:56 Dose: 81 mg Sodium Chloride (Normal Saline 0.9%) 1,000 mls @ 100 mls/hr IV .Q10H JOI Last Admin: 06/07/19 07:56 Dose: Not Given Morphine Sulfate (Morphine Ir) 10 mg PO Q6H PRN PRN Reason: pain Last Admin: 06/06/19 16:25 Dose: 10 mg Naloxone HCl (Narcan) 0.4 mg IV ONE PRN PRN Reason: Opiate Reversal Stop: 06/16/19 17:07 Vital Signs & Weight: Vital Signs Temp Pulse Resp BP BP Pulse Ox 06/07/19 08:00 98.3 F 71 20 138/83 97 06/07/19 03:20 64 18 127/75 94 L Weight 242 lb 3.2 oz - Physical Exam General: alert & oriented x3 HEENT: mucus membranes moist Neck: supple neck Cardiac: regular rate and rhythm, S1/S2 Lungs: clear to auscultation, decreased breath sounds Neuro: cranial nerve 2-12 intact - Labs Result Diagrams: 06/07/19 04:33 06/07/19 04:33 Troponin/CKMB Troponin I 0.019 ng/mL (< 0.028) 06/06/19 02:19 - Telemetry Sinus rhythms and dysrhythmias: sinus rhythm - Assessment/Plan Assessment/Plan: 1. S/p Fall - Ortho is negative and Echo showed normal; the episode is likely not from Cardio-etiology. 2. Hx of DVT 3. Hep C with cirrhosis 4. Depression 5. PTSD 6. Illicit drug abuse MAR reviewed * Echo on 06/06/2019 with EF 60-65%, grade I dd, mild-mod LAE, mild MR and TN
[2019-06-07 12:14] VITALS: BP 132/84; TEMP 98.6
[2019-06-07] MEDS ORDERED: Acetaminophen 325 MG TAB PO PRN (12:39)
[2019-06-07] MEDS ORDERED: traMADol HCl 50 MG TAB PO PRN (12:39)
[2019-06-07] MEDS ORDERED: Magnesium Sulfate 2 GM in Sodium Chloride 0.9% 100 ML IVPB SCH (13:00)
[2019-06-07] MEDS ORDERED: Magnesium 2 GM/50 ML 2 GM in Premix Bag 1 BAG IVPB SCH (13:00)
[2019-06-07] MEDS ORDERED: Potassium Chloride 10 MEQ TAB PO SCH (17:00)
--- NOTE | 2019-06-08 08:35 | DIS ---
DATE OF ADMISSION: 06/06/2019 DATE OF DISCHARGE: 06/07/2019 The patient left against medical advice. BRIEF HOSPITAL COURSE: The patient is a 63-year-old male with chronic hepatitis C with cirrhosis, presented to the emergency room with a syncopal episode on July 05, 2019. He complained of recurrent syncope over the last 3 days prior to admission. His CT angiogram of the chest was negative for pulmonary embolism. He was monitored on telemetry. He was evaluated by Cardiology as well. Per Cardiology, the syncope was unlikely to be cardiac in origin. His echocardiogram showed ejection fraction of 60% to 65% with 1 of 3 diastolic dysfunction. Bilateral lower extremity Doppler was negative for DVT. The patient signed against medical advice on June 07, 2019. I was unable to evaluate the patient on the day of discharge. FINAL DIAGNOSES: 1. Recurrent syncope of unclear etiology. 2. Chronic hepatitis C with cirrhosis. 3. Illicit drug abuse. 4. Posttraumatic stress disorder. 5. Depression without any suicidal ideation this admission. 6. Abnormal CT angiogram of the chest. Primary care physician advised to follow. Job ID: [id number] MTDD
== END 2019-06-07 16:41 | disposition left against medical advice (07) ==
LOC: ERS 15:53 → 2SW 06-06 01:11
PROVIDERS: ADMIT Internal Medicine; ATTEND Internal Medicine
DX: R55 Syncope and collapse (principal); K74.60 Unspecified cirrhosis of liver; B18.2 Chronic viral hepatitis C; F19.10 Other psychoactive substance abuse, uncomplicated; F43.10 Post-traumatic stress disorder, unspecified; F32.9 Major depressive disorder, single episode, unspecified; R93.89 Abnormal findings on diagnostic imaging of other specified body structures; I45.10 Unspecified right bundle-branch block; F29 Unspecified psychosis not due to a substance or known physiological condition; G89.4 Chronic pain syndrome; G62.9 Polyneuropathy, unspecified; Z53.29 Procedure and treatment not carried out because of patient's decision for other reasons; Z79.82 Long term (current) use of aspirin
CPT/HCPCS: 71045; 71275; 73030; 73564; 80048; 80053; 82247; 82248; 82550; 83735; 83880; 84484 ×3; 85025 ×2; 85610; 85730; 93005; 93306; 93970; 94760 ×2; 96360; 96361 ×4; 96365; 96367; 96375; 99285; G0378 ×3; 36415; 81003; 81015; J0456; J0696; J3475; J3490; J7050; Q9967

== ENCOUNTER 2019-07-25 14:50 | Emergency (ER) | payer MEDICARE ==
[2019-07-25] MEDS ORDERED: Acetaminophen 650 MG Suppository ONE (15:17)
[2019-07-25] MEDS ORDERED: Cefepime 2 GM VIAL ONE (15:30)
[2019-07-25] MEDS ORDERED: Clindamycin/D5W 900 mg/50 ml Premix Bag ONE (15:30)
[2019-07-25 15:36] LABS: #Lymphocytes 1.1 thou/uL (1.20-3.40); #Monocytes 0.6 thou/uL (0.11-0.59); #Neutrophils 3.7 thou/uL (1.40-6.50); %Basophils 0.6 % (0.0-1.0); %Eosinophils 0.7 % (0.0-10.0); %Lymphocytes 19.3 % (21.0-51.0); %Monocytes 11.4 % (0.0-10.0); %Neutrophils 68.1 % (42.0-75.0); Mean Corpuscular HGB CONC 34.3 g/dL (32.0-36.0); Mean Corpuscular Hemoglobin 31.4 pg (27.0-31.0); Mean Corpuscular Volume 91.5 fL (78.0-98.0); Mean Platelet Volume 7.9 fL (7.4-10.4); Platelet Count 95 thou/uL (130-400); RBC Distribution Width 13.1 % (11.5-14.5); Red Blood Cell (RBC) Count 5.09 mill/uL (4.70-6.10); White Blood Cell (WBC) Count 5.5 thou/uL (4.8-10.8)
[2019-07-25 15:55] LABS: ALT (SGPT) 45 U/L (8-55); AST (SGOT) 145 U/L (5-34); Alkaline Phosphatase 97 U/L (40-110); Anion Gap 12 mmol/L (10-20); BUN (Urea Nitrogen) 8 mg/dL (8.4-25.7); Bilirubin, Total 4.9 mg/dL (0.2-1.2); Calc. Creatinine Clearance 0 mL/min (70-130); Calcium 7.9 mg/dL (7.8-10.44); Carbon Dioxide 22 mmol/L (23-31); Chloride 101 mmol/L (98-107); Estimated GFR-MDRD Greater than 90; Globulin 3.9 g/dL (2.4-3.5); Glucose 123 mg/dL (80-115); Potassium 3.2 mmol/L (3.5-5.1); Protein, Total 6.9 g/dL (5.8-8.1); Sodium 132 mmol/L (136-145)
[2019-07-25 16:04] LABS: Bacteria/HPF None Seen HPF (None Seen); Bilirubin Negative (Negative); Blood, Urine 1+ (Negative); Clarity Clear (Clear); Glucose, Urine (Dipstick) Normal (Negative); Leukocyte Negative Leu/uL (Negative); Mucous/LPF 1+ LPF (<2+); Nitrite Negative (Negative); Protein, Urine (Dipstick) 30 mg/dL (Neg-Trace); RBC/HPF 0-3 HPF (0-3); Squamous Epithelial None Seen HPF (0-3); WBC/HPF 0-3 HPF (0-3)
--- NOTE | 2019-07-25 16:51 | ULT ---
ULTRASOUND RIGHT LOWER EXTREMITY VENOUS DOPPLER: 07/25/19 HISTORY: Lower extremity pain. COMPARISON: None. FINDINGS: Ultrasound anders scale, color Doppler and spectral analysis right lower extremity venous system is per formed. The common femoral, femoral, proximal portions of the greater saphenous and deep femoral vein s as well as the popliteal and posterior tibial veins were interrogated. There is a small peripheral web in the right common femoral vein as well as the proximal and mid femo ral vein. Partial thrombus, peripheral, in the right popliteal vein. IMPRESSION: Peripheral chronic thrombus of the right lower extremity involving the common femoral, femoral, as we ll as the popliteal vein. Findings have slightly improved from the 06/06/19 exam. Code CR, the physician notified of the findings via the technologist at the time of the exam. POS: HOME
--- NOTE | 2019-07-25 16:57 | RAD ---
CHEST ONE VIEW: 07/25/19 HISTORY: Chest pain. COMPARISON: Radiograph 06/05/19. Heart size is mildly enlarged. There is fullness of the vascular pedicle. Mild pulmonary venous conge stion. No pneumothorax. IMPRESSION: Cardiomegaly with pulmonary venous congestion and fullness of the vascular pedicle. POS: HOME
== END 2019-07-25 17:51 | disposition left against medical advice (07) ==
LOC: ERS 14:50
DX: A41.9 Sepsis, unspecified organism (principal); R65.21 Severe sepsis with septic shock; I82.411 Acute embolism and thrombosis of right femoral vein; I82.431 Acute embolism and thrombosis of right popliteal vein; L03.115 Cellulitis of right lower limb; K74.60 Unspecified cirrhosis of liver; F43.10 Post-traumatic stress disorder, unspecified; F17.210 Nicotine dependence, cigarettes, uncomplicated
CPT/HCPCS: 71045; 80053; 83605; 83880; 84484; 85025; 87040; 87086; 93005; 93971; J0692; J3370; J3490; J7030; 36415; 51701; 81003; 81015; 96361; 96365; 96367

== ENCOUNTER 2019-08-03 14:32 | Emergency (ER) | payer MEDICARE ==
[2019-08-03] MEDS ORDERED: Ketorolac Tromethamine 30 MG/ML VIAL ONE (15:38)
--- NOTE | 2019-08-03 16:32 | RAD ---
TWO VIEWS LEFT HIP: Date: 08-03-2019 Provided Clinical History: Left hip pain. FINDINGS: No evidence for fracture or other acute osseous abnormality. If there is persistent clinical concern, conservative management and follow up imaging are advised. IMPRESSION: As above. POS: RACHELLE
--- NOTE | 2019-08-03 16:35 | RAD ---
PELVIC RADIOGRAPH: Date: 08-03-2019 Provided Clinical History: Bilateral leg pain. FINDINGS: No evidence for fracture or other acute osseous abnormality. If there persistent clinical concern, co nservative management and follow up imaging are advised. IMPRESSION: As above. POS: RACHELLE
== END 2019-08-03 17:26 | disposition home or self-care (01) ==
LOC: ERS 14:32
DX: M79.662 Pain in left lower leg (principal); M79.661 Pain in right lower leg; F32.9 Major depressive disorder, single episode, unspecified; F43.10 Post-traumatic stress disorder, unspecified; F17.210 Nicotine dependence, cigarettes, uncomplicated; Z86.718 Personal history of other venous thrombosis and embolism
CPT/HCPCS: 72170; 96372; J1885

== ENCOUNTER 2020-04-19 10:08 | Emergency (ER) | payer MEDICARE ==
[2020-04-19] MEDS ORDERED: Ondansetron PF 4 MG/2 ML Vial ONE (11:02)
[2020-04-19] MEDS ORDERED: Fentanyl 100 MCG/2 ML VIAL ONE (11:02)
--- NOTE | 2020-04-19 11:04 | ULT ---
EXAM: US Gallbladder RUQ PROVIDED CLINICAL HISTORY: Abdominal pain COMPARISON: Right upper quadrant ultrasound 10/17/2018 CT abdomen and pelvis 11/01/2018 FINDINGS: The visualized portions of the pancreas and IVC appear normal. The liver demonstrates a cirrhotic morphology. There is a 1.1 cm hypoechoic mass involving the left h epatic lobe, incompletely characterized sonographically. There is a 1.3 cm cystlike structure involving the right hepatic lobe. The gallbladder demonstrates no stones, wall thickening or pericholecystic fluid. The common duct is nondilated. The right kidney demonstrates no evidence for hydronephrosis or mass. IMPRESSION: 1. No evidence for an acute process. 2. Foci of diminished echogenicity are demonstrated involving the liver, incompletely characterized o n the basis of this study but demonstrated on prior examinations and without significant interval change apparent.
[2020-04-19 11:21] LABS: ALT (SGPT) 26 U/L (8-55); AST (SGOT) 59 U/L (5-34); Albumin 2.6 g/dL (3.4-4.8); Alkaline Phosphatase 128 U/L (40-110); Anion Gap 11 mmol/L (10-20); BUN (Urea Nitrogen) 8 mg/dL (8.4-25.7); Calc. Creatinine Clearance 0 mL/min (70-130); Calcium 7.4 mg/dL (7.8-10.44); Carbon Dioxide 20 mmol/L (23-31); Chloride 105 mmol/L (98-107); Globulin 3.9 g/dL (2.4-3.5); Glucose 94 mg/dL (80-115); Lipase 19 U/L (8-78); Protein, Total 6.5 g/dL (5.8-8.1)
[2020-04-19 11:36] LABS: Sodium 133 mmol/L (136-145)
--- NOTE | 2020-04-19 11:54 | CT ---
CT Abdomen Pelvis W Con History: Abdominal pain Comparison: Reference is made to ultrasound April 19, 2020 Findings: Lung bases are clear. No pericardial effusion. Cholelithiasis without cholecystitis. Severe hepatic cirrhosis with small contracted nodular liver. P eripheral wedge-shaped hypodensity hepatic segment 8 may reflect fibrosis. Portal vein is patent. Splenomegaly with large portosystemic collaterals. Hypodensity interpolar left kidney likely a cyst. No hydronephrosis. No free intraperitoneal gas or f luid. Large superior rectal draining veins from shunting. The appendix is visualized and is normal. High-grade degenerative disease lumbar spine. Impression: 1. High grade hepatic cirrhosis with wedge-shaped likely fibrosis within hepatic segment 8, similar t o due to 2019 exam. 2. Cholelithiasis without cholecystitis. 3. Splenomegaly with portal hypertension and extensive portosystemic shunting..
[2020-04-19 11:56] LABS: Band 1 % (5-11); Hemoglobin 16.2 g/dL (14.0-18.0); Lymphocytes 33 % (21-51); MDiff Complete? YES; Mean Corpuscular HGB CONC 33.6 g/dL (32.0-36.0); Mean Corpuscular Hemoglobin 31.5 pg (27.0-31.0); Mean Corpuscular Volume 93.9 fL (78.0-98.0); Mean Platelet Volume 7.3 fL (7.4-10.4); Monocytes 4 % (0-10); Neutrophil 45 % (42-75); Platelet Count 109 thou/uL (130-400); Platelet Morphology Comment Appears Decreased; RBC Distribution Width 14.6 % (11.5-14.5); RBC Morphology Normal; Reactive Lymphocytes 17 % (0-10); Red Blood Cell (RBC) Count 5.13 mill/uL (4.70-6.10); White Blood Cell (WBC) Count 4.5 thou/uL (4.8-10.8)
[2020-04-19 13:17] LABS: Bilirubin Negative (Negative); Blood, Urine Negative (Negative); Clarity Clear (Clear); Glucose, Urine (Dipstick) Normal (Negative); Ketone, Urine Negative (Negative); Leukocyte Negative Leu/uL (Negative); Nitrite Negative (Negative); Protein, Urine (Dipstick) Negative (Neg-Trace); Specific Gravity, Urine 1.034 (1.002-1.036); Urobilinogen 3 mg/dL (Less than 2)
[2020-04-19] MEDS ORDERED: Iopamidol-370 76% 500 ML 1 ML ONE (13:48)
[2020-04-19] MEDS ORDERED: Potassium Chloride 20 MEQ TAB ONE (13:51)
== END 2020-04-19 14:20 | disposition home or self-care (01) ==
LOC: ERS 10:08
DX: R10.11 Right upper quadrant pain (principal); E87.6 Hypokalemia; K74.60 Unspecified cirrhosis of liver; F17.210 Nicotine dependence, cigarettes, uncomplicated; Z86.718 Personal history of other venous thrombosis and embolism; Z79.82 Long term (current) use of aspirin
CPT/HCPCS: 36415; 74177; 76705; 80053; 81003; 83690; 85025; J2405; J3010

== ENCOUNTER 2020-04-19 15:45 | Emergency (ER) | payer MEDICARE ==
[2020-04-19 17:14] LABS: #Basophils 0.1 thou/uL (0.0-0.2); #Eosinphils 0.1 thou/uL (0.0-0.7); #Lymphocytes 1.3 thou/uL (1.20-3.40); #Monocytes 0.6 thou/uL (0.11-0.59); #Neutrophils 2.7 thou/uL (1.40-6.50); %Basophils 1.5 % (0.0-1.0); %Eosinophils 1.7 % (0.0-10.0); %Monocytes 13.1 % (0.0-10.0); %Neutrophils 56.6 % (42.0-75.0); Hemoglobin 16.4 g/dL (14.0-18.0); Mean Corpuscular HGB CONC 34.8 g/dL (32.0-36.0); Mean Corpuscular Hemoglobin 32.1 pg (27.0-31.0); Mean Corpuscular Volume 92.4 fL (78.0-98.0); Mean Platelet Volume 7.2 fL (7.4-10.4); Platelet Count 118 thou/uL (130-400); RBC Distribution Width 14.8 % (11.5-14.5); Red Blood Cell (RBC) Count 5.11 mill/uL (4.70-6.10); White Blood Cell (WBC) Count 4.8 thou/uL (4.8-10.8)
[2020-04-19 17:31] LABS: Acetaminophen Less than 6.0 mcg/mL (10.0-30.0); Alcohol Less than 10 mg/dL (Less than 10); Salicylate Less than 8.0 mg/dL (15.0-30.0)
[2020-04-19 17:32] LABS: ALT (SGPT) 29 U/L (8-55); AST (SGOT) 77 U/L (5-34); Albumin 2.7 g/dL (3.4-4.8); Alkaline Phosphatase 133 U/L (40-110); Anion Gap 13 mmol/L (10-20); BUN (Urea Nitrogen) 10 mg/dL (8.4-25.7); Bilirubin, Total 3.2 mg/dL (0.2-1.2); Calc. Creatinine Clearance 0 mL/min (70-130); Calcium 7.6 mg/dL (7.8-10.44); Carbon Dioxide 19 mmol/L (23-31); Chloride 108 mmol/L (98-107); Globulin 4.4 g/dL (2.4-3.5); Glucose 95 mg/dL (80-115); Potassium 3.8 mmol/L (3.5-5.1); Protein, Total 7.1 g/dL (5.8-8.1); Sodium 136 mmol/L (136-145)
--- NOTE | 2020-04-23 11:15 | EKG ---
Test Reason : Blood Pressure : / mmHG Vent. Rate : 063 BPM Atrial Rate : 063 BPM P-R Int : 182 ms QRS Dur : 134 ms QT Int : 480 ms P-R-T Axes : 026 -62 005 degrees QTc Int : 491 ms Normal sinus rhythm Left axis deviation Non-specific intra-ventricular conduction block Cannot rule out Septal infarct , age undetermined Inferior infarct , age undetermined Abnormal ECG Confirmed by WESLEY DALY ([id number]), editor producer HUSAM HEARD ([id number]) on 04/23/2020 11:15:20 AM Referred By: Confirmed By:WESLEY DALY
== END 2020-04-19 20:35 | disposition home or self-care (01) ==
LOC: ERS 15:45
DX: F43.20 Adjustment disorder, unspecified (principal); F17.210 Nicotine dependence, cigarettes, uncomplicated
CPT/HCPCS: 36415; 74177; 76705; 80053; 80307; 81003; 83690; 84443; 85025; 93005; J2405; J3010

== ENCOUNTER 2020-04-21 11:28 | Emergency (ER) | payer MEDICARE ==
[2020-04-21 12:24] LABS: #Basophils 0.1 thou/uL (0.0-0.2); #Eosinphils 0.2 thou/uL (0.0-0.7); #Lymphocytes 2.2 thou/uL (1.20-3.40); #Monocytes 0.7 thou/uL (0.11-0.59); #Neutrophils 2.6 thou/uL (1.40-6.50); %Basophils 1.8 % (0.0-1.0); %Lymphocytes 38.2 % (21.0-51.0); %Monocytes 12.4 % (0.0-10.0); %Neutrophils 44.6 % (42.0-75.0); Hemoglobin 15.1 g/dL (14.0-18.0); Mean Corpuscular HGB CONC 35.1 g/dL (32.0-36.0); Mean Corpuscular Hemoglobin 32.2 pg (27.0-31.0); Mean Corpuscular Volume 91.7 fL (78.0-98.0); Mean Platelet Volume 7.4 fL (7.4-10.4); Platelet Count 119 thou/uL (130-400); RBC Distribution Width 14.7 % (11.5-14.5); Red Blood Cell (RBC) Count 4.69 mill/uL (4.70-6.10); White Blood Cell (WBC) Count 5.8 thou/uL (4.8-10.8)
[2020-04-21 12:39] LABS: ALT (SGPT) 25 U/L (8-55); AST (SGOT) 61 U/L (5-34); Acetaminophen Less than 6.0 mcg/mL (10.0-30.0); Albumin 2.5 g/dL (3.4-4.8); Alcohol Less than 10 mg/dL (Less than 10); Alkaline Phosphatase 121 U/L (40-110); Anion Gap 10 mmol/L (10-20); BUN (Urea Nitrogen) 7 mg/dL (8.4-25.7); Bilirubin, Total 1.8 mg/dL (0.2-1.2); CK (CPK) 89 U/L (30-200); Calc. Creatinine Clearance 0 mL/min (70-130); Calcium 7.7 mg/dL (7.8-10.44); Carbon Dioxide 21 mmol/L (23-31); Chloride 108 mmol/L (98-107); Globulin 3.8 g/dL (2.4-3.5); Glucose 103 mg/dL (80-115); Lipase 34 U/L (8-78); Potassium 3.1 mmol/L (3.5-5.1); Protein, Total 6.3 g/dL (5.8-8.1); Sodium 136 mmol/L (136-145)
--- NOTE | 2020-04-21 13:03 | ULT ---
GALLBLADDER ULTRASOUND: HISTORY: Right upper quadrant abdominal pain FINDINGS: Comparison is made with the gallbladder ultrasound and CT abdomen and pelvis from 04/27/2020. Small cysts in the liver are again seen. Changes of cirrhosis of the liver are redemonstrated. No abn ormal biliary ductal dilatation is identified. The common duct measures 5 mm in diameter. The gallbladder demonstrates calculi and multiple thick septations. The right kidney is normal. The pancr eas is not satisfactorily visualized. No free fluid is seen in the Brooks's pouch.. IMPRESSION: 1. Cirrhosis the liver with liver cysts. 2. Cholelithiasis.
[2020-04-21] MEDS ORDERED: Potassium Chloride 20 MEQ TAB ONE (13:29)
[2020-04-21 13:32] LABS: Bilirubin Negative (Negative); Blood, Urine Negative (Negative); Clarity Clear (Clear); Glucose, Urine (Dipstick) Normal (Negative); Ketone, Urine Negative (Negative); Leukocyte Negative Leu/uL (Negative); Nitrite Negative (Negative); Protein, Urine (Dipstick) Negative (Neg-Trace)
[2020-04-21 13:33] LABS: Specific Gravity, Urine 1.014 (1.002-1.036)
[2020-04-21 13:41] LABS: Amphetamine Not Detected (NotDetected); Barbiturates Screen Not Detected (NotDetected); Benzodiazepine Screen Detected (NotDetected); Cocaine Metabolite Screen Not Detected (NotDetected); Medtox Control Line Valid? VALID (VALID); Medtox Reader # READER 4; Methadone Not Detected (NotDetected); Methamphetamine Not Detected (NotDetected); Opiate Screen Not Detected (NotDetected); Oxycodone Screen Not Detected (NotDetected); Phencyclidine (PCP) Not Detected (NotDetected); THC/Cannabinoid Screen Not Detected (NotDetected); Tricyclic Screen Not Detected (NotDetected)
[2020-04-22] MEDS ORDERED: Ibuprofen 200 MG TAB ONE (15:42)
[2020-04-23 10:34] LABS: SARS-CoV-2 NAA Rapid Test Not Detected (NotDetected)
== END 2020-04-23 11:10 ==
LOC: ERS 11:28
DX: F32.9 Major depressive disorder, single episode, unspecified (principal); R10.811 Right upper quadrant abdominal tenderness; K74.60 Unspecified cirrhosis of liver; F17.210 Nicotine dependence, cigarettes, uncomplicated; Z79.82 Long term (current) use of aspirin; Z86.718 Personal history of other venous thrombosis and embolism
CPT/HCPCS: 76705; 80306; 80307; 81003; 82550; 83690; 99285; U0002; 36415; 80053; 84443; 85025

== ENCOUNTER 2020-12-27 12:17 | Emergency (ER) | payer MEDICARE ==
[2020-12-27 14:17] LABS: #Basophils 0.1 thou/uL (0.0-0.2); #Eosinphils 0.1 thou/uL (0.0-0.7); #Lymphocytes 1.1 thou/uL (1.20-3.40); #Monocytes 0.4 thou/uL (0.11-0.59); #Neutrophils 2.6 thou/uL (1.40-6.50); %Basophils 1.6 % (0.0-1.0); %Lymphocytes 25.4 % (21.0-51.0); %Monocytes 10.3 % (0.0-10.0); %Neutrophils 60.6 % (42.0-75.0); Mean Corpuscular HGB CONC 35.1 g/dL (32.0-36.0); Mean Corpuscular Hemoglobin 33.4 pg (27.0-31.0); Mean Corpuscular Volume 95.3 fL (78.0-98.0); Mean Platelet Volume 7.3 fL (7.4-10.4); Platelet Count 114 thou/uL (130-400); RBC Distribution Width 13.9 % (11.5-14.5); Red Blood Cell (RBC) Count 5.08 mill/uL (4.70-6.10); White Blood Cell (WBC) Count 4.2 thou/uL (4.8-10.8)
[2020-12-27 14:47] LABS: ALT (SGPT) 34 U/L (8-55); AST (SGOT) 65 U/L (5-34); Albumin 2.7 g/dL (3.4-4.8); Alkaline Phosphatase 161 U/L (40-110); Anion Gap 13 mmol/L (10-20); BUN (Urea Nitrogen) 6 mg/dL (8.4-25.7); Bilirubin, Total 3.5 mg/dL (0.2-1.2); Calc. Creatinine Clearance 0 mL/min (70-130); Calcium 8.2 mg/dL (7.8-10.44); Carbon Dioxide 20 mmol/L (23-31); Chloride 107 mmol/L (98-107); Glucose 108 mg/dL (80-115); Potassium 3.8 mmol/L (3.5-5.1); Protein, Total 6.7 g/dL (5.8-8.1); Sodium 136 mmol/L (136-145)
== END 2020-12-27 18:16 | disposition home or self-care (01) ==
LOC: ERS 12:17
DX: L97.529 Non-pressure chronic ulcer of other part of left foot with unspecified severity (principal); L03.032 Cellulitis of left toe; Z79.82 Long term (current) use of aspirin; F17.210 Nicotine dependence, cigarettes, uncomplicated
CPT/HCPCS: 36415; 80053; 85025; 87040

== ENCOUNTER 2021-11-22 06:45 | Outpatient (CLI) | payer OTHER | END 2021-11-22 06:46 | disposition home or self-care (01) | LOC: BICULT 06:45 | PROVIDERS: ATTEND Internal Medicine Gastroenterology | DX: Z12.11 Encounter for screening for malignant neoplasm of colon (principal); K74.60 Unspecified cirrhosis of liver; B18.2 Chronic viral hepatitis C; K76.89 Other specified diseases of liver | CPT/HCPCS: 76705 ==

== ENCOUNTER 2021-11-30 11:18 | Outpatient (CLI) | payer OTHER, MEDICAID | END 2021-11-30 11:19 | disposition home or self-care (01) | LOC: BICCT 11:18 | PROVIDERS: ATTEND Family Medicine | DX: Z12.2 Encounter for screening for malignant neoplasm of respiratory organs (principal); F17.210 Nicotine dependence, cigarettes, uncomplicated; K74.60 Unspecified cirrhosis of liver; R16.1 Splenomegaly, not elsewhere classified | CPT/HCPCS: 71271 ==

== ENCOUNTER 2021-12-13 14:19 | Outpatient (CLI) | payer OTHER, MEDICAID ==
[~2021-12-13 14:19] MED LIST changes: +Iopamidol 370 76% 100 ML VIAL ONE; -Iopamidol-370 76% 500 ML 1 ML ONE
== END 2021-12-13 14:20 | disposition home or self-care (01) ==
LOC: BICCT 14:19
PROVIDERS: ATTEND Internal Medicine Gastroenterology
DX: K74.60 Unspecified cirrhosis of liver (principal); M25.512 Pain in left shoulder; M25.511 Pain in right shoulder; M19.012 Primary osteoarthritis, left shoulder; M19.011 Primary osteoarthritis, right shoulder; Z98.890 Other specified postprocedural states; Z87.81 Personal history of (healed) traumatic fracture
CPT/HCPCS: 74170; 82565; Q9967

== ENCOUNTER 2022-04-26 03:07 | Inpatient (IN) | payer OTHER, MEDICAID ==
[2022-04-26 04:13] LABS: ALT (SGPT) 42 U/L (8-55); AST (SGOT) 90 U/L (5-34); Albumin 2.5 g/dL (3.4-4.8); Alkaline Phosphatase 101 U/L (40-110); Anion Gap 10 mmol/L (10-20); BUN (Urea Nitrogen) 7 mg/dL (8.4-25.7); Bilirubin, Total 5.4 mg/dL (0.2-1.2); Calc. Creatinine Clearance 0 mL/min (70-130); Calcium 7.9 mg/dL (7.8-10.44); Carbon Dioxide 20 mmol/L (23-31); Chloride 107 mmol/L (98-107); Estimated GFR 101; Globulin 4.7 g/dL (2.4-3.5); Glucose 118 mg/dL (80-115); Lipase 36 U/L (8-78); Potassium 4.2 mmol/L (3.5-5.1); Protein, Total 7.2 g/dL (5.8-8.1); Sodium 133 mmol/L (136-145)
[2022-04-26] MEDS ORDERED: Morphine 4 MG/ML VIAL ONE (04:20)
[2022-04-26] MEDS ORDERED: Ondansetron PF 4 MG/2 ML Vial ONE (04:20)
[2022-04-26 04:37] LABS: #Eosinphils 0.1 thou/uL (0.0-0.7); #Lymphocytes 1.1 thou/uL (1.20-3.40); #Monocytes 0.5 thou/uL (0.11-0.59); %Basophils 0.8 % (0.0-1.0); %Eosinophils 1.4 % (0.0-10.0); %Lymphocytes 18.7 % (21.0-51.0); %Monocytes 9.5 % (0.0-10.0); %Neutrophils 69.6 % (42.0-75.0); Hemoglobin 16.1 g/dL (14.0-18.0); Mean Corpuscular HGB CONC 34.8 g/dL (32.0-36.0); Mean Corpuscular Hemoglobin 33.6 pg (27.0-31.0); Mean Corpuscular Volume 96.5 fl (78.0-98.0); Mean Platelet Volume 7.5 fL (7.4-10.4); Platelet Count 97 10x3/uL (130-400); Platelet Morphology Comment Appears Decreased; RBC Distribution Width 13.2 % (11.5-14.5); White Blood Cell (WBC) Count 5.7 10x3/uL (4.8-10.8)
[2022-04-26] MEDS ORDERED: Piperacillin/Tazobactam 4.5 GM VIAL ONE (06:35)
[2022-04-26 07:15] LABS: INR-International Normal Ratio 1.3; PTT 36.1 sec (22.9-36.1); Prothrombin Time 16.2 sec (12.0-14.7)
[2022-04-26] MEDS ORDERED: Ondansetron ODT 4 MG TAB PO PRN (08:03)
[2022-04-26] MEDS ORDERED: Ondansetron PF 4 MG/2 ML Vial IVP PRN (08:03)
[2022-04-26] MEDS ORDERED: Acetaminophen 325 MG TAB PO PRN (08:03)
[2022-04-26 09:37] LABS: SARS-CoV-2 NAA Rapid Test Not Detected (NotDetected)
[2022-04-26] MEDS: Nicotine 14 MG PATCH TD SCH (09:56)
[2022-04-26] MEDS: Sodium Chloride 0.9% 1,000 ML IV SCH (09:56)
[2022-04-26] MEDS ORDERED: Morphine 2 MG/ML VIAL ONE (10:03)
[2022-04-26] MEDS: Morphine 2 MG/ML VIAL SLOW IVP PRN (10:06)
[2022-04-26] MEDS ORDERED: Piperacillin/Tazobactam 3.375 GM in Sodium Chloride 0.9% 100 ML IVPB SCH (12:00)
[2022-04-26] MEDS ORDERED: Piperacillin/Tazobactam 3.375 GM VIAL ONE (13:40)
[2022-04-26] MEDS: Piperacillin/Tazobactam 3.375 GM in Sodium Chloride 0.9% 100 ML IVPB SCH ×2 (13:49→23:35)
[2022-04-26] MEDS ORDERED: Iopamidol-370 76% 500 ML 1 ML ONE (15:21)
[2022-04-26 18:36] LABS: #Eosinphils 0.1 thou/uL (0.0-0.7); #Lymphocytes 1.3 thou/uL (1.20-3.40); #Monocytes 0.9 thou/uL (0.11-0.59); #Neutrophils 6.4 thou/uL (1.40-6.50); %Basophils 0.6 % (0.0-1.0); %Monocytes 9.9 % (0.0-10.0); %Neutrophils 73.5 % (42.0-75.0); Hemoglobin 14.9 g/dL (14.0-18.0); Mean Corpuscular HGB CONC 35.1 g/dL (32.0-36.0); Mean Corpuscular Hemoglobin 34.1 pg (27.0-31.0); Mean Corpuscular Volume 97.1 fl (78.0-98.0); Platelet Count 91 10x3/uL (130-400); RBC Distribution Width 13.2 % (11.5-14.5); Red Blood Cell (RBC) Count 4.37 mill/uL (4.70-6.10); White Blood Cell (WBC) Count 8.7 10x3/uL (4.8-10.8)
[2022-04-27] MEDS: Morphine 2 MG/ML VIAL SLOW IVP PRN ×5 (00:53→18:23)
[2022-04-27 01:14] VITALS: BMI 38.0
[2022-04-27] MEDS: Piperacillin/Tazobactam 3.375 GM in Sodium Chloride 0.9% 100 ML IVPB SCH ×3 (05:07→22:30)
[2022-04-27 06:02] LABS: #Eosinphils 0.2 thou/uL (0.0-0.7); #Lymphocytes 1.7 thou/uL (1.20-3.40); #Monocytes 1.1 thou/uL (0.11-0.59); #Neutrophils 5.4 thou/uL (1.40-6.50); %Basophils 0.5 % (0.0-1.0); %Eosinophils 2.2 % (0.0-10.0); %Lymphocytes 20.2 % (21.0-51.0); %Monocytes 12.9 % (0.0-10.0); %Neutrophils 64.2 % (42.0-75.0); Hemoglobin 15.2 g/dL (14.0-18.0); Mean Corpuscular HGB CONC 34.9 g/dL (32.0-36.0); Mean Corpuscular Hemoglobin 33.9 pg (27.0-31.0); Mean Corpuscular Volume 97.3 fl (78.0-98.0); Mean Platelet Volume 7.1 fL (7.4-10.4); Platelet Count 88 10x3/uL (130-400); RBC Distribution Width 13.2 % (11.5-14.5); Red Blood Cell (RBC) Count 4.47 mill/uL (4.70-6.10); White Blood Cell (WBC) Count 8.4 10x3/uL (4.8-10.8)
[2022-04-27 06:21] LABS: ALT (SGPT) 36 U/L (8-55); AST (SGOT) 62 U/L (5-34); Albumin 2.1 g/dL (3.4-4.8); Alkaline Phosphatase 97 U/L (40-110); Anion Gap 9 mmol/L (10-20); BUN (Urea Nitrogen) 8 mg/dL (8.4-25.7); Bilirubin, Total 5.9 mg/dL (0.2-1.2); Calc. Creatinine Clearance 201 mL/min (70-130); Calcium 7.7 mg/dL (7.8-10.44); Carbon Dioxide 19 mmol/L (23-31); Chloride 106 mmol/L (98-107); Estimated GFR 104; Globulin 4.3 g/dL (2.4-3.5); Glucose 102 mg/dL (80-115); Potassium 3.7 mmol/L (3.5-5.1); Protein, Total 6.4 g/dL (5.8-8.1); Sodium 130 mmol/L (136-145)
[2022-04-27] MEDS: Nicotine 14 MG PATCH TD SCH (09:48)
[2022-04-27] MEDS: Sodium Chloride 0.9% 1,000 ML IV SCH (09:53)
[2022-04-27] MEDS ORDERED: Magnevist 469MG/ML 20 ML VIAL ONE (15:30)
[2022-04-28] MEDS: Sodium Chloride 0.9% 1,000 ML IV SCH (04:14)
[2022-04-28] MEDS: Morphine 2 MG/ML VIAL SLOW IVP PRN ×4 (04:23→18:11)
[2022-04-28 06:07] LABS: #Basophils 0.1 thou/uL (0.0-0.2); #Eosinphils 0.2 thou/uL (0.0-0.7); #Lymphocytes 1.7 thou/uL (1.20-3.40); #Monocytes 0.7 thou/uL (0.11-0.59); #Neutrophils 3.4 thou/uL (1.40-6.50); %Basophils 1.3 % (0.0-1.0); %Lymphocytes 27.5 % (21.0-51.0); %Neutrophils 56.2 % (42.0-75.0); Hemoglobin 13.7 g/dL (14.0-18.0); Mean Corpuscular Hemoglobin 34.5 pg (27.0-31.0); Mean Corpuscular Volume 98.3 fl (78.0-98.0); Mean Platelet Volume 7.6 fL (7.4-10.4); Platelet Count 101 10x3/uL (130-400); RBC Distribution Width 13.2 % (11.5-14.5); Red Blood Cell (RBC) Count 3.97 mill/uL (4.70-6.10); White Blood Cell (WBC) Count 6.1 10x3/uL (4.8-10.8)
[2022-04-28 06:15] LABS: INR-International Normal Ratio 1.3; Prothrombin Time 16.4 sec (12.0-14.7)
[2022-04-28] MEDS: Piperacillin/Tazobactam 3.375 GM in Sodium Chloride 0.9% 100 ML IVPB SCH ×2 (06:15→14:23)
[2022-04-28 06:25] LABS: ALT (SGPT) 32 U/L (8-55); AST (SGOT) 57 U/L (5-34); Albumin 1.9 g/dL (3.4-4.8); Alkaline Phosphatase 82 U/L (40-110); Anion Gap 7 mmol/L (10-20); BUN (Urea Nitrogen) 9 mg/dL (8.4-25.7); Bilirubin, Total 4.4 mg/dL (0.2-1.2); Calc. Creatinine Clearance 192 mL/min (70-130); Calcium 7.6 mg/dL (7.8-10.44); Carbon Dioxide 23 mmol/L (23-31); Chloride 106 mmol/L (98-107); Estimated GFR 102; Globulin 3.9 g/dL (2.4-3.5); Glucose 119 mg/dL (80-115); Potassium 3.7 mmol/L (3.5-5.1); Protein, Total 5.8 g/dL (5.8-8.1); Sodium 132 mmol/L (136-145)
[2022-04-28 16:48] VITALS: BP 115/72; TEMP 97.7
== END 2022-04-28 19:00 | disposition home or self-care (01) | DRG 446 ==
LOC: ERS 03:07 → ERHOLD 06:20 → SURG B 21:43 → OBSVTOIN 04-27 15:06
PROVIDERS: ADMIT Internal Medicine; ATTEND Family Medicine
DX: K80.00 Calculus of gallbladder with acute cholecystitis without obstruction (principal); Z20.822 Contact with and (suspected) exposure to COVID-19; K74.60 Unspecified cirrhosis of liver; F43.10 Post-traumatic stress disorder, unspecified; F17.210 Nicotine dependence, cigarettes, uncomplicated; F10.10 Alcohol abuse, uncomplicated; F32.A Depression, unspecified; E66.9 Obesity, unspecified; B18.2 Chronic viral hepatitis C; Z68.38 Body mass index [BMI] 38.0-38.9, adult; Z86.718 Personal history of other venous thrombosis and embolism; Z90.49 Acquired absence of other specified parts of digestive tract
CPT/HCPCS: 36415; 74177; 74183; 76705; 78226; 80053; 82105; 83690; 85025; 85610; 85730; 96365; 96375; 96376; A9537; A9579; G0378; J2270; J2272; J2405; J2543; J3490; J7050; Q9967; U0002

== ENCOUNTER 2022-05-15 14:03 | Inpatient (IN) | payer OTHER, MEDICAID ==
[2022-05-15 14:54] LABS: #Basophils 0.1 thou/uL (0.0-0.2); #Eosinphils 0.1 thou/uL (0.0-0.7); #Lymphocytes 1.2 thou/uL (1.20-3.40); #Monocytes 0.4 thou/uL (0.11-0.59); #Neutrophils 2.5 thou/uL (1.40-6.50); %Basophils 1.4 % (0.0-1.0); %Lymphocytes 28.6 % (21.0-51.0); %Monocytes 9.5 % (0.0-10.0); %Neutrophils 58.5 % (42.0-75.0); Hemoglobin 16.3 g/dL (14.0-18.0); Mean Corpuscular HGB CONC 35.9 g/dL (32.0-36.0); Mean Corpuscular Hemoglobin 34.5 pg (27.0-31.0); Mean Corpuscular Volume 95.9 fl (78.0-98.0); Platelet Count 103 10x3/uL (130-400); Red Blood Cell (RBC) Count 4.71 mill/uL (4.70-6.10); White Blood Cell (WBC) Count 4.2 10x3/uL (4.8-10.8)
[2022-05-15 15:17] LABS: ALT (SGPT) 39 U/L (8-55); AST (SGOT) 91 U/L (5-34); Albumin 2.6 g/dL (3.4-4.8); Alkaline Phosphatase 110 U/L (40-110); Anion Gap 11 mmol/L (10-20); BUN (Urea Nitrogen) 8 mg/dL (8.4-25.7); Bilirubin, Total 8.1 mg/dL (0.2-1.2); Calc. Creatinine Clearance 0 mL/min (70-130); Carbon Dioxide 20 mmol/L (23-31); Chloride 106 mmol/L (98-107); Estimated GFR 103; Globulin 4.7 g/dL (2.4-3.5); Glucose 125 mg/dL (80-115); Lipase 18 U/L (8-78); Potassium 3.7 mmol/L (3.5-5.1); Protein, Total 7.3 g/dL (5.8-8.1); Sodium 133 mmol/L (136-145)
[2022-05-15] MEDS ORDERED: Morphine 4 MG/ML VIAL ONE (17:23)
[2022-05-15 17:28] LABS: INR-International Normal Ratio 1.2; Prothrombin Time 16.1 sec (12.0-14.7)
[2022-05-15 17:29] LABS: PTT 34.2 sec (22.9-36.1)
[2022-05-15] MEDS ORDERED: Ondansetron PF 4 MG/2 ML Vial IVP PRN (17:37)
[2022-05-15] MEDS ORDERED: Acetaminophen 325 MG TAB PO PRN (17:37)
[2022-05-15] MEDS ORDERED: Piperacillin/Tazobactam 3.375 GM VIAL ONE (17:46)
[2022-05-15 17:50] LABS: Lactic Acid 1.6 mmol/L (0.5-2.2)
[2022-05-15] MEDS ORDERED: Sodium Chloride 0.9% 1,000 ML IV SCH (18:00)
[2022-05-15] MEDS ORDERED: Piperacillin/Tazobactam 3.375 GM in Sodium Chloride 0.9% 100 ML IVPB SCH (18:00)
[2022-05-15 20:08] VITALS: BMI 37.5
[2022-05-15] MEDS: Piperacillin/Tazobactam 3.375 GM in Sodium Chloride 0.9% 100 ML IVPB SCH (21:27)
[2022-05-15] MEDS: Morphine 4 MG/ML VIAL SLOW IVP PRN (21:27)
[2022-05-16] MEDS ORDERED: Acetaminophen 325 MG TAB PO PRN (00:29)
[2022-05-16] MEDS: Piperacillin/Tazobactam 3.375 GM in Sodium Chloride 0.9% 100 ML IVPB SCH ×3 (05:24→23:30)
[2022-05-16] MEDS: Morphine 4 MG/ML VIAL SLOW IVP PRN ×4 (05:27→20:51)
[2022-05-16 08:05] LABS: #Basophils 0.1 thou/uL (0.0-0.2); #Eosinphils 0.2 thou/uL (0.0-0.7); #Lymphocytes 1.9 thou/uL (1.20-3.40); #Monocytes 0.5 thou/uL (0.11-0.59); #Neutrophils 1.9 thou/uL (1.40-6.50); %Basophils 1.8 % (0.0-1.0); %Eosinophils 4.7 % (0.0-10.0); %Lymphocytes 41.1 % (21.0-51.0); %Monocytes 10.1 % (0.0-10.0); %Neutrophils 42.3 % (42.0-75.0); Hemoglobin 15.3 g/dL (14.0-18.0); Mean Corpuscular HGB CONC 34.5 g/dL (32.0-36.0); Mean Corpuscular Hemoglobin 33.6 pg (27.0-31.0); Mean Corpuscular Volume 97.6 fl (78.0-98.0); Mean Platelet Volume 6.8 fL (7.4-10.4); Platelet Count 117 10x3/uL (130-400); RBC Distribution Width 13.1 % (11.5-14.5); Red Blood Cell (RBC) Count 4.54 mill/uL (4.70-6.10); White Blood Cell (WBC) Count 4.5 10x3/uL (4.8-10.8)
[2022-05-16 08:20] LABS: INR-International Normal Ratio 1.3; Prothrombin Time 17.2 sec (12.0-14.7)
[2022-05-16 08:21] LABS: PTT 31.8 sec (22.9-36.1)
[2022-05-16 08:32] LABS: ALT (SGPT) 36 U/L (8-55); AST (SGOT) 83 U/L (5-34); Albumin 2.5 g/dL (3.4-4.8); Alkaline Phosphatase 100 U/L (40-110); Anion Gap 11 mmol/L (10-20); BUN (Urea Nitrogen) 11 mg/dL (8.4-25.7); Bilirubin, Direct 2.5 mg/dL (0.1-0.3); Bilirubin, Total 6.6 mg/dL (0.2-1.2); Calc. Creatinine Clearance 209 mL/min (70-130); Calcium 7.6 mg/dL (7.8-10.44); Carbon Dioxide 19 mmol/L (23-31); Chloride 110 mmol/L (98-107); Estimated GFR 105; Globulin 4.3 g/dL (2.4-3.5); Glucose 92 mg/dL (80-115); Lipase 23 U/L (8-78); Magnesium 1.4 mg/dL (1.6-2.6); Potassium 3.6 mmol/L (3.5-5.1); Protein, Total 6.8 g/dL (5.8-8.1); Sodium 136 mmol/L (136-145)
[2022-05-16] MEDS: Senokot S 8.6-50 MG TAB PO SCH ×2 (08:48→20:46)
[2022-05-16] MEDS: Polyethylene Glycol 3350 17 GM Packet PO SCH (08:48)
[2022-05-16] MEDS ORDERED: Pantoprazole 40 MG VIAL IVP SCH (09:00)
[2022-05-16] MEDS ORDERED: Piperacillin/Tazobactam 3.375 GM in Sodium Chloride 0.9% 100 ML IVPB SCH (14:00)
[2022-05-16] MEDS ORDERED: Magnesium 2 GM/50 ML(in water) 2 GM in Premix Bag 1 BAG IVPB SCH (15:00)
[2022-05-16] MEDS: Methylcellulose 500 MG TAB PO SCH (20:46)
[2022-05-17] MEDS: Morphine 4 MG/ML VIAL SLOW IVP PRN ×3 (05:37→21:22)
[2022-05-17] MEDS: Piperacillin/Tazobactam 3.375 GM in Sodium Chloride 0.9% 100 ML IVPB SCH ×3 (06:05→21:26)
[2022-05-17 07:21] LABS: #Basophils 0.1 thou/uL (0.0-0.2); #Eosinphils 0.2 thou/uL (0.0-0.7); #Lymphocytes 1.4 thou/uL (1.20-3.40); #Monocytes 0.5 thou/uL (0.11-0.59); #Neutrophils 1.9 thou/uL (1.40-6.50); %Basophils 1.4 % (0.0-1.0); %Lymphocytes 34.5 % (21.0-51.0); %Monocytes 12.7 % (0.0-10.0); %Neutrophils 46.4 % (42.0-75.0); Hemoglobin 14.2 g/dL (14.0-18.0); Mean Corpuscular HGB CONC 35.1 g/dL (32.0-36.0); Mean Corpuscular Hemoglobin 34.8 pg (27.0-31.0); Mean Platelet Volume 7.1 fL (7.4-10.4); Platelet Count 99 10x3/uL (130-400); RBC Distribution Width 13.3 % (11.5-14.5); Red Blood Cell (RBC) Count 4.07 mill/uL (4.70-6.10)
[2022-05-17 07:26] LABS: INR-International Normal Ratio 1.4; Prothrombin Time 17.3 sec (12.0-14.7)
[2022-05-17 07:39] LABS: ALT (SGPT) 33 U/L (8-55); AST (SGOT) 76 U/L (5-34); Albumin 2.1 g/dL (3.4-4.8); Alkaline Phosphatase 95 U/L (40-110); Anion Gap 8 mmol/L (10-20); BUN (Urea Nitrogen) 13 mg/dL (8.4-25.7); Bilirubin, Total 3.8 mg/dL (0.2-1.2); Calc. Creatinine Clearance 157 mL/min (70-130); Calcium 7.8 mg/dL (7.8-10.44); Carbon Dioxide 23 mmol/L (23-31); Chloride 108 mmol/L (98-107); Estimated GFR 97; Globulin 4.1 g/dL (2.4-3.5); Glucose 91 mg/dL (80-115); Magnesium 1.8 mg/dL (1.6-2.6); Protein, Total 6.2 g/dL (5.8-8.1); Sodium 135 mmol/L (136-145)
[2022-05-17] MEDS: Polyethylene Glycol 3350 17 GM Packet PO SCH (08:51)
[2022-05-17] MEDS: Methylcellulose 500 MG TAB PO SCH ×2 (08:51→21:21)
[2022-05-17] MEDS: Senokot S 8.6-50 MG TAB PO SCH ×2 (08:52→21:21)
[2022-05-18] MEDS: Morphine 4 MG/ML VIAL SLOW IVP PRN ×4 (04:33→22:19)
[2022-05-18 06:36] LABS: #Basophils 0.1 thou/uL (0.0-0.2); #Eosinphils 0.2 thou/uL (0.0-0.7); #Lymphocytes 1.3 thou/uL (1.20-3.40); #Monocytes 0.5 thou/uL (0.11-0.59); #Neutrophils 1.6 thou/uL (1.40-6.50); %Basophils 2.1 % (0.0-1.0); %Eosinophils 4.5 % (0.0-10.0); %Lymphocytes 37.2 % (21.0-51.0); %Monocytes 12.4 % (0.0-10.0); %Neutrophils 43.8 % (42.0-75.0); Hemoglobin 13.6 g/dL (14.0-18.0); Mean Corpuscular HGB CONC 34.9 g/dL (32.0-36.0); Mean Corpuscular Hemoglobin 34.1 pg (27.0-31.0); Mean Corpuscular Volume 97.9 fl (78.0-98.0); Mean Platelet Volume 7.1 fL (7.4-10.4); Platelet Count 86 10x3/uL (130-400); RBC Distribution Width 13.5 % (11.5-14.5); Red Blood Cell (RBC) Count 3.97 mill/uL (4.70-6.10); White Blood Cell (WBC) Count 3.6 10x3/uL (4.8-10.8)
[2022-05-18 06:51] LABS: INR-International Normal Ratio 1.4; Prothrombin Time 17.4 sec (12.0-14.7)
[2022-05-18 06:52] LABS: PTT 32.9 sec (22.9-36.1)
[2022-05-18 06:56] LABS: ALT (SGPT) 31 U/L (8-55); AST (SGOT) 66 U/L (5-34); Albumin 2.2 g/dL (3.4-4.8); Alkaline Phosphatase 86 U/L (40-110); Anion Gap 8 mmol/L (10-20); BUN (Urea Nitrogen) 13 mg/dL (8.4-25.7); Bilirubin, Total 2.9 mg/dL (0.2-1.2); Calc. Creatinine Clearance 187 mL/min (70-130); Calcium 7.6 mg/dL (7.8-10.44); Carbon Dioxide 21 mmol/L (23-31); Chloride 111 mmol/L (98-107); Estimated GFR 102; Globulin 3.7 g/dL (2.4-3.5); Glucose 95 mg/dL (80-115); Magnesium 1.7 mg/dL (1.6-2.6); Potassium 3.6 mmol/L (3.5-5.1); Protein, Total 5.9 g/dL (5.8-8.1); Sodium 136 mmol/L (136-145)
[2022-05-18] MEDS: Polyethylene Glycol 3350 17 GM Packet PO SCH (08:47)
[2022-05-18] MEDS: Piperacillin/Tazobactam 3.375 GM in Sodium Chloride 0.9% 100 ML IVPB SCH ×3 (08:47→22:15)
[2022-05-18] MEDS: Senokot S 8.6-50 MG TAB PO SCH ×2 (08:47→22:16)
[2022-05-18] MEDS: Methylcellulose 500 MG TAB PO SCH ×2 (08:47→22:16)
[2022-05-18] MEDS ORDERED: Magnesium 2 GM/50 ML(in water) 2 GM in Premix Bag 1 BAG IVPB SCH (14:00)
[2022-05-19] MEDS: Morphine 4 MG/ML VIAL SLOW IVP PRN ×4 (05:47→21:30)
[2022-05-19] MEDS: Piperacillin/Tazobactam 3.375 GM in Sodium Chloride 0.9% 100 ML IVPB SCH ×3 (05:50→21:29)
[2022-05-19 06:25] LABS: #Basophils 0.1 thou/uL (0.0-0.2); #Eosinphils 0.1 thou/uL (0.0-0.7); #Lymphocytes 1.7 thou/uL (1.20-3.40); #Monocytes 0.4 thou/uL (0.11-0.59); #Neutrophils 1.8 thou/uL (1.40-6.50); %Lymphocytes 40.5 % (21.0-51.0); %Monocytes 10.5 % (0.0-10.0); Hemoglobin 14.3 g/dL (14.0-18.0); Mean Corpuscular HGB CONC 35.7 g/dL (32.0-36.0); Mean Corpuscular Hemoglobin 34.8 pg (27.0-31.0); Mean Corpuscular Volume 97.4 fl (78.0-98.0); Mean Platelet Volume 7.4 fL (7.4-10.4); Platelet Count 89 10x3/uL (130-400); Red Blood Cell (RBC) Count 4.12 mill/uL (4.70-6.10); White Blood Cell (WBC) Count 4.1 10x3/uL (4.8-10.8)
[2022-05-19 06:34] LABS: INR-International Normal Ratio 1.2; PTT 32.7 sec (22.9-36.1)
[2022-05-19 07:14] LABS: ALT (SGPT) 34 U/L (8-55); AST (SGOT) 69 U/L (5-34); Albumin 2.5 g/dL (3.4-4.8); Alkaline Phosphatase 99 U/L (40-110); Anion Gap 9 mmol/L (10-20); BUN (Urea Nitrogen) 12 mg/dL (8.4-25.7); Bilirubin, Total 2.9 mg/dL (0.2-1.2); Calc. Creatinine Clearance 187 mL/min (70-130); Carbon Dioxide 20 mmol/L (23-31); Chloride 109 mmol/L (98-107); Estimated GFR 102; Glucose 85 mg/dL (80-115); Magnesium 1.8 mg/dL (1.6-2.6); Potassium 3.8 mmol/L (3.5-5.1); Protein, Total 6.5 g/dL (5.8-8.1); Sodium 134 mmol/L (136-145)
[2022-05-19] MEDS: Senokot S 8.6-50 MG TAB PO SCH ×2 (08:52→21:31)
[2022-05-19] MEDS: Methylcellulose 500 MG TAB PO SCH ×2 (08:52→21:31)
[2022-05-19] MEDS: Polyethylene Glycol 3350 17 GM Packet PO SCH (08:52)
[2022-05-20] MEDS: Morphine 4 MG/ML VIAL SLOW IVP PRN ×2 (05:45→10:47)
[2022-05-20] MEDS: Piperacillin/Tazobactam 3.375 GM in Sodium Chloride 0.9% 100 ML IVPB SCH (05:47)
[2022-05-20 06:41] LABS: #Basophils 0.1 thou/uL (0.0-0.2); #Eosinphils 0.1 thou/uL (0.0-0.7); #Lymphocytes 1.4 thou/uL (1.20-3.40); #Monocytes 0.4 thou/uL (0.11-0.59); #Neutrophils 1.6 thou/uL (1.40-6.50); %Basophils 2.5 % (0.0-1.0); %Eosinophils 3.5 % (0.0-10.0); %Lymphocytes 38.9 % (21.0-51.0); %Monocytes 10.3 % (0.0-10.0); %Neutrophils 44.9 % (42.0-75.0); Hemoglobin 14.2 g/dL (14.0-18.0); Mean Corpuscular HGB CONC 35.3 g/dL (32.0-36.0); Mean Corpuscular Hemoglobin 34.5 pg (27.0-31.0); Mean Corpuscular Volume 97.7 fl (78.0-98.0); Mean Platelet Volume 7.3 fL (7.4-10.4); Platelet Count 84 10x3/uL (130-400); RBC Distribution Width 14.2 % (11.5-14.5); Red Blood Cell (RBC) Count 4.12 mill/uL (4.70-6.10); White Blood Cell (WBC) Count 3.6 10x3/uL (4.8-10.8)
[2022-05-20 06:45] LABS: INR-International Normal Ratio 1.3; PTT 33.1 sec (22.9-36.1); Prothrombin Time 16.4 sec (12.0-14.7)
[2022-05-20 06:55] LABS: ALT (SGPT) 35 U/L (8-55); AST (SGOT) 67 U/L (5-34); Albumin 2.3 g/dL (3.4-4.8); Alkaline Phosphatase 89 U/L (40-110); Anion Gap 12 mmol/L (10-20); BUN (Urea Nitrogen) 11 mg/dL (8.4-25.7); Bilirubin, Total 3.2 mg/dL (0.2-1.2); Calc. Creatinine Clearance 196 mL/min (70-130); Calcium 8.1 mg/dL (7.8-10.44); Carbon Dioxide 21 mmol/L (23-31); Chloride 109 mmol/L (98-107); Estimated GFR 103; Globulin 4.1 g/dL (2.4-3.5); Glucose 97 mg/dL (80-115); Magnesium 1.6 mg/dL (1.6-2.6); Potassium 3.8 mmol/L (3.5-5.1); Protein, Total 6.4 g/dL (5.8-8.1); Sodium 138 mmol/L (136-145)
[2022-05-20 08:20] VITALS: TEMP 98
[2022-05-20] MEDS: Methylcellulose 500 MG TAB PO SCH (08:35)
[2022-05-20] MEDS: Polyethylene Glycol 3350 17 GM Packet PO SCH (08:36)
[2022-05-20] MEDS: Senokot S 8.6-50 MG TAB PO SCH (08:36)
[2022-05-20 12:14] VITALS: BP 117/79
== END 2022-05-20 14:01 | disposition home or self-care (01) | DRG 446 ==
LOC: ERS 14:03 → SUATTDRO 14:03 → T4-A 17:37
PROVIDERS: ADMIT Family Medicine; ATTEND Internal Medicine
DX: K80.60 Calculus of gallbladder and bile duct with cholecystitis, unspecified, without obstruction (principal); Z20.822 Contact with and (suspected) exposure to COVID-19; B18.2 Chronic viral hepatitis C; F43.10 Post-traumatic stress disorder, unspecified; F17.210 Nicotine dependence, cigarettes, uncomplicated; F32.A Depression, unspecified; K70.30 Alcoholic cirrhosis of liver without ascites; E83.42 Hypomagnesemia; E66.01 Morbid (severe) obesity due to excess calories; Z68.37 Body mass index [BMI] 37.0-37.9, adult; Z90.49 Acquired absence of other specified parts of digestive tract
CPT/HCPCS: 36415; 76705; 80053; 80076; 82248; 83605; 83690; 83735; 85025; 85610; 85730; 86850; 86900; 86901; 87040; 93005; 94760; 96365; 96375; C9113; J2270; J2543; J3475; J3490; J7050; U0003; U0005

== ENCOUNTER 2025-01-29 08:33 | Outpatient (CLI) | payer OTHER | END 2025-01-29 08:34 | disposition home or self-care (01) | LOC: CT 08:33 | PROVIDERS: ATTEND Family Medicine | DX: Z12.2 Encounter for screening for malignant neoplasm of respiratory organs (principal); F17.218 Nicotine dependence, cigarettes, with other nicotine-induced disorders | CPT/HCPCS: 71271 ==